=== PATIENT | female | born 1980 | race Caucasian/White ===

== ENCOUNTER 2018-12-01 23:16 | Observation (INO) | payer BC ==
[2018-12-01] MEDS ORDERED: Sodium Chloride 0.9% 1000 ML 1,000 ML IV STA ×2 (23:22→23:55)
[2018-12-01] MEDS ORDERED: Sodium Chloride 0.9% 1000 ML 1,000 ML ONE (23:54)
[2018-12-01 23:58] LABS: BASOPHIL % 0.2 % (0.0-0.4); Basophil (Absolute #) 0.02 (0-0.4); Eosinophil % 0.3 % (0.00-5.0); Eosinophil (Absolute #) 0.03 (0-0.5); Granulocytes % 67.5 % (36.0-66.0); Hematocrit 38.5 % (35-47); Hemoglobin 12.8 gm/dl (12.0-16.0); Lymphocytes % 24.4 % (24.0-44.0); Mean Cell Volume 86.7 fl (78-100); Mean Corpuscular Hemoglobin 28.8 pg (26-32); Mean Corpuscular Hgb Concent. 33.2 g/dl (32-36); Monocyte (Absolute #) 0.78 (0.0-1.3); Monocytes % 7.6 % (0.0-12.0); Platelet Count 191 K/mm3 (150-450); Red Blood Count 4.44 M/mm3 (4.1-5.4); Red Cell Distribution Width 13.3 % (11.5-14.0); White Blood Count 10.2 K/mm3 (4.0-10.5)
[2018-12-02 00:01] LABS: ALBUMIN 4.6 g/dL (3.5-5.0); ALKALINE PHOSPHATASE 67 U/L (38-126); ANION GAP 16.4 MEQ/L (5-15); BLOOD UREA NITROGEN 12 mg/dL (7-17); CHLORIDE 106 mmol/L (98-107); Calcium 9.4 mg/dL (8.4-10.2); Carbon Dioxide 23 mmol/L (22-30); Creatinine 1 0.72 mg/dL (0.52-1.04); ETHYL ALCOHOL 186 mg/dL (0-10); Glucose 90 mg/dL (74-106); Potassium 3.4 mmol/L (3.5-5.1); SGOT/AST 54 U/L (14-36); SGPT/ALT 30 U/L (0-35); SODIUM 142 mmol/L (137-145); Total Protein 8.1 g/dL (6.3-8.2)
[2018-12-02 00:02] LABS: ACETAMINOPHEN < 10 ug/ml (10-30); SALICYLATE < 1.0 mg/dL (2-20)
--- NOTE | 2018-12-02 00:03 | ERPHSYRPT ---
- History of Present Illness Time Seen by Provider: 12/01/18 23:30 Source: patient Exam Limitations: clinical condition Patient Subjective Stated Complaint: pt stating she has been drinking and took a bunch of pills. states she wants to go to [facility] to see her dad. Triage Nursing Assessment: pt alert and oriented, answers questions. pt tearful and uncooperative at times. pt arrive per ambulance, transfers to stretcher with assist of 3. respirations nonlabored with lungs cta. Physician History: PATIENT WITH A HISTORY OF DEPRESSION, SUICIDAL IDEATION, CHRONIC ALCOHOL ABUSE , AFTER DRINKING 5 BEERS TONIGHT, INGESTED NAPROSYN 500MG, INGESTED 26 PILLS 45 MINUTES PRIOR TO ARRIVAL. BOYFRIEND CALLED EMS WHILE PATIENT THREATENING TO COMMIT SUICIDE WHILE INGESTING PILLS. STATING SHE WANTS TO GO BE WITH HER FATHER IN [facility]. ADMITS TO DRINKING ALCOHOL SINCE AGE 11. DENIES HEADACHE, DYSPNEA, COUGH, EMESIS OR DIARRHEA Timing/Duration: today Severity of Symptoms-Max: none Severity of Symptoms-Current: none Context related to: other ( OF FATHER) Suicidal thoughts: attempt, ingestion Associated Symptoms: depressed, suicidal ideation Previous symptoms: same symptoms as today Allergies/Adverse Reactions: acetaminophen [From Pamprin Max] Allergy (Verified 12/01/18 23:46) aspirin [From Pamprin Max] Allergy (Verified 12/01/18 23:46) caffeine [From Pamprin Max] Allergy (Verified 12/01/18 23:46) coconut oil Allergy (Verified 12/01/18 23:46) red (food color) Allergy (Verified 12/01/18 23:46) uracil mustard Allergy (Verified 12/01/18 23:46) Home Medications: Quetiapine Fumarate 25 mg [Seroquel 25 MG] 25 mg PO HS 12/02/18 [History] Vilazodone HCl [Viibryd] 1 each PO HS 12/02/18 [History] Hx Tetanus, Diphtheria Vaccination/Date Given: Yes Hx Influenza Vaccination/Date Given: No Hx Pneumococcal Vaccination/Date Given: No Immunizations Up to Date: Yes - Past Medical History Pertinent Past Medical History: Yes Neurological History: Migraines Cardiac History: No Pertinent History Respiratory History: No Pertinent History Endocrine Medical History: No Pertinent History Musculoskeletal History: Osteoarthritis Other Medical History: post cardiomiopathy. recent diagnosis of tennis elbow - Past Surgical History Past Surgical History: Yes Gastrointestinal: Other Genitourinary: Other Female Surgical History: Section, Tubal Ligation Other Surgical History: breast augmentation, cystoscopy - Social History Smoking Status: Never smoker Exposure to second hand smoke: No Patient Lives Alone: No - Female History Hx Last Menstrual Period: this month Hx Now: No - Review of Systems Constitutional: No Fever, No Chills Eyes: No Symptoms Ears, Nose, & Throat: No Symptoms Respiratory: No Cough, No Dyspnea Cardiac: No Chest Pain, No Edema, No Syncope Abdominal/Gastrointestinal: No Abdominal Pain, No Nausea, No Vomiting, No Diarrhea Genitourinary Symptoms: No Dysuria Musculoskeletal: No Back Pain, No Neck Pain Skin: No Rash Neurological: No Dizziness, No Focal Weakness, No Sensory Changes Psychological: Depression, Suicidal Ideations, Emotional Lability Endocrine: No Symptoms All Other Systems: Reviewed and Negative - Nursing Vital Signs Nursing Vital Signs: Initial Vital Signs Temperature 98.7 F 12/01/18 23:20 Pulse Rate 112 H 12/01/18 23:20 Respiratory Rate 20 12/01/18 23:20 Blood Pressure 135/84 12/01/18 23:20 O2 Sat by Pulse Oximetry 98 12/01/18 23:20 Pain Scale Pain Intensity 0 - Physical Exam General Appearance: no apparent distress Eyes, Ears, Nose, Throat Exam: normal ENT inspection, moist mucous membranes Neck Exam: normal inspection, non-tender, supple Respiratory Exam: normal breath sounds, lungs clear, No respiratory distress Cardiovascular Exam: regular rate/rhythm, No edema Gastrointestinal/Abdominal Exam: soft, normal bowel sounds (NONTENDER), No tenderness, No distention Extremities Exam: normal inspection, normal range of motion, No evidence of injury, No edema Peripheral Pulses: carotid (R): 2+, carotid (L): 2+, femoral (R): 2+, femoral (L ): 2+, dorsalis-pedis (R): 2+, dorsalis-pedis (L): 0, 2+ Current Suicidality: denies suicide plan Neurological Exam: alert, loom checker II-XII nml as tested, 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 Appearance: appropriate appearance, impaired insight Behavior/Eye Contact/Speech: cooperative, intoxicated appearance Skin Exam: normal color, warm, dry, No rash SpO2 Interpretation: normal SpO2: 98 Ordered Tests: Active Orders 24 hr Category Date Time Status Pipe Coremaker STAT Care 12/01/18 23:23 Active EKG-ER Only STAT Care 12/01/18 23:22 Active ACETAMINOPHEN Stat Lab 12/01/18 23:36 Completed CBC W DIFF Stat Lab 12/01/18 23:36 Completed CMP Stat Lab 12/01/18 23:36 Completed ETHYL ALCOHOL Stat Lab 12/01/18 23:36 Completed HCG,QUALITATIVE URINE Stat Lab 12/02/18 00:05 Completed SALICYLATE Stat Lab 12/01/18 23:36 Completed TROPONIN Q3H Lab 12/01/18 23:36 Completed TROPONIN Q3H Lab 12/02/18 02:30 Ordered TROPONIN Q3H Lab 12/02/18 05:30 Ordered TROPONIN Q3H Lab 12/02/18 08:30 Ordered TROPONIN Q3H Lab 12/02/18 11:30 Ordered UA W/RFX UR CULTURE Stat Lab 12/02/18 00:05 Completed Urine Triage Profile Stat Lab 12/02/18 00:05 Completed VENOUS BLOOD GAS Stat Lab 12/01/18 23:56 Completed Transfer Order Routine Transfer 12/02/18 Ordered Medication Summary Discontinued Medications Generic Name Dose Route Start Last Admin Trade Name Freq PRN Reason Stop Dose Admin Sodium Chloride 1,000 mls @ 999 mls/hr 12/01/18 23:22 12/02/18 00:38 Sodium Chloride 0.9% 1000 Ml IV 12/02/18 00:22 Infused .Q1H1M STA Infusion Sodium Chloride 1,000 mls @ 999 mls/hr 12/01/18 23:55 12/02/18 00:37 Sodium Chloride 0.9% 1000 Ml IV 12/02/18 00:55 999 mls/hr .Q1H1M STA Administration Sodium Chloride Confirm 12/01/18 23:54 Sodium Chloride 0.9% 1000 Ml Administered 12/01/18 23:55 Dose 1,000 mls @ ud .ROUTE .STK-MED ONE Sodium Chloride Confirm 12/02/18 00:35 Sodium Chloride 0.9% 1000 Ml Administered 12/02/18 00:36 Dose 1,000 mls @ ud .ROUTE .STK-MED ONE Lab/Rad Data: Laboratory Result Diagrams 12/01/18 23:36 12/01/18 23:36 Laboratory Results 12/02/18 12/02/18 12/02/18 Range/Units 00:05 00:05 00:05 WBC (4.0-10.5) K/mm3 RBC (4.1-5.4) M/mm3 Hgb (12.0-16.0) gm/dl Hct (35-47) % MCV (78-100) fl MCH (26-32) pg MCHC (32-36) g/dl RDW (11.5-14.0) % Plt Count (150-450) K/mm3 MPV (6-9.5) fl Gran % (36.0-66.0) % Eos # (Auto) (0-0.5) Absolute Lymphs (auto) (1.0-4.6) Absolute Monos (auto) (0.0-1.3) Lymphocytes % (24.0-44.0) % Monocytes % (0.0-12.0) % Eosinophils % (0.00-5.0) % Basophils % (0.0-0.4) % Absolute Granulocytes (1.4-6.9) Basophils # (0-0.4) pO2/FiO2 Ratio % VBG pH (7.32-7.42) VBG pCO2 at Pat Temp (42-55) mm/Hg VBG pO2 at Pat Temp (25-40) mm/Hg VBG HCO3 (22-28) meq/L VBG O2 Sat (Harshil) (95-100) VBG Base Excess (-2.0-2.0) VBG Hemoglobin VBG Carboxyhemoglobin (0.0-6.9) % T HGB POC Potassium (3.5-5.1) Sodium (137-145) mmol/L Potassium (3.5-5.1) mmol/L Chloride (98-107) mmol/L Carbon Dioxide (22-30) mmol/L Anion Gap (5-15) MEQ/L BUN (7-17) mg/dL Creatinine (0.52-1.04) mg/dL Estimated GFR ML/MIN Glucose (74-106) mg/dL Calcium (8.4-10.2) mg/dL Total Bilirubin (0.2-1.3) mg/dL AST (14-36) U/L ALT (0-35) U/L Alkaline Phosphatase (38-126) U/L Troponin I (0.000-0.034) ng/mL Serum Total Protein (6.3-8.2) g/dL Albumin (3.5-5.0) g/dL Urine Color COLORLESS (YELLOW) Urine Appearance CLEAR (CLEAR) Urine pH 6.0 (5-6) Ur Specific Vermillion 1.001 (1.005-1.025) Urine Protein NEGATIVE (Negative) Urine Ketones NEGATIVE (NEGATIVE) Urine Blood NEGATIVE (0-5) Narendra/ul Urine Nitrite NEGATIVE (NEGATIVE) Urine Bilirubin NEGATIVE (NEGATIVE) Urine Urobilinogen NEGATIVE (0-1) mg/dL Ur Leukocyte Esterase NEGATIVE (NEGATIVE) Urine WBC (Auto) NONE SEEN (0-5) /HPF Urine RBC (Auto) NONE SEEN (0-2) /HPF U Epithel Cells (Auto) NONE (FEW) /HPF Urine Bacteria (Auto) NONE SEEN (NEGATIVE) /HPF Urine Culture Reflexed NO (NO) Urine Glucose NEGATIVE (NEGATIVE) mg/dL Urine HCG, Qual NEGATIVE (Negative) Salicylates (2-20) mg/dL Urine Opiates Level NEGATIVE (NEGATIVE) Ur Methadone NEGATIVE (NEGATIVE) Acetaminophen (10-30) ug/ml Urine Barbiturates NEGATIVE (NEGATIVE) Ur Phencyclidine (PCP) NEGATIVE (NEGATIVE) Urine Amphetamine NEGATIVE (NEGATIVE) U Benzodiazepine Level NEGATIVE (NEGATIVE) Urine Cocaine NEGATIVE (NEGATIVE) Urine Marijuana (THC) NEGATIVE (NEGATIVE) Ethyl Alcohol (0-10) mg/dL 12/02/18 12/01/18 12/01/18 Range/Units 00:01 23:36 23:36 WBC (4.0-10.5) K/mm3 RBC (4.1-5.4) M/mm3 Hgb (12.0-16.0) gm/dl Hct (35-47) % MCV (78-100) fl MCH (26-32) pg MCHC (32-36) g/dl RDW (11.5-14.0) % Plt Count (150-450) K/mm3 MPV (6-9.5) fl Gran % (36.0-66.0) % Eos # (Auto) (0-0.5) Absolute Lymphs (auto) (1.0-4.6) Absolute Monos (auto) (0.0-1.3) Lymphocytes % (24.0-44.0) % Monocytes % (0.0-12.0) % Eosinophils % (0.00-5.0) % Basophils % (0.0-0.4) % Absolute Granulocytes (1.4-6.9) Basophils # (0-0.4) pO2/FiO2 Ratio 21.0 % VBG pH 7.35 (7.32-7.42) VBG pCO2 at Pat Temp 46 (42-55) mm/Hg VBG pO2 at Pat Temp 22 L (25-40) mm/Hg VBG HCO3 25.4 (22-28) meq/L VBG O2 Sat (Harshil) 38.0 L (95-100) VBG Base Excess -0.6 (-2.0-2.0) VBG Hemoglobin 13.2 VBG Carboxyhemoglobin 2.5 (0.0-6.9) % T HGB POC Potassium 3.4 L (3.5-5.1) Sodium 142 (137-145) mmol/L Potassium 3.4 L (3.5-5.1) mmol/L Chloride 106 (98-107) mmol/L Carbon Dioxide 23 (22-30) mmol/L Anion Gap 16.4 H (5-15) MEQ/L BUN 12 (7-17) mg/dL Creatinine 0.72 (0.52-1.04) mg/dL Estimated GFR > 60.0 ML/MIN Glucose 90 (74-106) mg/dL Calcium 9.4 (8.4-10.2) mg/dL Total Bilirubin 0.30 (0.2-1.3) mg/dL AST 54 H (14-36) U/L ALT 30 (0-35) U/L Alkaline Phosphatase 67 (38-126) U/L Troponin I < 0.012 (0.000-0.034) ng/mL Serum Total Protein 8.1 (6.3-8.2) g/dL Albumin 4.6 (3.5-5.0) g/dL Urine Color (YELLOW) Urine Appearance (CLEAR) Urine pH (5-6) Ur Specific Vermillion (1.005-1.025) Urine Protein (Negative) Urine Ketones (NEGATIVE) Urine Blood (0-5) Narendra/ul Urine Nitrite (NEGATIVE) Urine Bilirubin (NEGATIVE) Urine Urobilinogen (0-1) mg/dL Ur Leukocyte Esterase (NEGATIVE) Urine WBC (Auto) (0-5) /HPF Urine RBC (Auto) (0-2) /HPF U Epithel Cells (Auto) (FEW) /HPF Urine Bacteria (Auto) (NEGATIVE) /HPF Urine Culture Reflexed (NO) Urine Glucose (NEGATIVE) mg/dL Urine HCG, Qual (Negative) Salicylates < 1.0 L (2-20) mg/dL Urine Opiates Level (NEGATIVE) Ur Methadone (NEGATIVE) Acetaminophen < 10 L (10-30) ug/ml Urine Barbiturates (NEGATIVE) Ur Phencyclidine (PCP) (NEGATIVE) Urine Amphetamine (NEGATIVE) U Benzodiazepine Level (NEGATIVE) Urine Cocaine (NEGATIVE) Urine Marijuana (THC) (NEGATIVE) Ethyl Alcohol 186 H (0-10) mg/dL 12/01/18 Range/Units 23:36 WBC 10.2 (4.0-10.5) K/mm3 RBC 4.44 (4.1-5.4) M/mm3 Hgb 12.8 (12.0-16.0) gm/dl Hct 38.5 (35-47) % MCV 86.7 (78-100) fl MCH 28.8 (26-32) pg MCHC 33.2 (32-36) g/dl RDW 13.3 (11.5-14.0) % Plt Count 191 (150-450) K/mm3 MPV 11.0 H (6-9.5) fl Gran % 67.5 H (36.0-66.0) % Eos # (Auto) 0.03 (0-0.5) Absolute Lymphs (auto) 2.50 (1.0-4.6) Absolute Monos (auto) 0.78 (0.0-1.3) Lymphocytes % 24.4 (24.0-44.0) % Monocytes % 7.6 (0.0-12.0) % Eosinophils % 0.3 (0.00-5.0) % Basophils % 0.2 (0.0-0.4) % Absolute Granulocytes 6.90 (1.4-6.9) Basophils # 0.02 (0-0.4) pO2/FiO2 Ratio % VBG pH (7.32-7.42) VBG pCO2 at Pat Temp (42-55) mm/Hg VBG pO2 at Pat Temp (25-40) mm/Hg VBG HCO3 (22-28) meq/L VBG O2 Sat (Harshil) (95-100) VBG Base Excess (-2.0-2.0) VBG Hemoglobin VBG Carboxyhemoglobin (0.0-6.9) % T HGB POC Potassium (3.5-5.1) Sodium (137-145) mmol/L Potassium (3.5-5.1) mmol/L Chloride (98-107) mmol/L Carbon Dioxide (22-30) mmol/L Anion Gap (5-15) MEQ/L BUN (7-17) mg/dL Creatinine (0.52-1.04) mg/dL Estimated GFR ML/MIN Glucose (74-106) mg/dL Calcium (8.4-10.2) mg/dL Total Bilirubin (0.2-1.3) mg/dL AST (14-36) U/L ALT (0-35) U/L Alkaline Phosphatase (38-126) U/L Troponin I (0.000-0.034) ng/mL Serum Total Protein (6.3-8.2) g/dL Albumin (3.5-5.0) g/dL Urine Color (YELLOW) Urine Appearance (CLEAR) Urine pH (5-6) Ur Specific Vermillion (1.005-1.025) Urine Protein (Negative) Urine Ketones (NEGATIVE) Urine Blood (0-5) Narendra/ul Urine Nitrite (NEGATIVE) Urine Bilirubin (NEGATIVE) Urine Urobilinogen (0-1) mg/dL Ur Leukocyte Esterase (NEGATIVE) Urine WBC (Auto) (0-5) /HPF Urine RBC (Auto) (0-2) /HPF U Epithel Cells (Auto) (FEW) /HPF Urine Bacteria (Auto) (NEGATIVE) /HPF Urine Culture Reflexed (NO) Urine Glucose (NEGATIVE) mg/dL Urine HCG, Qual (Negative) Salicylates (2-20) mg/dL Urine Opiates Level (NEGATIVE) Ur Methadone (NEGATIVE) Acetaminophen (10-30) ug/ml Urine Barbiturates (NEGATIVE) Ur Phencyclidine (PCP) (NEGATIVE) Urine Amphetamine (NEGATIVE) U Benzodiazepine Level (NEGATIVE) Urine Cocaine (NEGATIVE) Urine Marijuana (THC) (NEGATIVE) Ethyl Alcohol (0-10) mg/dL - Progress Progress Note: 02/23/19 00:08 CONSULTED POISON CONTROL AT 2345, IV NORMAL SALINE 1 LITER/HR X 2, ALL LABS REVIEWED AND ARE NORMAL EXCEPT ETOH-186, ACTMN<10, SALIC <1, K+3.4 Discussed with : John (DISCUSSED WITH DR PRITCHETT AT 0045 FOR OBSERVATION) - Departure Time of Disposition: 01:09 Departure Disposition: Observation Clinical Impression: SUICIDAL IDEATION, ATTEMPTED DRUG OVERDOSE, ALCOHOL INTOXICATION Condition: Stable Critical Care Time: No Referrals: DEVORA BARKER [Primary Care Provider] -
[2018-12-02 00:08] LABS: VBG BASE EXCESS -0.6 (-2.0-2.0); VBG CARBOXYHEMOGLOBIN 2.5 % T HGB (0.0-6.9); VBG HCO3- 25.4 meq/L (22-28); VBG HEMOGLOBIN 13.2; VBG POTASSIUM 3.4 (3.5-5.1); VBG pH 7.35 (7.32-7.42)
[2018-12-02 00:12] LABS: Appearance CLEAR (CLEAR); Bilirubin NEGATIVE (NEGATIVE); Blood NEGATIVE Ery/ul (0-5); Glucose NEGATIVE (NEGATIVE); Ketones NEGATIVE (NEGATIVE); Leukocyte Esterase NEGATIVE (NEGATIVE); Nitrite NEGATIVE (NEGATIVE); Protein,Urine Dip NEGATIVE (Negative); Specific Gravity 1.001 (1.005-1.025); Urobilinogen NEGATIVE mg/dL (0-1)
[2018-12-02 00:13] LABS: Bacteria NONE SEEN /HPF (NEGATIVE); RBC NONE SEEN /HPF (0-2); WBC NONE SEEN /HPF (0-5)
[2018-12-02 00:26] LABS: Amphetamine,Urine NEGATIVE (NEGATIVE); Barbiturate,Urine NEGATIVE (NEGATIVE); Benzodiazepine,Urine NEGATIVE (NEGATIVE); Cocaine,Urine NEGATIVE (NEGATIVE); Methadone,Urine NEGATIVE (NEGATIVE); Opiate,Urine NEGATIVE (NEGATIVE); PCP,Urine NEGATIVE (NEGATIVE); THC,Urine NEGATIVE (NEGATIVE)
[2018-12-02] MEDS ORDERED: Sodium Chloride 0.9% 1000 ML 1,000 ML ONE (00:35)
[2018-12-02] MEDS ORDERED: Zofran 4 MG/2 ML VIAL IV ONE (01:31)
[2018-12-02] MEDS ORDERED: Zofran 4 MG/2 ML VIAL ONE (01:36)
[2018-12-02] MEDS ORDERED: Ativan 2 MG/1 ML VIAL ONE (01:36)
[2018-12-02] MEDS: Ativan 2 MG/1 ML VIAL IV ONE ×2 (01:41→01:46)
[2018-12-02] MEDS ORDERED: Sodium Chloride 0.9% W/ 20 mEq KCl/LITER 1,000 ML IV SCH (02:59)
[2018-12-02] MEDS ORDERED: Ativan 2 MG/1 ML VIAL IV PRN (03:02)
[2018-12-02] MEDS ORDERED: PROTONIX 40 MG IV IV SCH (04:00)
[2018-12-02 04:23] LABS: ACETAMINOPHEN < 10 ug/ml (10-30); SALICYLATE < 1.0 mg/dL (2-20)
[2018-12-02] MEDS: Zofran 4 MG/2 ML VIAL IV PRN ×3 (06:26→18:54)
[2018-12-02] MEDS ORDERED: FLUZONE QUAD (36mo-64yo) 2018-2019 SYRINGE IM ONE (10:00)
[2018-12-02] MEDS ORDERED: MEDICATION INTERVENTION PO SCH (10:45)
[2018-12-02] MEDS: Sodium Chloride 0.9% 1000 ML 1,000 ML IV SCH ×3 (11:29→22:41)
[2018-12-02 11:49] LABS: ALBUMIN 3.8 g/dL (3.5-5.0); ALKALINE PHOSPHATASE 55 U/L (38-126); ANION GAP 13.6 MEQ/L (5-15); BLOOD UREA NITROGEN 9 mg/dL (7-17); CHLORIDE 108 mmol/L (98-107); Calcium 8.4 mg/dL (8.4-10.2); Carbon Dioxide 22 mmol/L (22-30); Creatinine 1 0.75 mg/dL (0.52-1.04); ETHYL ALCOHOL < 10 mg/dL (0-10); Glucose 100 mg/dL (74-106); Potassium 3.8 mmol/L (3.5-5.1); SGOT/AST 32 U/L (14-36); SGPT/ALT 25 U/L (0-35); SODIUM 139 mmol/L (137-145); Total Protein 6.8 g/dL (6.3-8.2)
[2018-12-02] MEDS ORDERED: Seroquel 25 MG ONE (16:59)
[2018-12-02 21:58] LABS: ALBUMIN 3.6 g/dL (3.5-5.0); ALKALINE PHOSPHATASE 45 U/L (38-126); ANION GAP 10.1 MEQ/L (5-15); BLOOD UREA NITROGEN 8 mg/dL (7-17); CHLORIDE 109 mmol/L (98-107); Calcium 8.2 mg/dL (8.4-10.2); Carbon Dioxide 22 mmol/L (22-30); Creatinine 1 0.73 mg/dL (0.52-1.04); Glucose 98 mg/dL (74-106); Potassium 3.8 mmol/L (3.5-5.1); SGOT/AST 30 U/L (14-36); SGPT/ALT 23 U/L (0-35); SODIUM 138 mmol/L (137-145); Total Protein 6.4 g/dL (6.3-8.2)
[2018-12-02] MEDS ORDERED: NON-FORMULARY ITEM PO SCH (22:00)
[2018-12-02] MEDS ORDERED: Seroquel 25 MG PO SCH (22:00)
[2018-12-02] MEDS ORDERED: VILAZODONE HCL PO SCH (22:00)
[2018-12-02 23:59] VITALS: BP 143/86; O2SAT 100
[2018-12-03 00:05] VITALS: PULSE 96
[2018-12-03] MEDS ORDERED: PROTONIX 40 MG IV IV SCH (10:00)
--- NOTE | 2018-12-04 11:01 | HP ---
CHIEF COMPLAINT: Intentional overdose of naproxen and alcohol. HISTORY OF PRESENT ILLNESS: The patient is a 38 year-old white female who reports that she took approximately 26 naproxen pills. She reports those pills were new to her for tennis elbow. She had just started taking them. She normally sees Jocy Manzanares. She has also been placed on new antidepressant. She is on Seroquel 25 mg at night. She reports she did see somebody over at [place] previously but that physician has left town and she is not currently in outpatient management. MEDICATIONS: Her other medications include Viibryd. ALLERGIES: TYLENOL, ASPIRIN, CAFFEINE, URACIL. PHYSICAL EXAMINATION: Revealed a well nourished, well developed 38 year-old white female who is cooperative to exam this morning although that was not the case last evening. She currently voices no intention to do herself any harm presently. Her vital signs on admission showed temperature 98.7F, pulse 112, respiratory rate 20, blood pressure 135/84. O2 saturation 98%. HEENT: Normocephalic, atraumatic. Pupils equal round reactive to light. Extraocular movements intact. Oropharynx is pink and moist. NECK: Supple without lymphadenopathy, thyromegaly or JVD. CHEST: Clear to auscultation. HEART: Regular rate and rhythm without murmurs, rubs or gallops. ABDOMEN: Soft. No palpable masses. EXTREMITIES: Without cyanosis, clubbing or edema. NEUROLOGIC: The patient is alert and oriented x3. She is somewhat subdued in her mood and her affect is somewhat flat. LAB DATA AND TESTS: Revealed ETOH this morning to be 32. Acetaminophen and salicylates were negative. Urine HCG was negative. Her CBC was normal. Metabolic panel showed sugar 90, BUN 12, creatinine 0.72. Potassium was somewhat low at 3.4. Liver enzymes show slight elevation of AST at 54. ETOH on admission was 186. Her venous blood gas showed pH 7.35, pCO2 46. Troponin was less than 0.012. Urine drug screen was negative. UA was normal with specific gravity of 1.001. The patient has sinus tachycardia on telemetry tracing but otherwise shows no acute changes. ASSESSMENT: We will obtain [facility] consultation due to her current affect presently and stating that she does not wish to do herself any harm, will likely recommend outpatient follow up, to be discharged home with someone that can stay with her. We have been flushing her kidneys with normal saline currently 200 cc/hour. We will monitor her kidney function and liver function for possibility of damage. She does report some nausea from the medication otherwise. She is currently being monitored in the ICU and we will monitor her and discharge her when she is stable medically as per [facility]'s recommendations.
== END 2018-12-03 01:27 ==
LOC: ED 23:16 → ICU 12-02 02:50
PROVIDERS: ADMIT Family Medicine; ATTEND Family Medicine
DX: T39.312A Poisoning by propionic acid derivatives, intentional self-harm, initial encounter (principal); F10.929 Alcohol use, unspecified with intoxication, unspecified; Z79.899 Other long term (current) drug therapy
CPT/HCPCS: 36415; 80053; 80307; 81001; 82805; 84484; 84703; 85025; 93005; 93041; 96360; 96374; 96375; 99285; G0008; G0378; G0481; 90686; 90791; J2060; J2405; Q3014; A9270-GY; G0480

== ENCOUNTER 2020-11-18 06:24 | Day surgery (SDC) | payer OTHER ==
[~2020-11-18 06:24] MED LIST: Lactated Ringers 1,000 ML IV ONE
[2020-11-18] MEDS ORDERED: CEFAZOLIN 2 GM-D5W BAG** 2 GM/50 ML ML IV SCH (06:30)
[2020-11-18] MEDS ORDERED: Lactated Ringers 1,000 ML IV SCH (07:00)
[2020-11-18] MEDS ORDERED: Xylocaine-Mpf 2% 5 Ml Vial ONE (08:12)
[2020-11-18] MEDS ORDERED: SUBLIMAZE 100 MCG/2 ML ONE ×2 (08:12→08:50)
[2020-11-18] MEDS ORDERED: Decadron 4 MG INJ ONE (08:12)
[2020-11-18] MEDS ORDERED: Zofran 4 MG/2 ML VIAL ONE ×2 (08:12→09:00)
[2020-11-18] MEDS ORDERED: DIPRIVAN 200 MG/20 ML IV ONE (08:12)
[2020-11-18] MEDS ORDERED: Hydromorphone 1 mg/ml Injection ONE (08:50)
[2020-11-18] MEDS ORDERED: Lactated Ringers 1,000 ML IV ONE (09:02)
[2020-11-18] MEDS ORDERED: Compazine 10 MG/2 ML IV ONE (10:23)
[2020-11-18] MEDS ORDERED: TORAdol 30 mg Injection IV ONE (10:33)
[2020-11-18] MEDS ORDERED: TORAdol 30 mg Injection ONE (10:36)
[2020-11-18 10:51] VITALS: BP 127/85; PULSE 78; O2SAT 98
--- NOTE | 2020-11-19 07:43 | OP ---
SURGERY DATE/TIME: 11/18/2020811 PREOPERATIVE DIAGNOSIS: Abnormal uterine bleeding. POSTOPERATIVE DIAGNOSIS: Abnormal uterine bleeding. PROCEDURE: Hysteroscopy D&C with NovaSure ablation. SURGEON: Sebastian France D.O. INSTALL TECHNICIAN: Jonny Metzger surgical pathologist. ANESTHESIA: General. ESTIMATED BLOOD LOSS: Minimal. COMPLICATIONS: None. INDICATIONS: The risks, benefits, indications and alternatives of the procedure were reviewed with the patient prior to the procedure. The patient understood the risk of infection, bleeding, bowel injury, bladder injury, ureteral injury, uterine perforation, pelvic infection, thromboembolic disorder associated with this surgery and desires to have this surgery as a possible means to alleviate her current medical condition. DESCRIPTION OF PROCEDURE AND FINDINGS: At this point the patient is taken to the operating room, given general sedation, placed in the dorsal lithotomy position. Prepped and draped in the usual sterile fashion. A weighted speculum is then placed in the patient's vagina and the anterior lip of the cervix was grasped with a single tooth tenaculum. Endocervical dilators were advanced through the endocervical canal as a means to dilate the cervix and at this point sound was used to measure the uterine size which was approximately 8 to 9 cm. From this point the 5 mm hysteroscope was then placed in through the endocervical canal where visualization revealed no gross abnormalities. The hysteroscope was then removed and at this point a curette was introduced into the fundus of the uterus where curettage was performed in all quadrants of the uterus retrieving a mild to moderate amount of tissue. From this point the curette was removed and the NovaSure was then placed through the endocervical canal where it was engaged and the machine was turned on. It was measured with a length of 6.5 cm and a width of 4.0. The machine was turned on for approximately 49 seconds. After completion of the ablation the NovaSure was disengaged and removed from the uterine cavity. All subsequent instruments were then removed from the patient's vaginal region at this time. The patient was then taken out of the dorsal lithotomy position, was taken out of anesthesia and was then taken to the recovery room in stable condition. All instruments and laps were accounted for x2.
== END 2020-11-18 10:55 | disposition home or self-care (01) ==
LOC: SDC 06:24
PROVIDERS: ATTEND Obstetrics & Gynecology
DX: N93.9 Abnormal uterine and vaginal bleeding, unspecified (principal)
CPT/HCPCS: 84703; J0690; J1100; J1170; J1885; J2405; J2704; J3010

== ENCOUNTER 2021-07-05 13:49 | Emergency (ER) | payer OTHER ==
[2021-07-05] MEDS ORDERED: Rocephin 1000 MG INJ IM ONE (14:06)
[2021-07-05] MEDS ORDERED: Rocephin 1000 MG INJ ONE (14:08)
[2021-07-05] MEDS ORDERED: XYLOCAINE 1% HCL 20 ML MDV ONE (14:08)
--- NOTE | 2021-07-05 14:11 | ERPHSYRPT ---
- History of Present Illness Time Seen by Provider: 07/05/21 14:07 Source: patient Exam Limitations: no limitations Patient Subjective Stated Complaint: Sore throat Triage Nursing Assessment: Patient ambulated back to ED and transferred self to bed. Patient A+O X3. Patient's skin pink, warm and dry. Patient complains of sore throat since yesterday. Patient complains of constant sharp pain 10/10 to throat. Redness and white patches noted in back of throat. Physician History: Patient complains of sore throat since yesterday. Patient complains of constant sharp pain 10/10 to throat. Redness and white patches noted in back of throat. Timing/Duration: yesterday Cough Quality/Degree: no cough Associated Symptoms: sore throat Allergies/Adverse Reactions: acetaminophen [From Pamprin Max] Allergy (Verified 07/05/21 13:55) aspirin [From Pamprin Max] Allergy (Verified 07/05/21 13:55) caffeine [From Pamprin Max] Allergy (Verified 07/05/21 13:55) coconut oil Allergy (Verified 07/05/21 13:55) red (food color) Allergy (Verified 07/05/21 13:55) uracil mustard Allergy (Verified 07/05/21 13:55) Home Medications: ALPRAZolam 0.25 MG [xanAX 0.25 MG] 0.25 mg PO BID 11/10/20 [History] Amitriptyline HCl 25 mg [Elavil 25 mg] 25 mg PO DAILY 11/10/20 [History] Famotidine [Pepcid] 20 mg PO BID 11/10/20 [History] Lurasidone HCl [Latuda] 40 mg PO HS 11/10/20 [History] Metoprolol Succinate [Toprol Xl] 25 mg PO DAILY 11/10/20 [History] Cetirizine HCl [Zyrtec] 5 mg PO DAILY 11/18/20 [History] Hx Tetanus, Diphtheria Vaccination/Date Given: Yes Hx Influenza Vaccination/Date Given: No Hx Pneumococcal Vaccination/Date Given: No Immunizations Up to Date: Yes Travel Risk - International Travel Have you traveled outside of the country in past 3 weeks: No - Coronavirus Screening Are you exhibiting any of the following symptoms?: No Close contact with a COVID-19 positive Pt in past 14-21 Days: No - Vaccine Status Have you recieved a Covid-19 vaccination: No - Review of Systems Constitutional: No Symptoms Eyes: No Symptoms Ears, Nose, & Throat: Throat Pain Respiratory: No Symptoms Cardiac: No Symptoms Abdominal/Gastrointestinal: No Symptoms Genitourinary Symptoms: No Symptoms Musculoskeletal: No Symptoms - Past Medical History Pertinent Past Medical History: Yes Neurological History: No Pertinent History ENT History: No Pertinent History Cardiac History: Other Respiratory History: No Pertinent History Endocrine Medical History: No Pertinent History Musculoskeletal History: No Pertinent History GI Medical History: No Pertinent History History: No Pertinent History Psycho-Social History: Depression Female Reproductive Disorders: No Pertinent History Other Medical History: cardiomyopathy - Past Surgical History Past Surgical History: Yes Neuro Surgical History: No Pertinent History Cardiac: No Pertinent History Respiratory: No Pertinent History Gastrointestinal: Other Genitourinary: Other Musculoskeletal: No Pertinent History Female Surgical History: Section, Tubal Ligation Other Surgical History: breast augmentation, cystoscopy, kidney stone removal - Social History Smoking Status: Never smoker Exposure to second hand smoke: No Drug Use: none Patient Lives Alone: No - Female History Hx Last Menstrual Period: ablation Hx Now: No - Nursing Vital Signs Nursing Vital Signs: Initial Vital Signs Temperature 98.4 F 07/05/21 13:56 Pulse Rate 111 H 07/05/21 13:56 Respiratory Rate 18 07/05/21 13:56 Blood Pressure 149/98 07/05/21 13:56 O2 Sat by Pulse Oximetry 97 07/05/21 13:56 Pain Scale Pain Intensity 10 - Physical Exam General Appearance: no apparent distress, alert Eye Exam: PERRL/EOMI, eyes nml inspection Ears, Nose, Throat Exam: normal ENT inspection, TMs normal, moist mucous membranes, pharyngeal erythema, tonsillar exudate Neck Exam: normal inspection, non-tender, supple, full range of motion Respiratory Exam: normal breath sounds, lungs clear, No respiratory distress Cardiovascular Exam: regular rate/rhythm, normal heart sounds Gastrointestinal/Abdomen Exam: soft, No tenderness Back Exam: normal inspection, No CVA tenderness, No vertebral tenderness Extremity Exam: normal inspection, normal range of motion Neurologic Exam: alert, 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, cooperative, normal mood/affect, sensation nml, No motor deficits Skin Exam: normal color, warm, dry, No rash Lymphatic Exam: No adenopathy SpO2: 97 - Course Nursing assessment & vital signs reviewed: Yes Ordered Tests: Medication Summary Discontinued Medications Generic Name Dose Route Start Last Admin Trade Name Mindy PRN Reason Stop Dose Admin Ceftriaxone Sodium 1,000 mg 07/05/21 14:06 Rocephin 1000 Mg Inj IM 07/05/21 14:07 STAT ONE - Progress Progress: unchanged Air Movement: good Blood Culture(s) Obtained: No Antibiotics given: Yes Counseled pt/family regarding: diagnosis, need for follow-up - Departure Departure Disposition: Home Clinical Impression: Strep pharyngitis Condition: Stable Critical Care Time: No Referrals: DEVORA BARKER NP [Primary Care Provider] - Instructions: Sore Throat, Adult (DC) Additional Instructions: Discharge/Care Plan CARL AGUILAR was seen on 07/05/21 in the Emergency Room. The patient was counseled regarding Diagnosis,Lab results, Imaging studies, need for follow up and when to return to the Emergency Room. Prescriptions given: Discharge Note I have spoken with the patient and/or caregivers. I have explained the patient's condition, diagnosis and treatment plan based on the information available to me at this time. I have answered the patient's and/or caregiver's questions and addressed any concerns. The patient and/or caregivers have as good understanding of the patient's diagnosis, condition and treatment plan as can be expected at this point. The vital signs have been stable. The patient's condition is stable and appropriate for discharge from the emergency department. The patient will pursue further outpatient evaluation with the primary care physician or other designated or consulting physician as outlined in the discharge instructions. The patient and/or caregivers are agreeable to this plan of care and follow-up instructions have been explained in detail. The patient and/or caregivers have received these instruction. The patient/and or caregivers are aware that any significant change in condition or worsening of symptoms should prompt an immediate return to this or the closest emergency department or call 911. CARL AGUILAR was seen on 07/05/21 n the Emergency Room. At that time you were treated for an emergent condition, during your visit Laboratory, Radiology and/or other procedures may have been ordered. It is very important that you follow-up with your Primary Care Physician DEVORA BARKER within the next 24-48 hours to review your Emergency Room visit and the final results of testing that was ordered. Some test results such as Urine Cultures, Blood Cultures, and other cultures if ordered will not be finalized for 24-48 hours. If you do not have a Primary Care Provider please call the medical records department at [phone] ext [phone] to obtain a copy of your results or you may sign into our patient portal to obtain these results by visiting us @ [email or web address] and completing the following steps: 1. Click on the Patient Portal link 2. Click the Patient Self Enrollment Link to complete the enrollment form and entering your 3. Once the enrollment form is completed you will receive an email with a temporary ID and password at the email address you provided. 4. Next choose a user name and password. Your user name must be at least 4 characters long and your password must be at least 4 characters long. 5. Choose a security question from the list and provide your answer to the question. If you already have signed into the Health Portal you may access your Health Care Information 02/05 by the following steps: 1. Login to our website @ [email or web address] 2. Enter your original user name and password. FAQS The [facility] Health Portal is an online tool that contains your Lab Results, Radiology Reports, Visit History, Discharge Instructions and Health Summary Lab and Radiology Results will not be available for 72 hours on the portal. The Portal is a secure site, passwords are encryted and URLs are re-written so they cannot be copied and pasted. You and authorized family members are the only ones who can access your Portal. Also there is a timeout feature that protects your information if you leave the Portal page open. If you have technical difficulty please use the Contact Us link on the page this will allow you to submit any questions you have regarding the Portal or you may contact the Medical Record Department at [phone] ext [phone]. Prescriptions: Azithromycin [Zithromax] 250 mg PO UD 5 Days #6 tablet
[2021-07-05 15:08] VITALS: BP 142/99; PULSE 98; O2SAT 98
== END 2021-07-05 15:09 | disposition home or self-care (01) ==
LOC: ED 13:49
DX: J02.0 Streptococcal pharyngitis (principal)
CPT/HCPCS: 96372; 99283; J0696

== ENCOUNTER 2022-04-21 00:25 | Emergency (ER) | payer OTHER ==
[2022-04-21] MEDS ORDERED: Zofran 4 MG/2 ML VIAL IV ONE ×2 (00:56→01:53)
[2022-04-21] MEDS ORDERED: MORPHINE SULFATE 2 MG INJ IV ONE (00:56)
[2022-04-21] MEDS ORDERED: Sodium Chloride 0.9% 1000 ML 1,000 ML IV STA ×2 (00:56→02:21)
--- NOTE | 2022-04-21 01:01 | ERPHSYRPT ---
- History of Present Illness Time Seen by Provider: 04/21/22 00:50 Historian: patient Exam Limitations: no limitations Patient Subjective Stated Complaint: pt states she ate moroccan food 4 hours ago, pt states she was having diarrhea soon after eating. Pt states she has had diarrhea 7 times and countless episodes of vomiting. pt rqates pain in abdomen at 10/10 Triage Nursing Assessment: pt in position on bed holding abdomen. alert and oriented x4, no SOB or CP. no fever noted. Physician History: Patient is a 42-year-old female presents to emergency department for evaluation of epigastric pain. Pain started approximately 4 hours prior to arrival. Patient states she had [place] food and shortly thereafter developed diarrhea. Patient states she felt very nauseous. Patient described as 7 bouts of diarrhea and numerous bouts of vomiting. Pain is primarily in the epigastrium. Patient rates pain 10 out of 10. No trauma. No fever. No rash. Symptoms are moderate in intensity. Symptoms are constant. No specific worsening or improving factors. Patient voices no other complaints or concerns at this time. Portions of this note were created with voice recognition technology. There may be grammatical, spelling, punctuation or sound alike errors Timing/Duration: today Activities at Onset: none Quality: aching Abdominal Pain Onset Location: epigastric Pain Radiation: no radiation Severity of Pain-Max: moderate Severity of Pain-Current: mild Modifying Factors: Improves With: nothing Associated Symptoms: diarrhea, nausea, vomiting Previous symptoms: no prior history Allergies/Adverse Reactions: acetaminophen [From Pamprin Max] Allergy (Verified 04/21/22 00:44) aspirin [From Pamprin Max] Allergy (Verified 04/21/22 00:44) caffeine [From Pamprin Max] Allergy (Verified 04/21/22 00:44) coconut oil Allergy (Verified 04/21/22 00:44) red (food color) Allergy (Verified 04/21/22 00:44) uracil mustard Allergy (Verified 04/21/22 00:44) Home Medications: ALPRAZolam 0.25 MG [xanAX 0.25 MG] 0.25 mg PO BID 11/10/20 [History] Amitriptyline HCl 25 mg [Amitriptyline 25 mg Tablet] 25 mg PO DAILY 11/10/20 [History] Famotidine [Pepcid] 20 mg PO BID 11/10/20 [History] Lurasidone HCl [Latuda] 40 mg PO HS 11/10/20 [History] Metoprolol Succinate [Toprol Xl] 25 mg PO DAILY 11/10/20 [History] Cetirizine HCl [Zyrtec] 5 mg PO DAILY 11/18/20 [History] Hx Tetanus, Diphtheria Vaccination/Date Given: Yes Hx Influenza Vaccination/Date Given: No Hx Pneumococcal Vaccination/Date Given: No Travel Risk - International Travel Have you traveled outside of the country in past 3 weeks: No - Coronavirus Screening Are you exhibiting any of the following symptoms?: No Close contact with a COVID-19 positive Pt in past 14-21 Days: No - Vaccine Status Have you recieved a Covid-19 vaccination: No 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 - Vaccination Dates Dates if Unknown: unknown - Review of Systems Constitutional: No Symptoms, No Fever, No Chills Eyes: No Symptoms Ears, Nose, & Throat: No Symptoms Respiratory: No Symptoms, No Cough, No Dyspnea Cardiac: No Symptoms, No Chest Pain, No Edema, No Syncope Abdominal/Gastrointestinal: No Symptoms, No Abdominal Pain, No Nausea, No Vomiting, No Diarrhea Genitourinary Symptoms: No Symptoms, No Dysuria Musculoskeletal: No Symptoms, No Back Pain, No Neck Pain Skin: No Symptoms, No Rash Neurological: No Symptoms, No Dizziness, No Focal Weakness, No Sensory Changes Psychological: No Symptoms Endocrine: No Symptoms Hematologic/Lymphatic: No Symptoms Immunological/Allergic: No Symptoms All Other Systems: Reviewed and Negative - Past Medical History Pertinent Past Medical History: Yes Neurological History: No Pertinent History ENT History: No Pertinent History Cardiac History: Other Respiratory History: No Pertinent History Endocrine Medical History: No Pertinent History Musculoskeletal History: No Pertinent History GI Medical History: No Pertinent History History: No Pertinent History Psycho-Social History: Depression Female Reproductive Disorders: No Pertinent History Other Medical History: cardiomyopathy - Past Surgical History Past Surgical History: Yes Neuro Surgical History: No Pertinent History Cardiac: No Pertinent History Respiratory: No Pertinent History Gastrointestinal: Other Genitourinary: Other Musculoskeletal: No Pertinent History Female Surgical History: Section, Tubal Ligation Other Surgical History: breast augmentation, cystoscopy, kidney stone removal, ablasion - Social History Smoking Status: Never smoker Exposure to second hand smoke: No Drug Use: none Patient Lives Alone: No - Female History Hx Last Menstrual Period: ablasion Hx Now: No - Nursing Vital Signs Nursing Vital Signs: Initial Vital Signs Temperature 97.3 F 04/21/22 00:33 Pulse Rate 80 04/21/22 00:33 Respiratory Rate 20 04/21/22 00:33 Blood Pressure 142/100 04/21/22 00:33 O2 Sat by Pulse Oximetry 98 04/21/22 00:33 Pain Scale Pain Intensity 3 - Physical Exam General Appearance: no apparent distress, alert Eye Exam: PERRL/EOMI, eyes nml inspection Ears, Nose, Throat Exam: normal ENT inspection, pharynx normal, moist mucous membranes Neck Exam: normal inspection, non-tender, supple, full range of motion Respiratory Exam: normal breath sounds, lungs clear, airway intact, No respiratory distress Cardiovascular Exam: regular rate/rhythm, normal heart sounds, normal peripheral pulses Gastrointestinal/Abdomen Exam: soft, normal bowel sounds, tenderness (Epigastric tenderness to palpation), No mass Back Exam: normal inspection, normal range of motion, No CVA tenderness, No vertebral tenderness Extremity Exam: normal inspection, normal range of motion, pelvis stable Neurologic Exam: alert, 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, cooperative, normal mood/affect, nml cerebellar function, sensation nml, No motor deficits Skin Exam: normal color, warm, dry SpO2 Interpretation: normal SpO2: 98 O2 Delivery: Room Air - Course Nursing assessment & vital signs reviewed: Yes - CT Exams Abdomen/Pelvis CT Interpretation: Tele-radiologist Report (6 mm hypodense focus within the posterior segment right hepatic lobe possible cyst versus hemangioma. Not definitively characterized. Splenic calcifications compatible with prior granulomatous disease., Phleboliths small fat-containing umbilical hernia no acute abdominal or pelvic abnormalities) Ordered Tests: Active Orders 24 hr Category Date Time Status IV Insertion STAT Care 04/21/22 00:56 Active ABDOMEN AND PELVIS W/0 CONTRAS [CT] Stat Exams 04/21/22 00:57 Taken CBC W DIFF Stat Lab 04/21/22 01:11 Completed CMP Stat Lab 04/21/22 01:11 Completed LIPASE Stat Lab 04/21/22 01:11 Completed TROPONIN Q3H Lab 04/21/22 01:11 Completed TROPONIN Q3H Lab 04/21/22 04:00 Ordered TROPONIN Q3H Lab 04/21/22 07:00 Ordered TROPONIN Q3H Lab 04/21/22 10:00 Ordered TROPONIN Q3H Lab 04/21/22 13:00 Ordered UA W/RFX CULTURE Stat Lab 04/21/22 03:19 Completed Medication Summary Discontinued Medications Generic Name Dose Route Start Last Admin Trade Name Mindy PRN Reason Stop Dose Admin Sodium Chloride 1,000 mls @ 999 mls/hr 04/21/22 00:56 04/21/22 01:13 Sodium Chloride 0.9% 1000 Ml IV 04/21/22 01:56 999 mls/hr .Q1H1M STA Administration Sodium Chloride Confirm 04/21/22 01:12 Sodium Chloride 0.9% 1000 Ml Administered 04/21/22 01:13 Dose 1,000 mls @ ud .ROUTE .STK-MED ONE Sodium Chloride 1,000 mls @ 999 mls/hr 04/21/22 02:21 04/21/22 02:31 Sodium Chloride 0.9% 1000 Ml IV 04/21/22 03:21 999 mls/hr .Q1H1M STA Administration Sodium Chloride Confirm 04/21/22 02:31 Sodium Chloride 0.9% 1000 Ml Administered 04/21/22 02:32 Dose 1,000 mls @ ud .ROUTE .STK-MED ONE Morphine Sulfate 2 mg 04/21/22 00:56 04/21/22 01:13 Morphine Sulfate 2 Mg/Ml Inj IV 04/21/22 00:57 2 mg STAT ONE Administration Morphine Sulfate Confirm 04/21/22 01:12 Morphine Sulfate 2 Mg/Ml Inj Administered 04/21/22 01:13 Dose 2 mg .ROUTE .STK-MED ONE Ondansetron HCl 4 mg 04/21/22 00:56 04/21/22 01:13 Ondansetron Hcl 4 Mg/2 Ml Vial IV 04/21/22 00:57 4 mg STAT ONE Administration Ondansetron HCl Confirm 04/21/22 01:11 Ondansetron Hcl 4 Mg/2 Ml Vial Administered 04/21/22 01:12 Dose 4 mg .ROUTE .STK-MED ONE Ondansetron HCl 4 mg 04/21/22 01:53 04/21/22 02:01 Ondansetron Hcl 4 Mg/2 Ml Vial IV 04/21/22 01:54 4 mg STAT ONE Administration Ondansetron HCl Confirm 04/21/22 02:00 Ondansetron Hcl 4 Mg/2 Ml Vial Administered 04/21/22 02:01 Dose 4 mg .ROUTE .[facility] ONE Prochlorperazine Edisylate 10 mg 04/21/22 02:37 04/21/22 02:42 Prochlorperazine Edisylate 10 Mg/2 Ml Vial IV 04/21/22 02:38 10 mg STAT ONE Administration Prochlorperazine Edisylate Confirm 04/21/22 02:40 Prochlorperazine Edisylate 10 Mg/2 Ml Vial Administered 04/21/22 02:41 Dose 10 mg .ROUTE .[facility] ONE Lab/Rad Data: Laboratory Result Diagrams 04/21/22 01:11 04/21/22 01:11 Laboratory Results 04/21/22 04/21/22 04/21/22 Range/Units 03:19 03:14 01:11 WBC (4.0-10.5) x10^3/uL RBC (4.1-5.4) x10^6/uL Hgb (12.0-16.0) g/dL Hct (35-47) % MCV (78-100) fL MCH (26-32) pg MCHC (32-36) g/dL RDW (11.5-14.0) % Plt Count (150-450) x10^3/uL MPV (7.5-11.0) fL Gran % (36.0-66.0) % Immature Gran % (Auto) (0.00-0.4) % Nucleat RBC Rel Count (0.00-0.1) % Eos # (Auto) (0-0.5) x10^3/uL Immature Gran # (Auto) (0.00-0.03) x10^3u/L Absolute Lymphs (auto) (1.0-4.6) x10^3/uL Absolute Monos (auto) (0.0-1.3) x10^3/uL Absolute Nucleated RBC (0.00-0.01) x10^3u/L Lymphocytes % (24.0-44.0) % Monocytes % (0.0-12.0) % Eosinophils % (0.00-5.0) % Basophils % (0.0-0.4) % Absolute Granulocytes (1.4-6.9) x10^3/uL Basophils # (0-0.4) x10^3/uL Sodium (137-145) mmol/L Potassium (3.5-5.1) mmol/L Chloride (98-107) mmol/L Carbon Dioxide (22-30) mmol/L Anion Gap (5-15) MEQ/L BUN (7-17) mg/dL Creatinine (0.52-1.04) mg/dL Estimated GFR ML/MIN Glucose (74-106) mg/dL Calcium (8.4-10.2) mg/dL Total Bilirubin (0.2-1.3) mg/dL AST (14-36) U/L ALT (0-35) U/L Alkaline Phosphatase (38-126) U/L Troponin I < 0.012 (0.000-0.034) ng/mL Serum Total Protein (6.3-8.2) g/dL Albumin (3.5-5.0) g/dL Lipase (23-300) U/L Urinalys Dipstick Clnc MAIN LAB Urine Color YELLOW (YELLOW) Urine Appearance SLIGHTLY CLOUDY (CLEAR) Urine pH 8.5 (5-6) Ur Specific [place] 1.020 (1.005-1.025) POC Urine Protein Conf NEGATIVE (Negative) Urine Ketones SMALL-15 (NEGATIVE) Urine Nitrite NEGATIVE (NEGATIVE) Urine Bilirubin NEGATIVE (NEGATIVE) Urine Urobilinogen 0.2 (0-1) mg/dL Urine Leukocytes NEGATIVE (NEGATIVE) Urine WBC (Auto) 0-2 (0-5) /HPF Urine RBC (Auto) 0-2 (0-2) /HPF U Epithel Cells (Auto) RARE (FEW) /HPF Urine Bacteria (Auto) RARE (NEGATIVE) /HPF Urine RBC TRACE-INTACT (0-5) Narendra/ul Amorphous Crystals FEW (NEGATIVE) /HPF Urine Mucus (Auto) SLIGHT (NEGATIVE) /HPF Ur Culture Indicated? NO Urine Glucose NEGATIVE (NEGATIVE) mg/dL Influenza Type A Ag NEGATIVE (NEGATIVE) Influenza Type B Ag NEGATIVE (NEGATIVE) RSV (PCR) NEGATIVE (Negative) SARS-CoV-2 (PCR) NEGATIVE (NEGATIVE) 04/21/22 04/21/22 Range/Units 01:11 01:11 WBC 15.3 H (4.0-10.5) x10^3/uL RBC 4.96 (4.1-5.4) x10^6/uL Hgb 13.8 (12.0-16.0) g/dL Hct 42.4 (35-47) % MCV 85.5 (78-100) fL MCH 27.8 (26-32) pg MCHC 32.5 (32-36) g/dL RDW 13.6 (11.5-14.0) % Plt Count 313 (150-450) x10^3/uL MPV 10.8 (7.5-11.0) fL Gran % 80.2 H (36.0-66.0) % Immature Gran % (Auto) 0.5 H (0.00-0.4) % Nucleat RBC Rel Count 0.0 (0.00-0.1) % Eos # (Auto) 0.03 (0-0.5) x10^3/uL Immature Gran # (Auto) 0.07 H (0.00-0.03) x10^3u/L Absolute Lymphs (auto) 1.43 (1.0-4.6) x10^3/uL Absolute Monos (auto) 1.47 H (0.0-1.3) x10^3/uL Absolute Nucleated RBC 0.00 (0.00-0.01) x10^3u/L Lymphocytes % 9.3 L (24.0-44.0) % Monocytes % 9.6 (0.0-12.0) % Eosinophils % 0.2 (0.00-5.0) % Basophils % 0.2 (0.0-0.4) % Absolute Granulocytes 12.31 H (1.4-6.9) x10^3/uL Basophils # 0.03 (0-0.4) x10^3/uL Sodium 133 L (137-145) mmol/L Potassium 3.8 (3.5-5.1) mmol/L Chloride 103 (98-107) mmol/L Carbon Dioxide 22 (22-30) mmol/L Anion Gap 12.0 (5-15) MEQ/L BUN 8 (7-17) mg/dL Creatinine 0.72 (0.52-1.04) mg/dL Estimated GFR > 60.0 ML/MIN Glucose 159 H (74-106) mg/dL Calcium 8.9 (8.4-10.2) mg/dL Total Bilirubin 0.60 (0.2-1.3) mg/dL AST 27 (14-36) U/L ALT 21 (0-35) U/L Alkaline Phosphatase 109 (38-126) U/L Troponin I (0.000-0.034) ng/mL Serum Total Protein 7.3 (6.3-8.2) g/dL Albumin 3.7 (3.5-5.0) g/dL Lipase 75 (23-300) U/L Urinalys Dipstick Clnc Urine Color (YELLOW) Urine Appearance (CLEAR) Urine pH (5-6) Ur Specific [place] (1.005-1.025) POC Urine Protein Conf (Negative) Urine Ketones (NEGATIVE) Urine Nitrite (NEGATIVE) Urine Bilirubin (NEGATIVE) Urine Urobilinogen (0-1) mg/dL Urine Leukocytes (NEGATIVE) Urine WBC (Auto) (0-5) /HPF Urine RBC (Auto) (0-2) /HPF U Epithel Cells (Auto) (FEW) /HPF Urine Bacteria (Auto) (NEGATIVE) /HPF Urine RBC (0-5) Narendra/ul Amorphous Crystals (NEGATIVE) /HPF Urine Mucus (Auto) (NEGATIVE) /HPF Ur Culture Indicated? Urine Glucose (NEGATIVE) mg/dL Influenza Type A Ag (NEGATIVE) Influenza Type B Ag (NEGATIVE) RSV (PCR) (Negative) SARS-CoV-2 (PCR) (NEGATIVE) - Progress Progress: improved Progress Note: Patient reassessed. Nausea improved but not resolved. Pain improved. Work-up reveals a leukocytosis of 15,000. Hyponatremia. Patient was tested for COVID. COVID result was negative. CT abdomen pelvis showed no acute abdominal or pelvic abnormalities. We will assess a p.o. challenge prior to discharge. 04/21/22 04:27 Counseled pt/family regarding: lab results, diagnosis, need for follow-up, rad results - Departure Departure Disposition: Home Clinical Impression: Leukocytosis, Nausea vomiting and diarrhea, Hyponatremia, Hepatic cyst, Granulomatous disease Condition: Stable Critical Care Time: No Referrals: DEVORA BARKER NP [Primary Care Provider] - Follow up/PCP as directed Instructions: Nausea and Vomiting, Adult (DC) Additional Instructions: Discharge/Care Plan CARL AGUILAR was seen on 04/21/22 in the Emergency Room. The patient was counseled regarding Diagnosis,Lab results, Imaging studies, need for follow up and when to return to the Emergency Room. Prescriptions given: Discharge Note I have spoken with the patient and/or caregivers. I have explained the patient's condition, diagnosis and treatment plan based on the information available to me at this time. I have answered the patient's and/or caregiver's questions and addressed any concerns. The patient and/or caregivers have as good understanding of the patient's diagnosis, condition and treatment plan as can be expected at this point. The vital signs have been stable. The patient's condition is stable and appropriate for discharge from the emergency department. The patient will pursue further outpatient evaluation with the primary care physician or other designated or consulting physician as outlined in the discharge instructions. The patient and/or caregivers are agreeable to this plan of care and follow-up instructions have been explained in detail. The patient and/or caregivers have received these instruction. The patient/and or caregivers are aware that any significant change in condition or worsening of symptoms should prompt an immediate return to this or the closest emergency department or call 911. Forms: Work/School Release Form Prescriptions: Ondansetron ODT 4 MG [Zofran Odt 4 mg] 4 mg PO Q6H PRN PRN #10 tablet PRN Reason: Vomiting
[2022-04-21] MEDS ORDERED: Zofran 4 MG/2 ML VIAL ONE ×2 (01:11→02:00)
[2022-04-21] MEDS ORDERED: Sodium Chloride 0.9% 1000 ML 1,000 ML ONE ×2 (01:12→02:31)
[2022-04-21] MEDS ORDERED: MORPHINE SULFATE 2 MG INJ ONE (01:12)
[2022-04-21 01:14] LABS: Absolute Neutrophil Ct (ANC) 12.31 x10^3/uL (1.4-6.9); Basophil (Absolute #) 0.03 x10^3/uL (0-0.4); Eosinophil % 0.2 % (0.00-5.0); Eosinophil (Absolute #) 0.03 x10^3/uL (0-0.5); Hematocrit 42.4 % (35-47); Hemoglobin 13.8 g/dL (12.0-16.0); Lymphocyte (Absolute #) 1.43 x10^3/uL (1.0-4.6); Lymphocytes % 9.3 % (24.0-44.0); Mean Cell Volume 85.5 fL (78-100); Mean Corpuscular Hemoglobin 27.8 pg (26-32); Mean Corpuscular Hgb Concent. 32.5 g/dL (32-36); Mean Platelet Volume 10.8 fL (7.5-11.0); Monocyte (Absolute #) 1.47 x10^3/uL (0.0-1.3); Monocytes % 9.6 % (0.0-12.0); Neutrophil % 80.2 % (36.0-66.0); Platelet Count 313 x10^3/uL (150-450); Red Blood Count 4.96 x10^6/uL (4.1-5.4); Red Cell Distribution Width 13.6 % (11.5-14.0); White Blood Count 15.3 x10^3/uL (4.0-10.5)
[2022-04-21 01:55] LABS: ALBUMIN 3.7 g/dL (3.5-5.0); ALKALINE PHOSPHATASE 109 U/L (38-126); BLOOD UREA NITROGEN 8 mg/dL (7-17); CHLORIDE 103 mmol/L (98-107); Calcium 8.9 mg/dL (8.4-10.2); Carbon Dioxide 22 mmol/L (22-30); Creatinine 1 0.72 mg/dL (0.52-1.04); EST GLOMERULAR FILTRATION RATE > 60.0 ML/MIN; Glucose 159 mg/dL (74-106); LIPASE 75 U/L (23-300); Potassium 3.8 mmol/L (3.5-5.1); SGOT/AST 27 U/L (14-36); SGPT/ALT 21 U/L (0-35); SODIUM 133 mmol/L (137-145); Total Protein 7.3 g/dL (6.3-8.2)
[2022-04-21 02:23] VITALS: O2SAT 98
[2022-04-21] MEDS ORDERED: Compazine 10 MG/2 ML IV ONE (02:37)
[2022-04-21] MEDS ORDERED: Compazine 10 MG/2 ML ONE (02:40)
[2022-04-21 03:27] LABS: Amourphous Crystal FEW /HPF (NEGATIVE); Appearance SLIGHTLY CLOUDY (CLEAR); Bacteria RARE /HPF (NEGATIVE); Bilirubin NEGATIVE (NEGATIVE); Dipstick done @ ? MAIN LAB; Epithelial Cells RARE /HPF (FEW); Glucose NEGATIVE (NEGATIVE); Ketones SMALL-15 (NEGATIVE); Mucus SLIGHT /HPF (NEGATIVE); Nitrite NEGATIVE (NEGATIVE); Ph 8.5 (5-6); Protein,Urine Dip NEGATIVE (Negative); RBC 0-2 /HPF (0-2); RBC TRACE-INTACT Ery/ul (0-5); Urobilinogen 0.2 mg/dL (0-1); WBC 0-2 /HPF (0-5)
[2022-04-21 03:28] LABS: Urine Cultured Indicated? NO
[2022-04-21 03:52] LABS: INFLUENZA A NEGATIVE (NEGATIVE); INFLUENZA B NEGATIVE (NEGATIVE); RESPIRATORY SYNCTIAL VIRUS NEGATIVE (Negative); SARS-CoV-2 Xpert Express NEGATIVE (NEGATIVE)
[2022-04-21 04:49] VITALS: BP 140/84; PULSE 90
--- NOTE | 2022-04-21 09:08 | XRAY ---
Indication: Abdomen pain, nausea, and vomiting. Multiple contiguous axial images obtained through the abdomen and pelvis without contrast. Comparison: None Lung bases clear. Heart not enlarged. Incidental partially visualized bilateral breast implants. Stomach is mildly fluid distended. Noncontrasted stomach and bowel loops appear nonobstructed with normal appendix. Bilateral tubal ligation clips. No free fluid/air. Inferior right lobe liver demonstrates 9 mm cyst versus hemangioma. Remaining liver, gallbladder, pancreas, spleen, adrenal glands, kidneys, ureters, bladder, uterus, and aorta are unremarkable for noncontrast exam. Osseous structures intact. No ventral or inguinal hernias. Impression: 1. Subcentimeter hepatic cyst versus hemangioma. 2. Remaining CT abdomen/pelvis without contrast exam is negative. Comment: Preliminary interpretation made by [facility]. No critical discrepancy.
== END 2022-04-21 04:45 | disposition home or self-care (01) ==
LOC: ED 00:25
DX: D72.829 Elevated white blood cell count, unspecified (principal); R11.2 Nausea with vomiting, unspecified; R19.7 Diarrhea, unspecified; E87.1 Hypo-osmolality and hyponatremia; K76.89 Other specified diseases of liver; D71 Functional disorders of polymorphonuclear neutrophils; R10.13 Epigastric pain; Z79.899 Other long term (current) drug therapy; Z28.310 Unvaccinated for COVID-19
CPT/HCPCS: 0241U; 36000; 36415; 74176; 80053; 81015; 83690; 84484; 85025; 96360; 96374; 96375; 99284; J2270; J2405

== ENCOUNTER 2022-07-20 13:06 | Emergency (ER) | payer OTHER ==
--- NOTE | 2022-07-20 13:42 | ERPHSYRPT ---
- History of Present Illness Time Seen by Provider: 07/20/22 13:37 Source: patient Exam Limitations: no limitations Patient Subjective Stated Complaint: Sore throat Triage Nursing Assessment: Patient ambulated back to ED and transferred self to bed. Patient A+OX 3. Patient's skin pink, warm and dry. Patient complains of sore throat, mouth pain, headache and blisters in mouth and throat. Patient seen in [facility] on Tuesday07/16/2022 and dx with hand foot and mouth and given IM steroid shot. Patient states blisters are worse in her mouth and throat. Patient complains of pain 07/19. Physician History: Patient is a 42-year-old white female presents with a complaint of sore throat. She was seen Tuesday at the [facility] and told she had [id number]-mouth without the presence of any hand or foot lesions. That was 5 days ago she still has extremely sore throat she is never developed lesions on the hands or feet and she questions the diagnosis. Timing/Duration: abrupt onset Severity: moderate ENT Location: throat Prearrival Treatment: no prearrival treatment Modifying Factors: Improves With: other (Swallowing is painful) Allergies/Adverse Reactions: acetaminophen [From Pamprin Max] Allergy (Verified 07/20/22 13:11) aspirin [From Pamprin Max] Allergy (Verified 07/20/22 13:11) caffeine [From Pamprin Max] Allergy (Verified 07/20/22 13:11) coconut oil Allergy (Verified 07/20/22 13:11) red (food color) Allergy (Verified 07/20/22 13:11) uracil mustard Allergy (Verified 07/20/22 13:11) Home Medications: ALPRAZolam 0.25 MG [xanAX 0.25 MG] 0.25 mg PO BID 11/10/20 [History] Amitriptyline HCl 25 mg [Amitriptyline 25 mg Tablet] 25 mg PO DAILY 11/10/20 [History] Famotidine [Pepcid] 20 mg PO BID 11/10/20 [History] Lurasidone HCl [Latuda] 40 mg PO HS 11/10/20 [History] Metoprolol Succinate [Toprol Xl] 25 mg PO DAILY 11/10/20 [History] Cetirizine HCl [Zyrtec] 5 mg PO DAILY 11/18/20 [History] Hx Tetanus, Diphtheria Vaccination/Date Given: Yes Hx Influenza Vaccination/Date Given: No Hx Pneumococcal Vaccination/Date Given: No Immunizations Up to Date: Yes Travel Risk - International Travel Have you traveled outside of the country in past 3 weeks: No - Coronavirus Screening Are you exhibiting any of the following symptoms?: No Close contact with a COVID-19 positive Pt in past 14-21 Days: No - Vaccine Status Have you recieved a Covid-19 vaccination: Yes Soccer Referee: Unknown - Vaccination Dates Dates if Unknown: na - Review of Systems Constitutional: No Fever, No Chills Eyes: No Symptoms Ears, Nose, & Throat: No Symptoms, Throat Pain Respiratory: No Cough, No Dyspnea Cardiac: No Chest Pain, No Edema, No Syncope Abdominal/Gastrointestinal: No Abdominal Pain, No Nausea, No Vomiting, No Diarr hea Genitourinary Symptoms: No Dysuria Musculoskeletal: No Back Pain, No Neck Pain Skin: No Rash Neurological: No Dizziness, No Focal Weakness, No Sensory Changes Psychological: No Symptoms Endocrine: No Symptoms All Other Systems: Reviewed and Negative - Past Medical History Pertinent Past Medical History: Yes Neurological History: No Pertinent History ENT History: No Pertinent History Cardiac History: Other Respiratory History: No Pertinent History Endocrine Medical History: No Pertinent History Musculoskeletal History: No Pertinent History GI Medical History: No Pertinent History History: No Pertinent History Psycho-Social History: Depression Female Reproductive Disorders: No Pertinent History Other Medical History: cardiomyopathy - Past Surgical History Past Surgical History: Yes Neuro Surgical History: No Pertinent History Cardiac: No Pertinent History Respiratory: No Pertinent History Gastrointestinal: Other Genitourinary: Other Musculoskeletal: No Pertinent History Female Surgical History: Section, Tubal Ligation Other Surgical History: breast augmentation, cystoscopy, kidney stone removal, ablasion - Social History Smoking Status: Never smoker Exposure to second hand smoke: No Drug Use: none Patient Lives Alone: No - Female History Hx Last Menstrual Period: ablation Hx Now: No - Nursing Vital Signs Nursing Vital Signs: Initial Vital Signs Temperature 98.1 F 07/20/22 13:14 Pulse Rate 110 H 07/20/22 13:14 Respiratory Rate 18 07/20/22 13:14 Blood Pressure 146/88 07/20/22 13:14 O2 Sat by Pulse Oximetry 96 07/20/22 13:14 Pain Scale Pain Intensity 10 - Physical Exam General Appearance: no apparent distress, mild distress, alert Eye Exam: bilateral eye: PERRL, EOMI Nasal Exam: normal inspection Throat Exam: moist mucus membranes, No pharynx normal (Examination of the oropharynx shows the soft palate to be covered with small white ulcers with surrounding erythema), No tonsillar exudate Neck Exam: supple Cardiovascular/Respiratory Exam: normal breath sounds, regular rate/rhythm Abdominal Exam: non-tender, soft Neurologic Exam: alert, 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, sensation nml, No motor deficits Skin Exam: normal color, warm, dry SpO2: 96 - Course Nursing assessment & vital signs reviewed: Yes - Progress Progress: unchanged - Departure Departure Disposition: Home Clinical Impression: Stomatitis Condition: Stable Critical Care Time: No Referrals: DEVORA BARKER REED REPAIRER [Primary Care Provider] - Follow up/PCP as directed Instructions: Mouth Sores (DC) Prescriptions: Valacyclovir HCl [Valtrex] 1,000 mg PO BID 7 Days #14 tablet
[2022-07-20 13:55] VITALS: BP 121/79; PULSE 99; O2SAT 98
== END 2022-07-20 13:55 | disposition home or self-care (01) ==
LOC: ED 13:06
DX: K12.1 Other forms of stomatitis (principal); J02.9 Acute pharyngitis, unspecified; Z79.899 Other long term (current) drug therapy
CPT/HCPCS: 99281

== ENCOUNTER 2022-08-03 10:48 | Day surgery (SDC) | payer OTHER ==
[~2022-08-03 10:48] MED LIST changes: +XYLOCAINE 1% HCL 20 ML MDV ONE
[2022-08-03] MEDS ORDERED: Lactated Ringers 1,000 ML IV SCH (11:00)
[2022-08-03] MEDS ORDERED: CEFAZOLIN 2 GM-D5W BAG** 2 GM/50 ML ML IV SCH (11:00)
[2022-08-03] MEDS ORDERED: CEFAZOLIN 2 GM-D5W BAG** 2 GM/50 ML ML IV ONE (11:32)
[2022-08-03] MEDS ORDERED: Lactated Ringers 1,000 ML IV ONE (11:32)
[2022-08-03] MEDS ORDERED: Versed 2 MG/2 ML Injection IV PRN (11:32)
[2022-08-03] MEDS ORDERED: Pepcid 20 MG VIAL IV ONE (12:33)
[2022-08-03] MEDS ORDERED: Transderm Scop 1.5MG Patch TOP PRN (12:33)
[2022-08-03] MEDS ORDERED: Reglan 10 MG/2 ML IV ONE (12:33)
[2022-08-03] MEDS ORDERED: DIPRIVAN 200 MG/20 ML IV ONE (12:46)
[2022-08-03] MEDS ORDERED: Xylocaine-Mpf 2% 5 Ml Vial ONE (12:47)
[2022-08-03] MEDS ORDERED: Decadron 4 MG INJ ONE (12:47)
[2022-08-03] MEDS ORDERED: Zofran 4 MG/2 ML VIAL ONE (12:47)
[2022-08-03] MEDS ORDERED: Quelicin Fliptop 200 MG/10 ML ONE (12:47)
[2022-08-03] MEDS ORDERED: SUBLIMAZE 100 MCG/2 ML ONE (12:53)
[2022-08-03] MEDS ORDERED: Pre-Attached Lta Kit TP ONE (12:57)
[2022-08-03 14:41] VITALS: PULSE 75
[2022-08-03 14:53] VITALS: BP 132/85; O2SAT 97
--- NOTE | 2022-08-04 10:34 | OP ---
SURGERY DATE/TIME: 08/03/2022 1306 PREOPERATIVE DIAGNOSES: 1) Soft tissue mass right foot. 2) Pain right foot. POSTOPERATIVE DIAGNOSES: 1) Soft tissue mass right foot. 2) Pain right foot. PROCEDURE: Excision of soft tissue mass/neoplasm of unknown origin right foot. SURGEON: Rajinder Claudio DPM. LEARNING COORDINATOR: None. ANESTHESIA: General. HEMOSTASIS: Ankle tourniquet set to 250 mm of Mercury for 14 total tourniquet minutes. ESTIMATED BLOOD LOSS: Less than 3 cc. MATERIALS: 4-0 Monocryl in intracuticular stitch-type fashion and Steri-Strips. INJECTABLES: 30 cc of 1:1 mixture of 1% lidocaine plain and 0.5% bupivacaine plain injected in a V block-type fashion surrounding the dorsal aspect of the foot. INDICATIONS FOR PROCEDURE: Charu is a very pleasant 42-year-old patient who presented to my service for concerns of pain over the dorsal aspect of her foot approximately four weeks ago. The patient indicates that the pain was significant and had been present for several months prior to. The patient indicates that she has been dealing with this pain for quite some time and has failed conservative therapy. The patient wishes to proceed with excision of soft tissue mass. MRI was obtained demonstrating no significant inflammatory component to the soft tissue mass. However expected differentials are likely a ganglion cyst or epidermal inclusion cyst. The patient understands all risks, complications and benefits of this procedure. Infection, hematoma, seroma, possibility of delayed skin healing, nonskin healing have been discussed. No guarantees were provided as to the outcome of surgical intervention. Plenty of time was allowed for the patient to ask questions which were answered to the patient's apparent satisfaction. It is with that we decided to proceed. DESCRIPTION OF PROCEDURE AND FINDINGS: The patient was brought into the OR and placed on the OR table in supine position. At this time a well-padded ankle tourniquet was applied to the right ankle and the tourniquet was set to 250 mm of Mercury. At this time the right foot was prepped and draped in the typical sterile fashion and lowered onto the surgical field. Attention was directed to the dorsal aspect of the foot where the soft tissue masses were palpated. Incision planning was made starting the difference between the two soft tissue masses. A curvilinear incision was made over the dorsal aspect of the foot measuring approximately 3 cm in length. The incision was deepened along the soft tissue plane being careful not to damage any neurovascular structures in this area. At this time the soft tissue mass was encountered and completely mobilized. Any of the soft tissue constricture and blood vessels were cauterized or tied off depending on the lumen size of the blood vessel. Following this, copious amounts of sterile saline were utilized to flush the surgical site. On the Rose stand, the measurement was taken and the soft tissue mass was measured to be approximately 1.7 x 0.6 cm. The two separate masses appeared to be one large mass with bridging of what appeared to be some scar tissue between the two masses, this was handed off the field at this time and sent for pathological assessment. Following this a closure consisting of 4-0 Monocryl in a simple intracuticular-type fashion was performed. The incision site was cleansed with iodine and Steri-Strips were applied across the top of the dorsal aspect of the foot. Following this, postoperative block was performed consisting of 30 cc of a 1:1 mixture of 1% lidocaine plain and 0.5% bupivacaine plain in a V block-type fashion. The patient was then reversed from anesthesia. Tourniquet was let down. Total of 14 minutes of total tourniquet time. The patient as then reversed from anesthesia and returned to the postoperative anesthesia care unit with vital signs stable and vascular status intact. The patient handled the anesthesia as well as the procedure without significant complication. Postoperative orders as indicated in the patient's discharge chart.
== END 2022-08-03 15:10 | disposition home or self-care (01) ==
LOC: SDC 10:48
PROVIDERS: ATTEND Podiatrist Foot & Ankle Surgery
DX: E65 Localized adiposity (principal); M79.671 Pain in right foot
CPT/HCPCS: 81025; J0330; J0690; J1100; J2250; J2405; J2704; J3010; A9270-GY

== ENCOUNTER 2022-10-15 08:51 | Emergency (ER) | payer OTHER ==
[2022-10-15] MEDS ORDERED: Hydromorphone 1 mg/ml Injection IV ONE (09:08)
[2022-10-15] MEDS ORDERED: Zofran 4 MG/2 ML VIAL IV ONE (09:08)
--- NOTE | 2022-10-15 09:08 | ERPHSYRPT ---
- History of Present Illness Time Seen by Provider: 10/15/22 09:05 Source: patient Exam Limitations: no limitations Patient Subjective Stated Complaint: Pt states "I am in so much pain. I hurt from the top of my head down to my toes." Triage Nursing Assessment: Pt presented alert and oriented X 3, skin pwd. Pt ambulates with an upright steady gait, able to speak in clear full sentences. Pt moaning and tearful. Physician History: This is a 42-year-old white female patient of nurse malcolm Manzanares who complains of generalized pain that is severe from head to toe. There is no area that is localized to. Patient has a history of depression, cardiomyopathy and hypertension. Patient was diagnosed in the past with immune system issues. The last time she saw her primary care provider, Lucía Manzanares nurse practitioner, was 3 weeks ago. Patient states that her pain actually started last night. Patient's primary care provider is not in the office today. Patient denies shortness of breath. She denies diarrhea. She denies vomiting. Timing/Duration: yesterday, worse Severity: moderate Associated Symptoms: other ("Has pain everywhere") Allergies/Adverse Reactions: acetaminophen [From Pamprin Max] Allergy (Verified 08/03/22 11:04) Hives aspirin [From Pamprin Max] Allergy (Verified 08/03/22 11:04) Hives caffeine [From Pamprin Max] Allergy (Verified 08/03/22 11:04) Hives coconut oil Allergy (Verified 08/03/22 11:04) Hives red (food color) Allergy (Verified 08/03/22 11:04) Hives uracil mustard Allergy (Verified 08/03/22 11:04) Hives Home Medications: Diltiazem HCl [Diltiazem 12Hr ER] 120 mg PO HS 07/23/22 [History] Ibuprofen 800 mg PO TID 07/23/22 [History] Rabeprazole Sodium 20 mg PO HS 07/23/22 [History] Testosterone 5 gm TD HS 07/23/22 [History] Lorazepam 0.5 mg [Ativan 0.5 MG] 0.5 mg PO BID 08/03/22 [History] Hx Tetanus, Diphtheria Vaccination/Date Given: Yes Hx Influenza Vaccination/Date Given: No Hx Pneumococcal Vaccination/Date Given: No Immunizations Up to Date: Yes Travel Risk - International Travel Have you traveled outside of the country in past 3 weeks: No - Coronavirus Screening Are you exhibiting any of the following symptoms?: No Close contact with a COVID-19 positive Pt in past 14-21 Days: No - Vaccine Status Have you recieved a Covid-19 vaccination: Yes Gas Adjuster: Unknown - Vaccination Dates Dates if Unknown: na - Review of Systems Constitutional: Other (Generalized pain) Eyes: No Symptoms Ears, Nose, & Throat: No Symptoms Respiratory: No Symptoms Cardiac: No Symptoms, Chest Pain Abdominal/Gastrointestinal: Abdominal Pain Genitourinary Symptoms: No Symptoms Musculoskeletal: Arthralgias, Myalgias Neurological: Headache Psychological: No Symptoms Endocrine: No Symptoms Hematologic/Lymphatic: No Symptoms Immunological/Allergic: No Symptoms All Other Systems: Reviewed and Negative - Past Medical History Pertinent Past Medical History: Yes Neurological History: No Pertinent History ENT History: No Pertinent History Cardiac History: Other Respiratory History: Sleep Apnea Endocrine Medical History: No Pertinent History Musculoskeletal History: No Pertinent History GI Medical History: No Pertinent History History: No Pertinent History Psycho-Social History: Anxiety, Depression Female Reproductive Disorders: No Pertinent History Other Medical History: cardiomyopathy, leaky valve - Past Surgical History Past Surgical History: Yes Neuro Surgical History: No Pertinent History Cardiac: No Pertinent History Respiratory: No Pertinent History Gastrointestinal: Other Genitourinary: Other Musculoskeletal: No Pertinent History Female Surgical History: Section, Tubal Ligation Other Surgical History: breast augmentation, cystoscopy, kidney stone removal, u terine ablation, - Social History Smoking Status: Never smoker Exposure to second hand smoke: No Drug Use: none Patient Lives Alone: No - Female History Hx Last Menstrual Period: ablasion Hx Now: No - Nursing Vital Signs Nursing Vital Signs: Initial Vital Signs Temperature 97.6 F 10/15/22 08:52 Pulse Rate 102 H 10/15/22 08:52 Respiratory Rate 20 10/15/22 08:52 Blood Pressure 143/93 10/15/22 08:52 O2 Sat by Pulse Oximetry 96 10/15/22 08:52 Pain Scale Pain Intensity 6 - Physical Exam General Appearance: mild distress, alert, anxiety Eye Exam: PERRL/EOMI, eyes nml inspection Ears, Nose, Throat Exam: normal ENT inspection, moist mucous membranes Neck Exam: normal inspection, non-tender, supple, full range of motion Respiratory Exam: normal breath sounds, lungs clear, airway intact, No chest tenderness, No respiratory distress Cardiovascular Exam: regular rate/rhythm, normal heart sounds, normal peripheral pulses Gastrointestinal/Abdomen Exam: soft, normal bowel sounds, tenderness (Generalized without rebound or guarding), No guarding, No rebound Pelvic Exam: not done Rectal Exam: not done Back Exam: normal inspection, normal range of motion, No CVA tenderness, No vertebral tenderness Extremity Exam: normal inspection, normal range of motion, pelvis stable Neurologic Exam: alert, 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, cooperative, make ready mechanic II-XII nml as tested, nor mal mood/affect, nml cerebellar function, nml station & gait, sensation nml Skin Exam: normal color, warm, dry Lymphatic Exam: No adenopathy SpO2 Interpretation: normal SpO2: 96 O2 Delivery: Room Air - Course Nursing assessment & vital signs reviewed: Yes Ordered Tests: Active Orders 24 hr Category Date Time Status IV Insertion STAT Care 10/15/22 09:08 Active AMYLASE Stat Lab 10/15/22 09:05 Completed CBC W DIFF Stat Lab 10/15/22 09:05 Completed CMP Stat Lab 10/15/22 09:05 Completed LIPASE Stat Lab 10/15/22 09:05 Completed Lactic Acid Stat Lab 10/15/22 09:19 Completed [place] Screen Stat Lab 10/15/22 09:05 Completed UA W/RFX UR CULTURE Stat Lab 10/15/22 10:29 Completed Medication Summary Discontinued Medications Generic Name Dose Route Start Last Admin Trade Name Freq PRN Reason Stop Dose Admin Hydromorphone HCl 1 mg 10/15/22 09:08 10/15/22 09:26 Hydromorphone 1 Mg/1ml Inj 1 Mg/Ml Syringe IV 10/15/22 09:09 1 mg STAT ONE Administration Hydromorphone HCl Confirm 10/15/22 09:21 Hydromorphone 1 Mg/1ml Inj 1 Mg/Ml Syringe Administered 10/15/22 09:22 Dose 1 mg .ROUTE .STK-MED ONE Sodium Chloride 1,000 mls @ 999 mls/hr 10/15/22 09:10 10/15/22 10:35 Sodium Chloride 0.9% 1000 Ml IV 10/15/22 10:10 Infused .Q1H1M STA Infusion Sodium Chloride Confirm 10/15/22 09:21 Sodium Chloride 0.9% 1000 Ml Administered 10/15/22 09:22 Dose 1,000 mls @ ud .ROUTE .[facility] ONE Ondansetron HCl 4 mg 10/15/22 09:08 10/15/22 09:26 Ondansetron Hcl 4 Mg/2 Ml Vial IV 10/15/22 09:09 4 mg STAT ONE Administration Ondansetron HCl Confirm 10/15/22 09:20 Ondansetron Hcl 4 Mg/2 Ml Vial Administered 10/15/22 09:21 Dose 4 mg .ROUTE .[facility] ONE Lab/Rad Data: Laboratory Result Diagrams 10/15/22 09:05 10/15/22 09:05 Laboratory Results 10/15/22 10/15/22 10/15/22 Range/Units 10:29 09:19 09:15 WBC (4.0-10.5) x10^3/uL RBC (4.1-5.4) x10^6/uL Hgb (12.0-16.0) g/dL Hct (35-47) % MCV (78-100) fL MCH (26-32) pg MCHC (32-36) g/dL RDW (11.5-14.0) % Plt Count (150-450) x10^3/uL MPV (7.5-11.0) fL Gran % (36.0-66.0) % Immature Gran % (Auto) (0.00-0.4) % Nucleat RBC Rel Count (0.00-0.1) % Eos # (Auto) (0-0.5) x10^3/uL Immature Gran # (Auto) (0.00-0.03) x10^3u/L Absolute Lymphs (auto) (1.0-4.6) x10^3/uL Absolute Monos (auto) (0.0-1.3) x10^3/uL Absolute Nucleated RBC (0.00-0.01) x10^3u/L Lymphocytes % (24.0-44.0) % Monocytes % (0.0-12.0) % Eosinophils % (0.00-5.0) % Basophils % (0.0-0.4) % Absolute Granulocytes (1.4-6.9) x10^3/uL Basophils # (0-0.4) x10^3/uL Sodium (137-145) mmol/L Potassium (3.5-5.1) mmol/L Chloride (98-107) mmol/L Carbon Dioxide (22-30) mmol/L Anion Gap (5-15) MEQ/L BUN (7-17) mg/dL Creatinine (0.52-1.04) mg/dL Estimated GFR ML/MIN Glucose (74-106) mg/dL Lactic Acid 1.0 (0.4-2.0) Calcium (8.4-10.2) mg/dL Total Bilirubin (0.2-1.3) mg/dL AST (14-36) U/L ALT (0-35) U/L Alkaline Phosphatase (38-126) U/L Serum Total Protein (6.3-8.2) g/dL Albumin (3.5-5.0) g/dL Amylase (30-110) U/L Lipase (23-300) U/L Urine Color Yellow (Yellow) Urine Appearance Clear (Clear) Urine pH 7.5 (4.6-8.0) Ur Specific [place] 1.015 (1.005-1.030) Urine Protein Negative (Negative) Urine Ketones 80 A (Negative) Urine Blood Negative (Negative) Urine Nitrite Negative (Negative) Urine Bilirubin Negative (Negative) Urine Urobilinogen 0.2 (0.2) mg/dL Ur Leukocyte Esterase Small A (Negative) U Hyaline Cast (Auto) 0-2 (0-2) /LPF Urine Microscopic RBC 0-2 (0-5) /HPF Urine Microscopic WBC 3-5 (0-5) /HPF Ur Epithelial Cells Few (None Seen) /HPF Urine Bacteria None Seen (None Seen) /HPF Urine Culture Reflexed NO (NO) Urine Glucose Negative (Negative) mg/dL Monoscreen (Negative) Influenza Type A Ag NEGATIVE (NEGATIVE) Influenza Type B Ag NEGATIVE (NEGATIVE) RSV (PCR) NEGATIVE (Negative) SARS-CoV-2 (PCR) NEGATIVE (NEGATIVE) 10/15/22 10/15/22 10/15/22 Range/Units 09:05 09:05 09:05 WBC 4.5 (4.0-10.5) x10^3/uL RBC 4.61 (4.1-5.4) x10^6/uL Hgb 13.3 (12.0-16.0) g/dL Hct 39.6 (35-47) % MCV 85.9 (78-100) fL MCH 28.9 (26-32) pg MCHC 33.6 (32-36) g/dL RDW 13.7 (11.5-14.0) % Plt Count 233 (150-450) x10^3/uL MPV 11.0 (7.5-11.0) fL Gran % 48.6 (36.0-66.0) % Immature Gran % (Auto) 0.2 (0.00-0.4) % Nucleat RBC Rel Count 0.0 (0.00-0.1) % Eos # (Auto) 0.08 (0-0.5) x10^3/uL Immature Gran # (Auto) 0.01 (0.00-0.03) x10^3u/L Absolute Lymphs (auto) 1.42 (1.0-4.6) x10^3/uL Absolute Monos (auto) 0.79 (0.0-1.3) x10^3/uL Absolute Nucleated RBC 0.00 (0.00-0.01) x10^3u/L Lymphocytes % 31.3 (24.0-44.0) % Monocytes % 17.4 H (0.0-12.0) % Eosinophils % 1.8 (0.00-5.0) % Basophils % 0.7 (0.0-0.4) % Absolute Granulocytes 2.21 (1.4-6.9) x10^3/uL Basophils # 0.03 (0-0.4) x10^3/uL Sodium 134 L (137-145) mmol/L Potassium 3.9 (3.5-5.1) mmol/L Chloride 106 (98-107) mmol/L Carbon Dioxide 23 (22-30) mmol/L Anion Gap 8.9 (5-15) MEQ/L BUN 8 (7-17) mg/dL Creatinine 0.57 (0.52-1.04) mg/dL Estimated GFR > 60.0 ML/MIN Glucose 88 (74-106) mg/dL Lactic Acid (0.4-2.0) Calcium 8.7 (8.4-10.2) mg/dL Total Bilirubin 0.50 (0.2-1.3) mg/dL AST 37 H (14-36) U/L ALT 27 (0-35) U/L Alkaline Phosphatase 68 (38-126) U/L Serum Total Protein 7.1 (6.3-8.2) g/dL Albumin 3.9 (3.5-5.0) g/dL Amylase 71 (30-110) U/L Lipase 92 (23-300) U/L Urine Color (Yellow) Urine Appearance (Clear) Urine pH (4.6-8.0) Ur Specific [place] (1.005-1.030) Urine Protein (Negative) Urine Ketones (Negative) Urine Blood (Negative) Urine Nitrite (Negative) Urine Bilirubin (Negative) Urine Urobilinogen (0.2) mg/dL Ur Leukocyte Esterase (Negative) U Hyaline Cast (Auto) (0-2) /LPF Urine Microscopic RBC (0-5) /HPF Urine Microscopic WBC (0-5) /HPF Ur Epithelial Cells (None Seen) /HPF Urine Bacteria (None Seen) /HPF Urine Culture Reflexed (NO) Urine Glucose (Negative) mg/dL Monoscreen NEGATIVE (Negative) Influenza Type A Ag (NEGATIVE) Influenza Type B Ag (NEGATIVE) RSV (PCR) (Negative) SARS-CoV-2 (PCR) (NEGATIVE) - Departure Departure Disposition: Home Clinical Impression: Generalized pain, Dehydration Condition: Stable Critical Care Time: No Referrals: DEVORA MANZANARES SCHOOL JANITOR [Primary Care Provider] - Follow up/PCP as directed Additional Instructions: Drink plenty of clear liquids every day. Take your medication as prescribed. 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 Call today to make those appointments. Prescriptions: Ondansetron ODT 4 MG [Zofran Odt 4 mg] 4 mg PO Q6H PRN PRN #10 tablet PRN Reason: Vomiting
[2022-10-15] MEDS ORDERED: Sodium Chloride 0.9% 1000 ML 1,000 ML IV STA (09:10)
[2022-10-15] MEDS ORDERED: Zofran 4 MG/2 ML VIAL ONE (09:20)
[2022-10-15] MEDS ORDERED: Sodium Chloride 0.9% 1000 ML 1,000 ML ONE (09:21)
[2022-10-15] MEDS ORDERED: Hydromorphone 1 mg/ml Injection ONE (09:21)
[2022-10-15 09:23] LABS: Absolute Neutrophil Ct (ANC) 2.21 x10^3/uL (1.4-6.9); Basophil (Absolute #) 0.03 x10^3/uL (0-0.4); Eosinophil % 1.8 % (0.00-5.0); Eosinophil (Absolute #) 0.08 x10^3/uL (0-0.5); Hematocrit 39.6 % (35-47); Hemoglobin 13.3 g/dL (12.0-16.0); Lymphocyte (Absolute #) 1.42 x10^3/uL (1.0-4.6); Lymphocytes % 31.3 % (24.0-44.0); Mean Cell Volume 85.9 fL (78-100); Mean Corpuscular Hemoglobin 28.9 pg (26-32); Mean Corpuscular Hgb Concent. 33.6 g/dL (32-36); Monocyte (Absolute #) 0.79 x10^3/uL (0.0-1.3); Monocytes % 17.4 % (0.0-12.0); Neutrophil % 48.6 % (36.0-66.0); Platelet Count 233 x10^3/uL (150-450); Red Blood Count 4.61 x10^6/uL (4.1-5.4); Red Cell Distribution Width 13.7 % (11.5-14.0); White Blood Count 4.5 x10^3/uL (4.0-10.5)
[2022-10-15 09:33] LABS: ALBUMIN 3.9 g/dL (3.5-5.0); ALKALINE PHOSPHATASE 68 U/L (38-126); AMYLASE 71 U/L (30-110); ANION GAP 8.9 MEQ/L (5-15); BLOOD UREA NITROGEN 8 mg/dL (7-17); CHLORIDE 106 mmol/L (98-107); Calcium 8.7 mg/dL (8.4-10.2); Carbon Dioxide 23 mmol/L (22-30); Creatinine 1 0.57 mg/dL (0.52-1.04); EST GLOMERULAR FILTRATION RATE > 60.0 ML/MIN; Glucose 88 mg/dL (74-106); LIPASE 92 U/L (23-300); Potassium 3.9 mmol/L (3.5-5.1); SGOT/AST 37 U/L (14-36); SGPT/ALT 27 U/L (0-35); SODIUM 134 mmol/L (137-145); Total Protein 7.1 g/dL (6.3-8.2)
[2022-10-15 09:57] LABS: INFLUENZA A NEGATIVE (NEGATIVE); INFLUENZA B NEGATIVE (NEGATIVE); RESPIRATORY SYNCTIAL VIRUS NEGATIVE (Negative); SARS-CoV-2 Xpert Express NEGATIVE (NEGATIVE)
[2022-10-15 10:58] LABS: Appearance Clear (Clear); Bacteria None Seen /HPF (None Seen); Bilirubin Negative (Negative); Blood Negative (Negative); Epithelial Cells Few /HPF (None Seen); Glucose Negative (Negative); Hyaline Casts 0-2 /LPF (0-2); Ketones 80 (Negative); Leukocyte Esterase Small (Negative); Nitrite Negative (Negative); Ph 7.5 (4.6-8.0); Protein,Urine Dip Negative (Negative); RBC 0-2 /HPF (0-5); Specific Gravity 1.015 (1.005-1.030); Urobilinogen 0.2 mg/dL (0.2)
[2022-10-15 10:59] LABS: ADD URINE CULTURE? NO (NO)
[2022-10-15 11:29] VITALS: BP 110/68; PULSE 73
[2022-10-15 11:35] VITALS: O2SAT 96
== END 2022-10-15 11:46 | disposition home or self-care (01) ==
LOC: ED 08:51
DX: R52 Pain, unspecified (principal); E86.0 Dehydration; I10 Essential (primary) hypertension; Z79.899 Other long term (current) drug therapy
CPT/HCPCS: 0241U; 36415; 80053; 81001; 82150; 83605; 83690; 85025; 86308; 96360; 96374; 99284; J1170; J2405

== ENCOUNTER 2022-12-24 10:45 | Emergency (ER) | payer OTHER ==
[2022-12-24] MEDS ORDERED: Sodium Chloride 0.9% 1000 ML 1,000 ML IV STA (11:20)
[2022-12-24] MEDS ORDERED: Zofran 4 MG/2 ML VIAL IV ONE (11:20)
[2022-12-24] MEDS ORDERED: ANTIVERT 25 MG PO ONE (11:20)
[2022-12-24 11:41] LABS: Absolute Neutrophil Ct (ANC) 3.02 x10^3/uL (1.4-6.9); BASOPHIL % 0.6 % (0.0-0.4); Basophil (Absolute #) 0.03 x10^3/uL (0-0.4); Eosinophil % 1.1 % (0.00-5.0); Eosinophil (Absolute #) 0.06 x10^3/uL (0-0.5); Hematocrit 40.3 % (35-47); Hemoglobin 12.8 g/dL (12.0-16.0); IMMATURE GRAN # 0.01 x10^3u/L (0.00-0.03); IMMATURE GRAN % 0.2 % (0.00-0.4); Lymphocyte (Absolute #) 1.62 x10^3/uL (1.0-4.6); Lymphocytes % 30.3 % (24.0-44.0); Mean Cell Volume 87.8 fL (78-100); Mean Corpuscular Hemoglobin 27.9 pg (26-32); Mean Corpuscular Hgb Concent. 31.8 g/dL (32-36); Mean Platelet Volume 10.8 fL (7.5-11.0); Monocyte (Absolute #) 0.61 x10^3/uL (0.0-1.3); Monocytes % 11.4 % (0.0-12.0); Neutrophil % 56.4 % (36.0-66.0); Platelet Count 228 x10^3/uL (150-450); Red Blood Count 4.59 x10^6/uL (4.1-5.4); Red Cell Distribution Width 13.5 % (11.5-14.0); White Blood Count 5.4 x10^3/uL (4.0-10.5)
[2022-12-24] MEDS ORDERED: Zofran 4 MG/2 ML VIAL ONE (11:41)
[2022-12-24] MEDS ORDERED: Sodium Chloride 0.9% 1000 ML 1,000 ML ONE (11:41)
[2022-12-24] MEDS ORDERED: ANTIVERT 25 MG ONE (11:41)
[2022-12-24 11:46] LABS: Appearance Clear (Clear); Bacteria None Seen /HPF (None Seen); Bilirubin Negative (Negative); Blood Negative (Negative); Epithelial Cells None Seen /HPF (None Seen); Glucose, Urine Negative (Negative); Hyaline Casts NONE SEEN /LPF (0-2); Ketones Negative (Negative); Leukocyte Esterase Negative (Negative); Nitrite Negative (Negative); Ph 5.5 (4.6-8.0); Protein,Urine Dip Negative (Negative); RBC 0-2 /HPF (0-5); Specific Gravity <=1.005 (1.005-1.030); Urobilinogen 0.2 mg/dL (0.2); WBC 0-2 /HPF (0-5)
[2022-12-24 11:47] LABS: ADD URINE CULTURE? NO (NO)
[2022-12-24 11:56] LABS: BLOOD UREA NITROGEN 10 mg/dL (7-17); CHLORIDE 102 mmol/L (98-107); Calcium 9.2 mg/dL (8.4-10.2); Carbon Dioxide 31 mmol/L (22-30); Creatinine 1 0.72 mg/dL (0.52-1.04); EST GLOMERULAR FILTRATION RATE > 60.0 ML/MIN; Glucose 94 mg/dL (74-106); Potassium 3.6 mmol/L (3.5-5.1)
[2022-12-24 11:58] LABS: SODIUM 139 mmol/L (137-145)
--- NOTE | 2022-12-24 11:58 | XRAY ---
Indication: Nausea, dizziness, double vision. Multiple contiguous axial images obtained through the head without contrast. Comparison: None Normal appearing brain parenchyma, ventricles, and bony calvarium. Visualized paranasal sinuses and mastoid air cells are clear. Impression: Normal CT head without contrast exam.
[2022-12-24 12:00] LABS: ANION GAP 9.6 MEQ/L (5-15)
--- NOTE | 2022-12-24 13:27 | ERPHSYRPT ---
- History of Present Illness Source: patient Exam Limitations: no limitations Patient Subjective Stated Complaint: pt here for dizziness today with headache , nausea and vomited x1. runny nose Triage Nursing Assessment: pt alert, resp easy,face mask in place, skin w/d/p, a bd soft , moves all ext well Prior Episodes: single episode today, remote history Timing/Duration: today, yesterday Precipitating Factors: none Context: sitting Loss of Consciousness: no loss of consciousness Hx Tetanus, Diphtheria Vaccination/Date Given: Yes Hx Influenza Vaccination/Date Given: No Hx Pneumococcal Vaccination/Date Given: No Immunizations Up to Date: Yes <LISA MOFFETT - Last Filed: 12/24/22 13:32> <ELISSA LÓPEZ - Last Filed: 12/24/22 14:10> - History of Present Illness Time Seen by Provider: 12/24/22 10:55 Physician History: This a 42-year-old patient with known history of, alcohol use, cardiomyopathy, hypertension on medication presenting to the ED with dizziness. -That the dizziness came on suddenly, thinks that she is been, some blurry vision, mild headache, is like she is on fire". -That she has been having postnasal drainage for the past few days along with a runny nose. -Denies any fever/chest pain -This chronic abdominal pain from celiac disease -That she has seen Dr. Meneses for flutters, has had a recent echo a month ago which was within normal limits -LMP- has had ablation done (LISA MOFFETT) Allergies/Adverse Reactions: acetaminophen [From Pamprin Max] Allergy (Verified 12/24/22 11:23) Hives aspirin [From Pamprin Max] Allergy (Verified 12/24/22 11:23) Hives caffeine [From Pamprin Max] Allergy (Verified 12/24/22 11:23) Hives coconut oil Allergy (Verified 12/24/22 11:23) Hives red (food color) Allergy (Verified 12/24/22 11:23) Hives uracil mustard Allergy (Verified 12/24/22 11:23) Hives Home Medications: Diltiazem HCl [Diltiazem 12Hr ER] 120 mg PO HS 07/23/22 [History] Testosterone 5 gm TD HS 07/23/22 [History] Lorazepam 0.5 mg [Ativan 0.5 MG] 0.5 mg PO BID 08/03/22 [History] Gabapentin [Neurontin ] 300 mg PO TID 12/24/22 [History] Trazodone HCl 50 mg [Desyrel 50 mg] 50 mg PO STAT 12/24/22 [History] terbinafine HCL [Terbinafine HCl] 250 mg PO DAILY 12/24/22 [History] Travel Risk - International Travel Have you traveled outside of the country in past 3 weeks: No - Coronavirus Screening Are you exhibiting any of the following symptoms?: No Close contact with a COVID-19 positive Pt in past 14-21 Days: No - Vaccine Status Have you recieved a Covid-19 vaccination: Yes Food And Beverage Order Clerk: Unknown - Vaccination Dates Dates if Unknown: na <LISA MOFFETT - Last Filed: 12/24/22 13:32> - Past Medical History Pertinent Past Medical History: Yes Neurological History: No Pertinent History ENT History: No Pertinent History Cardiac History: Other Respiratory History: Sleep Apnea Endocrine Medical History: No Pertinent History Musculoskeletal History: No Pertinent History GI Medical History: No Pertinent History History: No Pertinent History Psycho-Social History: Anxiety, Depression Female Reproductive Disorders: No Pertinent History Other Medical History: cardiomyopathy, leaky valve - Past Surgical History Past Surgical History: Yes Neuro Surgical History: No Pertinent History Cardiac: No Pertinent History Respiratory: No Pertinent History Gastrointestinal: Other Genitourinary: Other Musculoskeletal: No Pertinent History Female Surgical History: Section, Tubal Ligation Other Surgical History: breast augmentation, cystoscopy, kidney stone removal, uterine ablation, - Social History Smoking Status: Never smoker Exposure to second hand smoke: No Drug Use: none Patient Lives Alone: No - Female History Hx Last Menstrual Period: post Hx Now: No <LISA MOFFETT - Last Filed: 12/24/22 13:32> - Review of Systems Constitutional: No Symptoms Eyes: No Symptoms Ears, Nose, & Throat: No Symptoms, Nose Congestion, Sinus Drainage Respiratory: No Symptoms Cardiac: No Symptoms Abdominal/Gastrointestinal: No Symptoms, Abdominal Pain (chronic) Genitourinary Symptoms: No Symptoms Musculoskeletal: No Symptoms Skin: No Symptoms Neurological: No Symptoms All Other Systems: Reviewed and Negative <LISA MOFFETT - Last Filed: 12/24/22 13:32> Physical Exam - Carlo Coma Scale Best Eye Response ([place]): (4) open spontaneously Best Verbal Response (Carlo): (5) oriented Best Motor Response (Carlo): (6) obeys commands [place] Total: 15 - Physical Exam General Appearance: no apparent distress Eye Exam: bilateral eye: normal inspection, PERRL, EOMI Ears, Nose, Throat Exam: normal ENT inspection, TMs normal, pharynx normal Neck Exam: normal inspection, supple, full range of motion, No non-tender Respiratory: normal breath sounds, lungs clear, No chest tenderness, No respiratory distress, No accessory muscle use Cardiovascular: regular rate/rhythm, normal heart sounds, normal peripheral pulses Gastrointestinal: soft, normal bowel sounds Pelvic Exam: not done Rectal Exam: deferred Back Exam: normal inspection Extremity Exam: normal inspection, normal range of motion Peripheral Pulses: carotid (R): 4+, carotid (L): 4+, femoral (R): 4+, femoral (L): 4+, dorsalis-pedis (R): 4+, dorsalis-pedis (L): 4+ Mental Status: alert, 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, 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 Exam: normal hearing, normal speech, PERRL Coordination/Gait: normal gait, normal cerebellar function Motor/Sensory: no motor deficit DTR: bicep (R): 4+, bicep (L): 4+, tricep (R): 4+, tricep (L): 4+, knee (R): 4+, knee (L): 4+, ankle (R): 4+, ankle (L): 4+ Skin Exam: normal color SpO2: 97 <LISA MOFFETT - Last Filed: 12/24/22 13:32> - Nursing Vital Signs Nursing Vital Signs: Initial Vital Signs Pulse Rate 74 12/24/22 11:06 Respiratory Rate 18 12/24/22 11:06 Blood Pressure 113/75 12/24/22 11:06 O2 Sat by Pulse Oximetry 98 12/24/22 11:06 Pain Scale Pain Intensity 4 Ordered Tests: Active Orders 24 hr Category Date Time Status IV Insertion STAT Care 12/24/22 11:20 Active POCT Glucose Check STAT Care 12/24/22 11:20 Active HEAD WITHOUT CONTRAST [CT] Stat Exams 12/24/22 11:21 Completed Alcohol [ETHYL ALCOHOL] Stat Lab 12/24/22 11:30 Completed BMP Stat Lab 12/24/22 11:18 Completed CBC W DIFF Stat Lab 12/24/22 11:18 Completed CK (IN-HOUSE) [CK-Creatinine Phosphokinase] Stat Lab 12/24/22 11:27 Completed POCT GLUCOSE Stat Lab 12/24/22 11:52 Completed TROPONIN Q4H Lab 12/24/22 11:30 Completed TROPONIN Q4H Lab 12/24/22 15:30 Ordered TROPONIN Q4H Lab 12/24/22 19:30 Ordered TROPONIN Q4H Lab 12/24/22 23:30 Ordered UA W/RFX UR CULTURE Stat Lab 12/24/22 11:38 Completed Medication Summary Discontinued Medications Generic Name Dose Route Start Last Admin Trade Name Freq PRN Reason Stop Dose Admin Sodium Chloride 1,000 mls @ 999 mls/hr 12/24/22 11:20 12/24/22 13:17 Sodium Chloride 0.9% 1000 Ml IV 12/24/22 12:20 Infused .Q1H1M STA Infusion Sodium Chloride Confirm 12/24/22 11:41 Sodium Chloride 0.9% 1000 Ml Administered 12/24/22 11:42 Dose 1,000 mls @ ud .ROUTE .STK-MED ONE Meclizine HCl 25 mg 12/24/22 11:20 12/24/22 11:45 Meclizine Hcl 25 Mg Tablet PO 12/24/22 11:21 25 mg STAT ONE Administration Meclizine HCl Confirm 12/24/22 11:41 Meclizine Hcl 25 Mg Tablet Administered 12/24/22 11:42 Dose 25 mg .ROUTE .STK-MED ONE Ondansetron HCl 4 mg 12/24/22 11:20 12/24/22 11:45 Ondansetron Hcl 4 Mg/2 Ml Vial IV 12/24/22 11:21 4 mg STAT ONE Administration Ondansetron HCl Confirm 12/24/22 11:41 Ondansetron Hcl 4 Mg/2 Ml Vial Administered 12/24/22 11:42 Dose 4 mg .ROUTE .STK-MED ONE Lab/Rad Data: Laboratory Result Diagrams 12/24/22 11:18 12/24/22 11:18 Laboratory Results 03/17/23 03/17/23 03/17/23 Range/Units 11:52 11:38 11:30 WBC (4.0-10.5) x10^3/uL RBC (4.1-5.4) x10^6/uL Hgb (12.0-16.0) g/dL Hct (35-47) % MCV (78-100) fL MCH (26-32) pg MCHC (32-36) g/dL RDW (11.5-14.0) % Plt Count (150-450) x10^3/uL MPV (7.5-11.0) fL Gran % (36.0-66.0) % Immature Gran % (Auto) (0.00-0.4) % Nucleat RBC Rel Count (0.00-0.1) % Eos # (Auto) (0-0.5) x10^3/uL Immature Gran # (Auto) (0.00-0.03) x10^3u/L Absolute Lymphs (auto) (1.0-4.6) x10^3/uL Absolute Monos (auto) (0.0-1.3) x10^3/uL Absolute Nucleated RBC (0.00-0.01) x10^3u/L Lymphocytes % (24.0-44.0) % Monocytes % (0.0-12.0) % Eosinophils % (0.00-5.0) % Basophils % (0.0-0.4) % Absolute Granulocytes (1.4-6.9) x10^3/uL Basophils # (0-0.4) x10^3/uL Sodium (137-145) mmol/L Potassium (3.5-5.1) mmol/L Chloride (98-107) mmol/L Carbon Dioxide (22-30) mmol/L Anion Gap (5-15) MEQ/L BUN (7-17) mg/dL Creatinine (0.52-1.04) mg/dL Estimated GFR ML/MIN Glucose (74-106) mg/dL POC Glucometer 86 (74 to 106) mg/dL Calcium (8.4-10.2) mg/dL Creatine Kinase (30-135) U/L Troponin I < 0.012 (0.000-0.034) ng/mL Urine Color Yellow (Yellow) Urine Appearance Clear (Clear) Urine pH 5.5 (4.6-8.0) Ur Specific Indian <=1.005 (1.005-1.030) Urine Protein Negative (Negative) Urine Glucose (UA) Negative (Negative) mg/dL Urine Ketones Negative (Negative) Urine Blood Negative (Negative) Urine Nitrite Negative (Negative) Urine Bilirubin Negative (Negative) Urine Urobilinogen 0.2 (0.2) mg/dL Ur Leukocyte Esterase Negative (Negative) U Hyaline Cast (Auto) NONE SEEN (0-2) /LPF Urine Microscopic RBC 0-2 (0-5) /HPF Urine Microscopic WBC 0-2 (0-5) /HPF Ur Epithelial Cells None Seen (None Seen) /HPF Urine Bacteria None Seen (None Seen) /HPF Urine Culture Reflexed NO (NO) Ethyl Alcohol (0-10) mg/dL 12/24/22 12/24/22 12/24/22 Range/Units 11:30 11:27 11:18 WBC (4.0-10.5) x10^3/uL RBC (4.1-5.4) x10^6/uL Hgb (12.0-16.0) g/dL Hct (35-47) % MCV (78-100) fL MCH (26-32) pg MCHC (32-36) g/dL RDW (11.5-14.0) % Plt Count (150-450) x10^3/uL MPV (7.5-11.0) fL Gran % (36.0-66.0) % Immature Gran % (Auto) (0.00-0.4) % Nucleat RBC Rel Count (0.00-0.1) % Eos # (Auto) (0-0.5) x10^3/uL Immature Gran # (Auto) (0.00-0.03) x10^3u/L Absolute Lymphs (auto) (1.0-4.6) x10^3/uL Absolute Monos (auto) (0.0-1.3) x10^3/uL Absolute Nucleated RBC (0.00-0.01) x10^3u/L Lymphocytes % (24.0-44.0) % Monocytes % (0.0-12.0) % Eosinophils % (0.00-5.0) % Basophils % (0.0-0.4) % Absolute Granulocytes (1.4-6.9) x10^3/uL Basophils # (0-0.4) x10^3/uL Sodium 139 (137-145) mmol/L Potassium 3.6 (3.5-5.1) mmol/L Chloride 102 (98-107) mmol/L Carbon Dioxide 31 H (22-30) mmol/L Anion Gap 9.6 (5-15) MEQ/L BUN 10 (7-17) mg/dL Creatinine 0.72 (0.52-1.04) mg/dL Estimated GFR > 60.0 ML/MIN Glucose 94 (74-106) mg/dL POC Glucometer (74 to 106) mg/dL Calcium 9.2 (8.4-10.2) mg/dL Creatine Kinase 57 (30-135) U/L Troponin I (0.000-0.034) ng/mL Urine Color (Yellow) Urine Appearance (Clear) Urine pH (4.6-8.0) Ur Specific Indian (1.005-1.030) Urine Protein (Negative) Urine Glucose (UA) (Negative) mg/dL Urine Ketones (Negative) Urine Blood (Negative) Urine Nitrite (Negative) Urine Bilirubin (Negative) Urine Urobilinogen (0.2) mg/dL Ur Leukocyte Esterase (Negative) U Hyaline Cast (Auto) (0-2) /LPF Urine Microscopic RBC (0-5) /HPF Urine Microscopic WBC (0-5) /HPF Ur Epithelial Cells (None Seen) /HPF Urine Bacteria (None Seen) /HPF Urine Culture Reflexed (NO) Ethyl Alcohol < 10 (0-10) mg/dL 12/24/22 Range/Units 11:18 WBC 5.4 (4.0-10.5) x10^3/uL RBC 4.59 (4.1-5.4) x10^6/uL Hgb 12.8 (12.0-16.0) g/dL Hct 40.3 (35-47) % MCV 87.8 (78-100) fL MCH 27.9 (26-32) pg MCHC 31.8 L (32-36) g/dL RDW 13.5 (11.5-14.0) % Plt Count 228 (150-450) x10^3/uL MPV 10.8 (7.5-11.0) fL Gran % 56.4 (36.0-66.0) % Immature Gran % (Auto) 0.2 (0.00-0.4) % Nucleat RBC Rel Count 0.0 (0.00-0.1) % Eos # (Auto) 0.06 (0-0.5) x10^3/uL Immature Gran # (Auto) 0.01 (0.00-0.03) x10^3u/L Absolute Lymphs (auto) 1.62 (1.0-4.6) x10^3/uL Absolute Monos (auto) 0.61 (0.0-1.3) x10^3/uL Absolute Nucleated RBC 0.00 (0.00-0.01) x10^3u/L Lymphocytes % 30.3 (24.0-44.0) % Monocytes % 11.4 (0.0-12.0) % Eosinophils % 1.1 (0.00-5.0) % Basophils % 0.6 (0.0-0.4) % Absolute Granulocytes 3.02 (1.4-6.9) x10^3/uL Basophils # 0.03 (0-0.4) x10^3/uL Sodium (137-145) mmol/L Potassium (3.5-5.1) mmol/L Chloride (98-107) mmol/L Carbon Dioxide (22-30) mmol/L Anion Gap (5-15) MEQ/L BUN (7-17) mg/dL Creatinine (0.52-1.04) mg/dL Estimated GFR ML/MIN Glucose (74-106) mg/dL POC Glucometer (74 to 106) mg/dL Calcium (8.4-10.2) mg/dL Creatine Kinase (30-135) U/L Troponin I (0.000-0.034) ng/mL Urine Color (Yellow) Urine Appearance (Clear) Urine pH (4.6-8.0) Ur Specific Indian (1.005-1.030) Urine Protein (Negative) Urine Glucose (UA) (Negative) mg/dL Urine Ketones (Negative) Urine Blood (Negative) Urine Nitrite (Negative) Urine Bilirubin (Negative) Urine Urobilinogen (0.2) mg/dL Ur Leukocyte Esterase (Negative) U Hyaline Cast (Auto) (0-2) /LPF Urine Microscopic RBC (0-5) /HPF Urine Microscopic WBC (0-5) /HPF Ur Epithelial Cells (None Seen) /HPF Urine Bacteria (None Seen) /HPF Urine Culture Reflexed (NO) Ethyl Alcohol (0-10) mg/dL - Progress Discussed with DrFranklyn: Nataliya <SUSANLISA MOROCHO - Last Filed: 12/24/22 13:32> - Progress Counseled pt/family regarding: lab results, diagnosis, need for follow-up, rad results <ELISSA LÓPEZ - Last Filed: 12/24/22 14:10> - Progress Progress Note: 12/24/22 13:27 Pt. was given dose of meclizine Head Ct as independently reviewed by me shows no acute intracranial abnormality Crae handed over to at shift change ([facility]) Patient sxs improved after treatment. CT head, EKG, Troponin, cbc, cmp, UA, UDS neg. Will send home w/ Meclizine and f/u w/ PCP. 12/24/22 14:07 (ELISSA ÓLPEZ) Medical Desision Making - Risk of complications The pt has a mod risk of morbidity or mortality based on: Need for prescription drug management <ELISSA LÓPEZ - Last Filed: 12/24/22 14:10> <LISA MOFFETT - Last Filed: 12/24/22 13:32> - Departure Departure Disposition: Home Critical Care Time: No <ELISSA LÓPEZ - Last Filed: 12/24/22 14:10> - Departure Clinical Impression: Benign paroxysmal positional vertigo Condition: Good Referrals: DEVORA BARKER NP [Primary Care Provider] - Follow up/PCP as directed Instructions: Vertigo (a Type of Dizziness) (DC) Prescriptions: Meclizine HCl 25 mg [Antivert 25 mg] 25 mg PO DAILY 30 Days #30 tablet
[2022-12-24 14:10] VITALS: BP 111/76; PULSE 71; O2SAT 98
== END 2022-12-24 14:23 | disposition home or self-care (01) ==
LOC: ED 10:45
DX: H81.10 Benign paroxysmal vertigo, unspecified ear (principal); R51.9 Headache, unspecified; I10 Essential (primary) hypertension; Z79.899 Other long term (current) drug therapy
CPT/HCPCS: 36000; 36415; 70450; 80048; 81001; 82077; 82550; 82947; 84484; 85025; 96374; 99284; J2405; A9270-GY

== ENCOUNTER 2023-02-27 14:54 | Emergency (ER) | payer OTHER ==
--- NOTE | 2023-02-27 16:52 | ERPHSYRPT ---
- History of Present Illness Time Seen by Provider: 02/27/23 16:29 Source: patient Exam Limitations: no limitations Patient Subjective Stated Complaint: Pt reports she tested positive for influenza b on 02/21/23. Since 02/24/23 she has had sore throat and hurts to swallow. [facility]. Triage Nursing Assessment: Pt alert and oriented x3. No apparent respiratory distress. Ambulated to ED cot without difficulty. White patches to upper palate, tonsils, and tongue. Physician History: 43 years old female presented in the ER with chief complaint of sore throat for almost 1 week. She was tested positive for influenza and later on started to have sore throat, complaining of moderate intensity sharp pain, gets worse with swallowing. No fever or chills reported. Does have generalized body aches. Timing/Duration: gradual onset, days Severity: moderate ENT Location: throat Prearrival Treatment: over the counter meds Associated Symptoms: nasal congestion/drainage, poor solids intake, swollen glands, sore throat Allergies/Adverse Reactions: acetaminophen [From Pamprin Max] Allergy (Verified 02/27/23 16:34) Hives aspirin [From Pamprin Max] Allergy (Verified 02/27/23 16:34) Hives coconut oil Allergy (Verified 02/27/23 16:34) Hives red (food color) Allergy (Verified 02/27/23 16:34) Hives uracil mustard Allergy (Verified 02/27/23 16:34) Hives Home Medications: Diltiazem HCl [Diltiazem 12Hr ER] 120 mg PO HS 07/23/22 [History] Testosterone 5 gm TD HS 07/23/22 [History] Lorazepam 0.5 mg [Ativan 0.5 MG] 0.5 mg PO BID 08/03/22 [History] Gabapentin [Neurontin ] 300 mg PO TID 12/24/22 [History] Trazodone HCl 50 mg [Desyrel 50 mg] 50 mg PO STAT 12/24/22 [History] terbinafine HCL [Terbinafine HCl] 250 mg PO DAILY 12/24/22 [History] Hx Tetanus, Diphtheria Vaccination/Date Given: (unknown) Hx Influenza Vaccination/Date Given: No Hx Pneumococcal Vaccination/Date Given: No Travel Risk - International Travel Have you traveled outside of the country in past 3 weeks: No - Coronavirus Screening Are you exhibiting any of the following symptoms?: No Close contact with a COVID-19 positive Pt in past 14-21 Days: No - Vaccine Status Have you recieved a Covid-19 vaccination: Yes Inside Steward/Stewardess: Unknown - Vaccination Dates Dates if Unknown: na - Review of Systems Constitutional: No Symptoms Eyes: No Symptoms Ears, Nose, & Throat: Nose Congestion, Throat Pain Respiratory: No Symptoms Cardiac: No Symptoms Abdominal/Gastrointestinal: No Symptoms Genitourinary Symptoms: No Symptoms Musculoskeletal: No Symptoms Psychological: No Symptoms Hematologic/Lymphatic: No Symptoms - Past Medical History Pertinent Past Medical History: Yes Neurological History: No Pertinent History ENT History: No Pertinent History Cardiac History: Other Respiratory History: Sleep Apnea Endocrine Medical History: No Pertinent History Musculoskeletal History: No Pertinent History GI Medical History: No Pertinent History History: No Pertinent History Psycho-Social History: Anxiety, Depression Female Reproductive Disorders: No Pertinent History Other Medical History: cardiomyopathy, leaky valve - Past Surgical History Past Surgical History: Yes Neuro Surgical History: No Pertinent History Cardiac: No Pertinent History Respiratory: No Pertinent History Gastrointestinal: Other Genitourinary: Other Musculoskeletal: No Pertinent History Female Surgical History: Section, Tubal Ligation Other Surgical History: breast augmentation, cystoscopy, kidney stone removal, uterine ablation, - Social History Smoking Status: Never smoker Exposure to second hand smoke: No Drug Use: none Patient Lives Alone: No - Female History Hx Last Menstrual Period: 2020 Hx Now: No - Nursing Vital Signs Nursing Vital Signs: Initial Vital Signs Temperature 97.1 F 02/27/23 16:27 Pulse Rate 75 02/27/23 16:27 Respiratory Rate 16 02/27/23 16:27 Blood Pressure 127/72 02/27/23 16:27 O2 Sat by Pulse Oximetry 99 02/27/23 16:27 Pain Scale Pain Intensity 8 - Physical Exam General Appearance: no apparent distress, alert Eye Exam: bilateral eye: normal inspection, PERRL, EOMI Ear Exam: bilateral ear: auricle normal, canal normal, TM normal Nasal Exam: normal inspection Throat Exam: moist mucus membranes, pharynx swelling, pharynx tenderness Neck Exam: normal inspection, non-tender, supple, full range of motion, lymphadenopathy (R), lymphadenopathy (L) Cardiovascular/Respiratory Exam: normal breath sounds, regular rate/rhythm Neurologic Exam: alert, 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, cooperative, orange grower II-XII nml as tested Skin Exam: normal color SpO2 Interpretation: normal SpO2: 99 O2 Delivery: Room Air Ordered Tests: Medication Summary Discontinued Medications Generic Name Dose Route Start Last Admin Trade Name Mindy PRN Reason Stop Dose Admin Triamcinolone Acetonide 40 mg 02/27/23 17:02 02/27/23 17:30 Triamcinolone Acetonide 40 Mg/Ml Ml IM 02/27/23 17:03 40 mg 1XONLY ONE Administration Triamcinolone Acetonide Confirm 02/27/23 17:27 Triamcinolone Acetonide 40 Mg/Ml Ml Administered 02/27/23 17:28 Dose 40 mg .ROUTE .STK-MED ONE Lab/Rad Data: Laboratory Results 02/27/23 Range/Units 16:36 Influenza Type A Ag NEGATIVE (NEGATIVE) Influenza Type B Ag NEGATIVE (NEGATIVE) RSV (PCR) NEGATIVE (NEGATIVE) SARS-CoV-2 (PCR) NEGATIVE (NEGATIVE) Group A Strep Antibody NEGATIVE (NEGATIVE) - Progress Progress: improved Progress Note: 02/27/23 18:08 43 years old female presented in the ER with chief complaint of sore throat for almost 1 week. She was tested positive for influenza and later on started to have sore throat, complaining of moderate intensity sharp pain, gets worse with swallowing. No fever or chills reported. Does have generalized body aches. Patient has negative strep flu RSV and COVID. I believe she has viral pharyngitis, given a shot of Kenalog and continue with prednisone to go home. Discussed signs symptoms of worsening needing return to ER which she seems understanding. Stable for discharge. Counseled pt/family regarding: lab results, diagnosis, need for follow-up Medical Desision Making - Risk of complications The pt has a mod risk of morbidity or mortality based on: Need for prescription drug management - Departure Departure Disposition: Home Clinical Impression: Acute pharyngitis Condition: Stable Critical Care Time: No Referrals: DEVORA BARKER NP [Primary Care Provider] - Follow Up with PCP/3 days Instructions: Viral Pharyngitis (DC) Additional Instructions: Take Tylenol/ibuprofen as needed. Follow-up with primary care for reevaluation. Return to ER for any worsening. Prescriptions: Prednisone 20 mg [Deltasone 20 mg] 40 mg PO DAILY 5 Days #10 tablet
[2023-02-27] MEDS ORDERED: Kenalog-40 IM ONE (17:02)
[2023-02-27] MEDS ORDERED: Kenalog-40 ONE (17:27)
[2023-02-27 17:49] LABS: INFLUENZA A NEGATIVE (NEGATIVE); INFLUENZA B NEGATIVE (NEGATIVE); RESPIRATORY SYNCTIAL VIRUS NEGATIVE (NEGATIVE); SARS-CoV-2 Xpert Express NEGATIVE (NEGATIVE)
[2023-02-27 18:07] LABS: Group A Strep NEGATIVE (NEGATIVE)
[2023-02-27 18:39] VITALS: BP 120/83; PULSE 67; O2SAT 92
== END 2023-02-27 18:44 | disposition home or self-care (01) ==
LOC: ED 14:54
DX: J02.9 Acute pharyngitis, unspecified (principal); M79.10 Myalgia, unspecified site; Z79.52 Long term (current) use of systemic steroids; Z79.899 Other long term (current) drug therapy
CPT/HCPCS: 0241U; 87651; 96372; 99283; J3301

== ENCOUNTER 2023-06-27 17:26 | Emergency (ER) | payer OTHER ==
[2023-06-27] MEDS ORDERED: XYLOCAINE 1% HCL 20 ML MDV IJ ONE (17:27)
--- NOTE | 2023-06-27 17:36 | ERPHSYRPT ---
- History of Present Illness Time Seen by Provider: 06/27/23 17:35 Source: patient Exam Limitations: no limitations Physician History: This a 43-year-old white female patient who has had a sore throat for a week. She was diagnosed with viral illness approximately 1 week ago and was given a prescription for prednisone. Her last dose she took yesterday. She was not placed on any antibiotics. Her sore throat has persisted. She is having difficulty swallowing because of the pain in the back of her throat. Timing/Duration: week(s), worse (1) Cough Quality/Degree: no cough Possible Cause: occasional episodes Modifying Factors: Improves With: other (Swallowing makes it worse) Associated Symptoms: sore throat Allergies/Adverse Reactions: acetaminophen [From Pamprin Max] Allergy (Verified 06/27/23 18:06) Hives aspirin [From Pamprin Max] Allergy (Verified 06/27/23 18:06) Hives coconut oil Allergy (Verified 06/27/23 18:06) Hives red (food color) Allergy (Verified 06/27/23 18:06) Hives uracil mustard Allergy (Verified 06/27/23 18:06) Hives Home Medications: Diltiazem HCl [Diltiazem 12Hr ER] 120 mg PO HS 07/23/22 [History] Testosterone 5 gm TD HS 07/23/22 [History] Lorazepam 0.5 mg [Ativan 0.5 MG] 0.5 mg PO BID 08/03/22 [History] Trazodone HCl 50 mg [Desyrel 50 mg] 50 mg PO STAT 12/24/22 [History] terbinafine HCL [Terbinafine HCl] 250 mg PO DAILY 12/24/22 [History] Hx Tetanus, Diphtheria Vaccination/Date Given: (unknown) Hx Influenza Vaccination/Date Given: No Hx Pneumococcal Vaccination/Date Given: No Travel Risk - Coronavirus Screening Are you exhibiting any of the following symptoms?: Yes Symptoms: Cough: New Onset Close contact with a COVID-19 positive Pt in past 14-21 Days: No - Vaccine Status Have you recieved a Covid-19 vaccination: Yes 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 - Vaccination Dates Dates if Unknown: na - Review of Systems Constitutional: No Symptoms Eyes: No Symptoms Ears, Nose, & Throat: Throat Pain Respiratory: No Symptoms Cardiac: No Symptoms Abdominal/Gastrointestinal: No Symptoms Genitourinary Symptoms: No Symptoms Musculoskeletal: No Symptoms Skin: No Symptoms Neurological: No Symptoms Psychological: No Symptoms Endocrine: No Symptoms Hematologic/Lymphatic: No Symptoms Immunological/Allergic: No Symptoms All Other Systems: Reviewed and Negative - Past Medical History Pertinent Past Medical History: Yes Neurological History: No Pertinent History ENT History: No Pertinent History Cardiac History: Other Respiratory History: Sleep Apnea Endocrine Medical History: No Pertinent History Musculoskeletal History: No Pertinent History GI Medical History: No Pertinent History History: No Pertinent History Psycho-Social History: Anxiety, Depression Female Reproductive Disorders: No Pertinent History Other Medical History: cardiomyopathy, leaky valve - Past Surgical History Past Surgical History: Yes Neuro Surgical History: No Pertinent History Cardiac: No Pertinent History Respiratory: No Pertinent History Gastrointestinal: Other Genitourinary: Other Musculoskeletal: No Pertinent History Female Surgical History: Section, Tubal Ligation Other Surgical History: breast augmentation, cystoscopy, kidney stone removal, uterine ablation, - Social History Smoking Status: Never smoker Exposure to second hand smoke: No Drug Use: none Patient Lives Alone: No - Nursing Vital Signs Nursing Vital Signs: Initial Vital Signs Temperature 98.7 F 06/27/23 18:09 Pulse Rate 89 06/27/23 18:09 Respiratory Rate 18 06/27/23 18:09 Blood Pressure 124/81 06/27/23 18:09 O2 Sat by Pulse Oximetry 94 L 06/27/23 18:09 Pain Scale Pain Intensity 7 - Physical Exam General Appearance: no apparent distress, alert, anxiety Eye Exam: PERRL/EOMI, eyes nml inspection Ears, Nose, Throat Exam: moist mucous membranes, pharyngeal erythema (And pharyngeal fibrinous exudate) Neck Exam: normal inspection, non-tender, supple, full range of motion Respiratory Exam: normal breath sounds, lungs clear, airway intact, No chest tenderness, No respiratory distress Cardiovascular Exam: regular rate/rhythm, normal heart sounds, normal peripheral pulses Gastrointestinal/Abdomen Exam: soft, normal bowel sounds, No tenderness Pelvic Exam: not done Rectal Exam: not done Back Exam: normal inspection, normal range of motion, No CVA tenderness, No vertebral tenderness Extremity Exam: normal inspection, normal range of motion, pelvis stable Neurologic Exam: alert, 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, cooperative, hedis specialist II-XII nml as tested, normal mood/affect, nml cerebellar function, nml station & gait, sensation nml Skin Exam: normal color, warm, dry Lymphatic Exam: No adenopathy SpO2 Interpretation: normal O2 Delivery: Room Air - Course Nursing assessment & vital signs reviewed: Yes Ordered Tests: Medication Summary Discontinued Medications Generic Name Dose Route Start Last Admin Trade Name Mindy PRN Reason Stop Dose Admin Ceftriaxone Sodium 1,000 mg 06/27/23 18:47 06/27/23 19:12 Ceftriaxone Sodium 1000 Mg Inj Vial IM 06/27/23 18:48 1,000 mg STAT ONE Administration Ceftriaxone Sodium Confirm 06/27/23 19:08 Ceftriaxone Sodium 1000 Mg Inj Vial Administered 06/27/23 19:09 Dose 1,000 mg .ROUTE .STK-MED ONE Methylprednisolone Sodium 0 mg 06/27/23 18:48 06/27/23 19:12 Succinate 125 mg/ Sterile IM 06/27/23 18:49 125 mg Water 2 ml STAT ONE Administration Methylprednisolone Sodium Succinate Confirm 06/27/23 19:08 Methylprednis Sod Succ 125 Mg/2 Ml Vial Administered 06/27/23 19:09 Dose 125 mg .ROUTE .STK-MED ONE Sterile Water Confirm 06/27/23 19:08 Water For Injection,Sterile 10 Ml Vial Administered 06/27/23 19:09 Dose 10 ml IJ .STK-MED ONE Lab/Rad Data: Laboratory Results 06/27/23 06/27/23 Range/Units 17:45 17:45 Influenza Type A Ag NEGATIVE (NEGATIVE) Influenza Type B Ag NEGATIVE (NEGATIVE) RSV (PCR) NEGATIVE (NEGATIVE) SARS-CoV-2 (PCR) NEGATIVE (NEGATIVE) Group A Strep Antibody NOT DETECTED (NEGATIVE) - Progress Progress: improved, re-examined Air Movement: good Progress Note: 06/27/23 18:51 This patient's medical issue is 1 of low complexity. The level complex in the work-up performed is based on review of the patient's past medical history, review the patient's medication list, review of the patient's drug allergy list, history of present illness and physical findings on examination. The work-up in this patient includes viral swabs and group A strep test. Blood Culture(s) Obtained: No Antibiotics given: Yes Counseled pt/family regarding: lab results, diagnosis, need for follow-up Medical Desision Making - Diagnostic Testing Diagnostic test were ordered, analyzed, and reviewed by me: Yes - Risk of complications The pt has a mod risk of morbidity or mortality based on: Need for prescription drug management - Departure Departure Disposition: Home Clinical Impression: Pharyngitis, Inflammatory exudate Condition: Stable Critical Care Time: No Referrals: DEVORA BARKER NP [Primary Care Provider] - Follow up/PCP as directed Additional Instructions: Drink plenty of fluids. Take your antibiotics as prescribed. Take your prednisone as prescribed. Make sure that the cough medicine you have been prescribed does not have red dye in it. Make sure you do not take your cough/note medication within 3 hours of either your lorazepam or trazodone. Follow-up with your primary care provider for further evaluation management. Prescriptions: Prednisone 10 mg [Deltasone 10 mg] 10 mg PO TID #12 tablet Promethazine W Codeine Syr [Phenergan with Codeine Syrup] 5 ml PO Q6H PRN #80 ml MDD 20 ml PRN Reason: Moderate Pain Azithromycin 250 mg [Zithromax 250 MG TABLET] 250 mg PO ZPACK #6 tablet
[2023-06-27 18:10] VITALS: RESP 18; TEMP 98.7
[2023-06-27 18:31] LABS: INFLUENZA A NEGATIVE (NEGATIVE); INFLUENZA B NEGATIVE (NEGATIVE); RESPIRATORY SYNCTIAL VIRUS NEGATIVE (NEGATIVE); SARS-CoV-2 Xpert Express NEGATIVE (NEGATIVE)
[2023-06-27] MEDS ORDERED: Rocephin 1000 MG INJ IM ONE (18:47)
[2023-06-27] MEDS ORDERED: solu-MEDROL 125 MG, Sterile H2O 10 ml 2 ML IM ONE ×2 (18:48)
[2023-06-27] MEDS ORDERED: Sterile H2O 10 ml IJ ONE (19:08)
[2023-06-27] MEDS ORDERED: solu-MEDROL ONE (19:08)
[2023-06-27] MEDS ORDERED: Rocephin 1000 MG INJ ONE (19:08)
[2023-06-27 19:54] VITALS: BP 133/91; PULSE 86; O2SAT 98
== END 2023-06-27 20:02 | disposition home or self-care (01) ==
LOC: ED 17:26
DX: J02.9 Acute pharyngitis, unspecified (principal); Z79.52 Long term (current) use of systemic steroids; Z79.891 Long term (current) use of opiate analgesic; Z79.899 Other long term (current) drug therapy
CPT/HCPCS: 0241U; 87651; 96372; 99283; J0696; J2930

== ENCOUNTER 2023-09-01 13:08 | Emergency (ER) | payer OTHER ==
[2023-09-01 13:19] VITALS: TEMP 97.8
[2023-09-01] MEDS ORDERED: Augmentin 875-125 Tablet PO ONE (13:40)
--- NOTE | 2023-09-01 13:44 | ERPHSYRPT ---
- History of Present Illness Time Seen by Provider: 09/01/23 13:11 Source: patient Exam Limitations: no limitations Patient Subjective Stated Complaint: Pt c/o of left ear ache since yesterday Triage Nursing Assessment: Pt brought self to the ER, hypotensive, rates pain as 7/10 to the left ear and head, denies draining, denies any other issues Physician History: 43 years old female presented to the ER with chief complaint of heaviness in the left ear for the last couple of days and dull aching to sharp pain since yesterday moderate intensity without any ear discharge. Does have mild cough but no other URI symptoms. No fever or chills reported. No tenderness with movements of pinna. External canals bilateral normal. TM red on the left and mild erythematous on the right. No mastoid tenderness. Started on Augmentin, recommended Tylenol/ibuprofen for symptomatic relief and outpatient follow-up. Discussed signs symptoms of worsening needing return to ER which she seems understanding. Stable for discharge Allergies/Adverse Reactions: acetaminophen [From Pamprin Max] Allergy (Verified 09/01/23 13:20) Hives aspirin [From Pamprin Max] Allergy (Verified 09/01/23 13:20) Hives coconut oil Allergy (Verified 09/01/23 13:20) Hives red (food color) Allergy (Verified 09/01/23 13:20) Hives uracil mustard Allergy (Verified 09/01/23 13:20) Hives Home Medications: Diltiazem HCl [Diltiazem 12Hr ER] 120 mg PO HS 07/23/22 [History] Testosterone 5 gm TD HS 07/23/22 [History] Lorazepam 0.5 mg [Ativan 0.5 MG] 0.5 mg PO BID 08/03/22 [History] Trazodone HCl 50 mg [Desyrel 50 mg] 50 mg PO HS 12/24/22 [History] Adalimumab [Humira(Cf) Pen] 40 mg SQ UD 09/01/23 [History] Escitalopram Oxalate [Lexapro] 10 mg PO DAILY 09/01/23 [History] Gabapentin [Neurontin] 800 mg PO BID 09/01/23 [History] Lorazepam 1 mg [Ativan 1 MG] 1 mg PO BID 09/01/23 [History] Losartan Potassium 12.5 mg PO DAILY 09/01/23 [History] Lurasidone HCl [Latuda] 60 mg PO DAILY 09/01/23 [History] Rabeprazole Sodium 20 mg PO DAILY 09/01/23 [History] Hx Tetanus, Diphtheria Vaccination/Date Given: (unknown) Hx Influenza Vaccination/Date Given: No Hx Pneumococcal Vaccination/Date Given: No Travel Risk - International Travel Have you traveled outside of the country in past 3 weeks: No - Coronavirus Screening Are you exhibiting any of the following symptoms?: No Close contact with a COVID-19 positive Pt in past 14-21 Days: No - Vaccine Status Have you recieved a Covid-19 vaccination: Yes 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 - Vaccination Dates Dates if Unknown: na - Review of Systems Constitutional: No Symptoms Eyes: No Symptoms Ears, Nose, & Throat: Ear Pain, No Ear Discharge, No Hearing Changes Respiratory: Cough Cardiac: No Symptoms Abdominal/Gastrointestinal: No Symptoms Neurological: No Symptoms Hematologic/Lymphatic: No Symptoms - Past Medical History Pertinent Past Medical History: Yes Neurological History: No Pertinent History ENT History: No Pertinent History Cardiac History: Other Respiratory History: Sleep Apnea Endocrine Medical History: No Pertinent History Musculoskeletal History: No Pertinent History GI Medical History: No Pertinent History History: No Pertinent History Psycho-Social History: Anxiety, Depression Female Reproductive Disorders: No Pertinent History Other Medical History: cardiomyopathy, leaky valve - Past Surgical History Past Surgical History: Yes Neuro Surgical History: No Pertinent History Cardiac: No Pertinent History Respiratory: No Pertinent History Gastrointestinal: Other Genitourinary: Other Musculoskeletal: No Pertinent History Female Surgical History: Section, Tubal Ligation Other Surgical History: breast augmentation, cystoscopy, kidney stone removal, uterine ablation, - Social History Smoking Status: Never smoker Exposure to second hand smoke: No Drug Use: none Patient Lives Alone: Yes - Female History Hx Now: No (tubal and ablasion) - Nursing Vital Signs Nursing Vital Signs: Initial Vital Signs Temperature 97.8 F 09/01/23 13:13 Pulse Rate 91 H 09/01/23 13:13 Blood Pressure 94/64 09/01/23 13:13 O2 Sat by Pulse Oximetry 96 09/01/23 13:13 Pain Scale Pain Intensity 7 - Physical Exam General Appearance: no apparent distress Eye Exam: bilateral eye: normal inspection, PERRL, EOMI Ear Exam: right ear: erythema, left ear: TM dull, bilateral ear: auricle normal, canal normal Nasal Exam: normal inspection Throat Exam: normal, pharynx normal Neck Exam: normal inspection, non-tender, supple, full range of motion Cardiovascular/Respiratory Exam: normal breath sounds, regular rate/rhythm Neurologic Exam: alert, 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, spirits model II-XII nml as tested Skin Exam: normal color SpO2 Interpretation: normal SpO2: 96 O2 Delivery: Room Air - Progress Progress: unchanged Counseled pt/family regarding: diagnosis, need for follow-up Medical Desision Making - Risk of complications The pt has a mod risk of morbidity or mortality based on: Need for prescription drug management - Departure Departure Disposition: Home Clinical Impression: Otitis media Condition: Stable Critical Care Time: No Referrals: DEVORA BARKER NP [Primary Care Provider] - Follow up with PCP 2 days Instructions: Ear Infections in Adults (DC) Additional Instructions: Take Tylenol/ibuprofen as needed for symptomatic relief. Continue with antibiotics. Follow-up with primary care for reevaluation. Return to ER for any worsening. Prescriptions: Amox Tr/Potass Clav. 875 mg [Augmentin 875-125 Tablet] 875 mg PO BID #20 tablet
[2023-09-01] MEDS ORDERED: Augmentin 875-125 Tablet ONE (13:55)
[2023-09-01 14:03] VITALS: BP 101/66; PULSE 84; RESP 16; O2SAT 98
== END 2023-09-01 14:03 | disposition home or self-care (01) ==
LOC: ED 13:08
DX: H66.90 Otitis media, unspecified, unspecified ear (principal); H92.02 Otalgia, left ear; Z79.899 Other long term (current) drug therapy
CPT/HCPCS: 99281; A9270-GY

== ENCOUNTER 2023-09-06 18:18 | Emergency (ER) | payer OTHER ==
[2023-09-06 18:26] VITALS: TEMP 98.2
[2023-09-06 19:19] LABS: Absolute Neutrophil Ct (ANC) 2.57 x10^3/uL (1.4-6.9); BASOPHIL % 0.6 % (0.0-0.4); Basophil (Absolute #) 0.04 x10^3/uL (0-0.4); Eosinophil % 2.2 % (0.00-5.0); Eosinophil (Absolute #) 0.14 x10^3/uL (0-0.5); Hematocrit 41.1 % (35-47); Hemoglobin 13.2 g/dL (12.0-16.0); IMMATURE GRAN # 0.01 x10^3u/L (0.00-0.03); IMMATURE GRAN % 0.2 % (0.00-0.4); Lymphocyte (Absolute #) 2.68 x10^3/uL (1.0-4.6); Lymphocytes % 42.5 % (24.0-44.0); Mean Cell Volume 84.9 fL (78-100); Mean Corpuscular Hemoglobin 27.3 pg (26-32); Mean Corpuscular Hgb Concent. 32.1 g/dL (32-36); Mean Platelet Volume 10.5 fL (7.5-11.0); Monocyte (Absolute #) 0.87 x10^3/uL (0.0-1.3); Monocytes % 13.8 % (0.0-12.0); Neutrophil % 40.7 % (36.0-66.0); Platelet Count 249 x10^3/uL (150-450); Red Blood Count 4.84 x10^6/uL (4.1-5.4); Red Cell Distribution Width 13.1 % (11.5-14.0); White Blood Count 6.3 x10^3/uL (4.0-10.5)
[2023-09-06 19:31] LABS: ALBUMIN 3.6 g/dL (3.5-5.0); ANION GAP 7.9 MEQ/L (5-15); BILIRUBIN,TOTAL 0.2 mg/dL (0.2-1.3); Calcium 9.2 mg/dL (8.4-10.2); Creatinine 1 0.94 mg/dL (0.52-1.04); EST GLOMERULAR FILTRATION RATE 77.2 ML/MIN; Potassium 3.6 mmol/L (3.5-5.1); Total Protein 6.5 g/dL (6.3-8.2)
[2023-09-06 19:38] LABS: HCG SERUM TEST NEGATIVE (NEGATIVE)
[2023-09-06 19:48] VITALS: RESP 18
[2023-09-06 19:52] LABS: ACETAMINOPHEN < 10 ug/ml (10-30); ETHYL ALCOHOL < 10 mg/dL (0-10); SALICYLATE < 1.0 mg/dL (2-20)
[2023-09-06 19:56] LABS: Appearance Clear (Clear); Bacteria None Seen /HPF (None Seen); Bilirubin Negative (Negative); Blood Negative (Negative); Epithelial Cells None Seen /HPF (None Seen); Glucose, Urine Negative (Negative); Hyaline Casts NONE SEEN /LPF (0-2); Ketones Negative (Negative); Leukocyte Esterase Negative (Negative); Nitrite Negative (Negative); Protein,Urine Dip Negative (Negative); RBC 0-2 /HPF (0-5); Specific Gravity <=1.005 (1.005-1.030); Urobilinogen 0.2 mg/dL (0.2); WBC 0-2 /HPF (0-5)
[2023-09-06 20:01] LABS: ADD URINE CULTURE? NO (NO)
[2023-09-06 20:05] LABS: Amphetamine,Urine NEGATIVE (NEGATIVE); Barbiturate,Urine NEGATIVE (NEGATIVE); Cocaine,Urine NEGATIVE (NEGATIVE); Methadone,Urine NEGATIVE (NEGATIVE); Opiate,Urine NEGATIVE (NEGATIVE); PCP,Urine NEGATIVE (NEGATIVE); THC,Urine NEGATIVE (NEGATIVE)
[2023-09-06] MEDS ORDERED: TYLENOL EXTRA STRENGTH 500 MG PO STA (20:08)
[2023-09-06] MEDS ORDERED: TYLENOL EXTRA STRENGTH 500 MG ONE (20:10)
[2023-09-06 20:13] LABS: Benzodiazepine,Urine NEGATIVE (NEGATIVE)
--- NOTE | 2023-09-06 20:23 | ERPHSYRPT ---
- History of Present Illness Time Seen by Provider: 09/06/23 18:20 Source: patient Exam Limitations: no limitations Patient Subjective Stated Complaint: Pt states "I want to hurt myself by taking a bunch of pills." Triage Nursing Assessment: Pt presented to ed escorted by , officer jaja. PD stated pt was suicidal and she was willing to get help. Pt presented alert and oriented X 3, skin pwd. Pt ambulates with an upright steady gait, able to speak in clear full sentences. Physician History: Patient is a 43-year-old female presents to our ED escorted by PD. Per report patient told her preacher that she was planning on hurting herself. Patient plans on overdosing on pills. Patient states she attempted to kill herself in 2019 via overdose. Patient states that she is feels depressed. Patient states she recently broke up with her boyfriend of 10 years. The break-up occurred 2 months ago. Patient states she had an affair with a second person and her boyfriend of 10 years found out and broke up with her. Patient is from [place]. She has been here 10 years and came appear from [place] for her boyf josh. Patient denies pain. No nausea vomiting or diaphoresis. Patient denies taking any pills at this time. Patient is answering questions appropriately however appears upset. Patient voices no other complaints or concerns at this time. Portions of this note were created with voice recognition technology. There may be grammatical, spelling, punctuation or sound alike errors Timing/Duration: today Severity of Symptoms-Max: moderate Severity of Symptoms-Current: mild Context related to: significant other Suicidal thoughts: specific plan (Overdose) Associated Symptoms: depressed, No hallucinating Allergies/Adverse Reactions: acetaminophen [From Pamprin Max] Allergy (Verified 09/01/23 13:20) Hives aspirin [From Pamprin Max] Allergy (Verified 09/01/23 13:20) Hives coconut oil Allergy (Verified 09/01/23 13:20) Hives red (food color) Allergy (Verified 09/01/23 13:20) Hives uracil mustard Allergy (Verified 09/01/23 13:20) Hives Home Medications: Diltiazem HCl [Diltiazem 12Hr ER] 120 mg PO HS 07/23/22 [History] Testosterone 5 gm TD HS 07/23/22 [History] Lorazepam 0.5 mg [Ativan 0.5 MG] 0.5 mg PO BID 08/03/22 [History] Trazodone HCl 50 mg [Desyrel 50 mg] 50 mg PO HS 12/24/22 [History] Adalimumab [Humira(Cf) Pen] 40 mg SQ UD 09/01/23 [History] Escitalopram Oxalate [Lexapro] 10 mg PO DAILY 09/01/23 [History] Gabapentin [Neurontin] 800 mg PO BID 09/01/23 [History] Lorazepam 1 mg [Ativan 1 MG] 1 mg PO BID 09/01/23 [History] Losartan Potassium 12.5 mg PO DAILY 09/01/23 [History] Lurasidone HCl [Latuda] 60 mg PO DAILY 09/01/23 [History] Rabeprazole Sodium 20 mg PO DAILY 09/01/23 [History] Hx Tetanus, Diphtheria Vaccination/Date Given: No (unknown) Hx Influenza Vaccination/Date Given: No Hx Pneumococcal Vaccination/Date Given: No Immunizations Up to Date: No Travel Risk - International Travel Have you traveled outside of the country in past 3 weeks: No - Coronavirus Screening Are you exhibiting any of the following symptoms?: No Close contact with a COVID-19 positive Pt in past 14-21 Days: No - Vaccine Status Have you recieved a Covid-19 vaccination: Yes Casing Crew: Unknown - Vaccination Dates Dates if Unknown: na - Past Medical History Pertinent Past Medical History: Yes Neurological History: No Pertinent History ENT History: No Pertinent History Cardiac History: Other Respiratory History: Sleep Apnea Endocrine Medical History: No Pertinent History Musculoskeletal History: No Pertinent History GI Medical History: No Pertinent History History: No Pertinent History Psycho-Social History: Anxiety, Bipolar, Depression Female Reproductive Disorders: No Pertinent History Other Medical History: cardiomyopathy, leaky valve - Past Surgical History Past Surgical History: Yes Neuro Surgical History: No Pertinent History Cardiac: No Pertinent History Respiratory: No Pertinent History Gastrointestinal: Other Genitourinary: Other Musculoskeletal: No Pertinent History Female Surgical History: Section, Tubal Ligation Other Surgical History: breast augmentation, cystoscopy, kidney stone removal, uterine ablation, - Social History Smoking Status: Never smoker Exposure to second hand smoke: No Drug Use: none Patient Lives Alone: Yes - Female History Hx Last Menstrual Period: ablasion Hx Now: No - Review of Systems Constitutional: No Symptoms, No Fever, No Chills Eyes: No Symptoms Ears, Nose, & Throat: No Symptoms Respiratory: No Symptoms, No Cough, No Dyspnea Cardiac: No Symptoms, No Chest Pain, No Edema, No Syncope Abdominal/Gastrointestinal: No Symptoms, No Abdominal Pain, No Nausea, No Vomiting, No Diarrhea Genitourinary Symptoms: No Symptoms, No Dysuria Musculoskeletal: No Symptoms, No Back Pain, No Neck Pain Skin: No Symptoms, No Rash Neurological: No Symptoms, Other (Patient states she has a headache), No Dizziness, No Focal Weakness, No Sensory Changes Psychological: No Symptoms Endocrine: No Symptoms Hematologic/Lymphatic: No Symptoms Immunological/Allergic: No Symptoms All Other Systems: Reviewed and Negative - Nursing Vital Signs Nursing Vital Signs: Initial Vital Signs Temperature 98.2 F 09/06/23 18:19 Pulse Rate 88 09/06/23 18:19 Respiratory Rate 20 09/06/23 18:19 Blood Pressure 131/93 09/06/23 18:19 O2 Sat by Pulse Oximetry 99 09/06/23 18:19 Pain Scale Pain Intensity 5 - Physical Exam General Appearance: no apparent distress Eyes, Ears, Nose, Throat Exam: normal ENT inspection, moist mucous membranes Neck Exam: normal inspection, non-tender, supple Respiratory Exam: normal breath sounds, lungs clear, airway intact, No chest tenderness, No respiratory distress Cardiovascular Exam: regular rate/rhythm, normal heart sounds, normal peripheral pulses, No edema Gastrointestinal/Abdominal Exam: soft, No tenderness, No distention Extremities Exam: normal inspection, normal range of motion, No evidence of injury, No edema Peripheral Pulses: dorsalis-pedis (R): 2+, dorsalis-pedis (L): 2+ Current Suicidality: denies suicide plan Neurological Exam: alert, sewer II-XII nml as tested, 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, depressed af fect Appearance: appropriate appearance, appropriate insight, neat Behavior/Eye Contact/Speech: alert & cooperative, cooperative, good eye contact, normal speech Thoughts/Hallucinations: normal thought pattern, no apparent hallucination, auditory hallucinations Skin Exam: normal color, warm, dry, No rash SpO2 Interpretation: normal SpO2: 99 O2 Delivery: Room Air - Course Nursing assessment & vital signs reviewed: Yes Ordered Tests: Active Orders 24 hr Category Date Time Status Clean Catch Urine Specimen STAT Care 09/06/23 19:03 Active IV Insertion STAT Care 09/06/23 19:31 Active ACETAMINOPHEN Stat Lab 09/06/23 19:15 Completed CBC W DIFF Stat Lab 09/06/23 19:15 Completed CMP Stat Lab 09/06/23 19:15 Completed ETHYL ALCOHOL Stat Lab 09/06/23 19:15 Completed HCG QUALITATIVE, SERUM Stat Lab 09/06/23 19:15 Completed SALICYLATE Stat Lab 09/06/23 19:15 Completed UA W/RFX UR CULTURE Stat Lab 09/06/23 19:39 Completed Urine Triage Profile Stat Lab 09/06/23 19:39 Completed Medication Summary Discontinued Medications Generic Name Dose Route Start Last Admin Trade Name Mindy PRN Reason Stop Dose Admin Acetaminophen 1,000 mg 09/06/23 20:08 09/06/23 20:10 Acetaminophen 500 Mg Tablet PO 09/06/23 20:09 1,000 mg STAT STA Administration Acetaminophen Confirm 09/06/23 20:10 Acetaminophen 500 Mg Tablet Administered 09/06/23 20:11 Dose 1,000 mg .ROUTE .[employer] Lab/Rad Data: Laboratory Result Diagrams 09/06/23 19:15 09/06/23 19:15 Laboratory Results 09/06/23 09/06/23 09/06/23 Range/Units 20:43 19:39 19:39 WBC (4.0-10.5) x10^3/uL RBC (4.1-5.4) x10^6/uL Hgb (12.0-16.0) g/dL Hct (35-47) % MCV (78-100) fL MCH (26-32) pg MCHC (32-36) g/dL RDW (11.5-14.0) % Plt Count (150-450) x10^3/uL MPV (7.5-11.0) fL Gran % (36.0-66.0) % Immature Gran % (Auto) (0.00-0.4) % Nucleat RBC Rel Count (0.00-0.1) % Eos # (Auto) (0-0.5) x10^3/uL Immature Gran # (Auto) (0.00-0.03) x10^3u/L Absolute Lymphs (auto) (1.0-4.6) x10^3/uL Absolute Monos (auto) (0.0-1.3) x10^3/uL Absolute Nucleated RBC (0.00-0.01) x10^3u/L Lymphocytes % (24.0-44.0) % Monocytes % (0.0-12.0) % Eosinophils % (0.00-5.0) % Basophils % (0.0-0.4) % Absolute Granulocytes (1.4-6.9) x10^3/uL Basophils # (0-0.4) x10^3/uL Sodium (137-145) mmol/L Potassium (3.5-5.1) mmol/L Chloride (98-107) mmol/L Carbon Dioxide (22-30) mmol/L Anion Gap (5-15) MEQ/L BUN (7-17) mg/dL Creatinine (0.52-1.04) mg/dL Estimated GFR ML/MIN Glucose (74-106) mg/dL Calcium (8.4-10.2) mg/dL Total Bilirubin (0.2-1.3) mg/dL AST (14-36) U/L ALT (0-35) U/L Alkaline Phosphatase (38-126) U/L Serum Total Protein (6.3-8.2) g/dL Albumin (3.5-5.0) g/dL Serum HCG, Qual (NEGATIVE) Urine Color Yellow (Yellow) Urine Appearance Clear (Clear) Urine pH 7.0 (4.6-8.0) Ur Specific [place] <=1.005 (1.005-1.030) Urine Protein Negative (Negative) Urine Glucose (UA) Negative (Negative) mg/dL Urine Ketones Negative (Negative) Urine Blood Negative (Negative) Urine Nitrite Negative (Negative) Urine Bilirubin Negative (Negative) Urine Urobilinogen 0.2 (0.2) mg/dL Ur Leukocyte Esterase Negative (Negative) U Hyaline Cast (Auto) NONE SEEN (0-2) /LPF Urine Microscopic RBC 0-2 (0-5) /HPF Urine Microscopic WBC 0-2 (0-5) /HPF Ur Epithelial Cells None Seen (None Seen) /HPF Urine Bacteria None Seen (None Seen) /HPF Urine Culture Reflexed NO (NO) Salicylates (2-20) mg/dL Urine Opiates Level NEGATIVE (NEGATIVE) Ur Methadone NEGATIVE (NEGATIVE) Acetaminophen (10-30) ug/ml Urine Barbiturates NEGATIVE (NEGATIVE) Ur Phencyclidine (PCP) NEGATIVE (NEGATIVE) Urine Amphetamine NEGATIVE (NEGATIVE) U Benzodiazepine Level NEGATIVE (NEGATIVE) Urine Cocaine NEGATIVE (NEGATIVE) Urine Marijuana (THC) NEGATIVE (NEGATIVE) Ethyl Alcohol (0-10) mg/dL Influenza Type A Ag NEGATIVE (NEGATIVE) Influenza Type B Ag NEGATIVE (NEGATIVE) RSV (PCR) NEGATIVE (NEGATIVE) SARS-CoV-2 (PCR) NEGATIVE (NEGATIVE) 09/06/23 09/06/23 09/06/23 Range/Units 19:15 19:15 19:15 WBC (4.0-10.5) x10^3/uL RBC (4.1-5.4) x10^6/uL Hgb (12.0-16.0) g/dL Hct (35-47) % MCV (78-100) fL MCH (26-32) pg MCHC (32-36) g/dL RDW (11.5-14.0) % Plt Count (150-450) x10^3/uL MPV (7.5-11.0) fL Gran % (36.0-66.0) % Immature Gran % (Auto) (0.00-0.4) % Nucleat RBC Rel Count (0.00-0.1) % Eos # (Auto) (0-0.5) x10^3/uL Immature Gran # (Auto) (0.00-0.03) x10^3u/L Absolute Lymphs (auto) (1.0-4.6) x10^3/uL Absolute Monos (auto) (0.0-1.3) x10^3/uL Absolute Nucleated RBC (0.00-0.01) x10^3u/L Lymphocytes % (24.0-44.0) % Monocytes % (0.0-12.0) % Eosinophils % (0.00-5.0) % Basophils % (0.0-0.4) % Absolute Granulocytes (1.4-6.9) x10^3/uL Basophils # (0-0.4) x10^3/uL Sodium 136 L (137-145) mmol/L Potassium 3.6 (3.5-5.1) mmol/L Chloride 104 (98-107) mmol/L Carbon Dioxide 28 (22-30) mmol/L Anion Gap 7.9 (5-15) MEQ/L BUN 8 (7-17) mg/dL Creatinine 0.94 (0.52-1.04) mg/dL Estimated GFR 77.2 ML/MIN Glucose 105 (74-106) mg/dL Calcium 9.2 (8.4-10.2) mg/dL Total Bilirubin 0.20 (0.2-1.3) mg/dL AST 33 (14-36) U/L ALT 22 (0-35) U/L Alkaline Phosphatase 63 (38-126) U/L Serum Total Protein 6.5 (6.3-8.2) g/dL Albumin 3.6 (3.5-5.0) g/dL Serum HCG, Qual NEGATIVE (NEGATIVE) Urine Color (Yellow) Urine Appearance (Clear) Urine pH (4.6-8.0) Ur Specific [place] (1.005-1.030) Urine Protein (Negative) Urine Glucose (UA) (Negative) mg/dL Urine Ketones (Negative) Urine Blood (Negative) Urine Nitrite (Negative) Urine Bilirubin (Negative) Urine Urobilinogen (0.2) mg/dL Ur Leukocyte Esterase (Negative) U Hyaline Cast (Auto) (0-2) /LPF Urine Microscopic RBC (0-5) /HPF Urine Microscopic WBC (0-5) /HPF Ur Epithelial Cells (None Seen) /HPF Urine Bacteria (None Seen) /HPF Urine Culture Reflexed (NO) Salicylates < 1.0 L (2-20) mg/dL Urine Opiates Level (NEGATIVE) Ur Methadone (NEGATIVE) Acetaminophen < 10 L (10-30) ug/ml Urine Barbiturates (NEGATIVE) Ur Phencyclidine (PCP) (NEGATIVE) Urine Amphetamine (NEGATIVE) U Benzodiazepine Level (NEGATIVE) Urine Cocaine (NEGATIVE) Urine Marijuana (THC) (NEGATIVE) Ethyl Alcohol < 10 (0-10) mg/dL Influenza Type A Ag (NEGATIVE) Influenza Type B Ag (NEGATIVE) RSV (PCR) (NEGATIVE) SARS-CoV-2 (PCR) (NEGATIVE) 09/06/23 Range/Units 19:15 WBC 6.3 (4.0-10.5) x10^3/uL RBC 4.84 (4.1-5.4) x10^6/uL Hgb 13.2 (12.0-16.0) g/dL Hct 41.1 (35-47) % MCV 84.9 (78-100) fL MCH 27.3 (26-32) pg MCHC 32.1 (32-36) g/dL RDW 13.1 (11.5-14.0) % Plt Count 249 (150-450) x10^3/uL MPV 10.5 (7.5-11.0) fL Gran % 40.7 (36.0-66.0) % Immature Gran % (Auto) 0.2 (0.00-0.4) % Nucleat RBC Rel Count 0.0 (0.00-0.1) % Eos # (Auto) 0.14 (0-0.5) x10^3/uL Immature Gran # (Auto) 0.01 (0.00-0.03) x10^3u/L Absolute Lymphs (auto) 2.68 (1.0-4.6) x10^3/uL Absolute Monos (auto) 0.87 (0.0-1.3) x10^3/uL Absolute Nucleated RBC 0.00 (0.00-0.01) x10^3u/L Lymphocytes % 42.5 (24.0-44.0) % Monocytes % 13.8 H (0.0-12.0) % Eosinophils % 2.2 (0.00-5.0) % Basophils % 0.6 (0.0-0.4) % Absolute Granulocytes 2.57 (1.4-6.9) x10^3/uL Basophils # 0.04 (0-0.4) x10^3/uL Sodium (137-145) mmol/L Potassium (3.5-5.1) mmol/L Chloride (98-107) mmol/L Carbon Dioxide (22-30) mmol/L Anion Gap (5-15) MEQ/L BUN (7-17) mg/dL Creatinine (0.52-1.04) mg/dL Estimated GFR ML/MIN Glucose (74-106) mg/dL Calcium (8.4-10.2) mg/dL Total Bilirubin (0.2-1.3) mg/dL AST (14-36) U/L ALT (0-35) U/L Alkaline Phosphatase (38-126) U/L Serum Total Protein (6.3-8.2) g/dL Albumin (3.5-5.0) g/dL Serum HCG, Qual (NEGATIVE) Urine Color (Yellow) Urine Appearance (Clear) Urine pH (4.6-8.0) Ur Specific [place] (1.005-1.030) Urine Protein (Negative) Urine Glucose (UA) (Negative) mg/dL Urine Ketones (Negative) Urine Blood (Negative) Urine Nitrite (Negative) Urine Bilirubin (Negative) Urine Urobilinogen (0.2) mg/dL Ur Leukocyte Esterase (Negative) U Hyaline Cast (Auto) (0-2) /LPF Urine Microscopic RBC (0-5) /HPF Urine Microscopic WBC (0-5) /HPF Ur Epithelial Cells (None Seen) /HPF Urine Bacteria (None Seen) /HPF Urine Culture Reflexed (NO) Salicylates (2-20) mg/dL Urine Opiates Level (NEGATIVE) Ur Methadone (NEGATIVE) Acetaminophen (10-30) ug/ml Urine Barbiturates (NEGATIVE) Ur Phencyclidine (PCP) (NEGATIVE) Urine Amphetamine (NEGATIVE) U Benzodiazepine Level (NEGATIVE) Urine Cocaine (NEGATIVE) Urine Marijuana (THC) (NEGATIVE) Ethyl Alcohol (0-10) mg/dL Influenza Type A Ag (NEGATIVE) Influenza Type B Ag (NEGATIVE) RSV (PCR) (NEGATIVE) SARS-CoV-2 (PCR) (NEGATIVE) - Progress Progress: improved Progress Note: Patient is a 43-year-old female presents to our emergency department for psychiatric evaluation for suicidal ideation. Physical exam patient has a depressed mood. However she is cooperative. Laboratory workup is essentially nonremarkable. Acetaminophen level negative. CBC CMP nonremarkable. COVID test RSV influenza negative. Alcohol level negative. hCG negative. Salicylate negative. Urinalysis negative for urinary tract infection. Urine triage unre markable. Patient received a dose of oral Tylenol for headache. Throughout her stay in our ED patient has been cooperative and resting. Vitals have been stable. Patient accepted to [facility] under the care of Dr. Goff at [id number]. Portions of this note were created with voice recognition technology. There may be grammatical, spelling, punctuation or sound alike errors Complexity of problems addressed is moderate acute complicated No critical care time Complexity of data reviewed and analyzed is extensive. Test ordered test reviewed. Results analyzed and correlated clinically. Communication with Dr. Goff at 2111 who accepts transfer to [facility] Risk complication and or risk of morbidity/mortality of patient management is high. Patient requires hospitalization/higher level of care for further evaluation and treatment. Vital stable. Time spent to disposition patient is approximately 15 minutes. Plan of care established for shared decision making. Patient stated she wanted to speak to a professional regarding her feelings and suicidal ideation. 09/06/23 22:37 Will see patient in: other Counseled pt/family regarding: lab results, diagnosis - Departure Departure Disposition: Transfer Clinical Impression: Suicidal ideation, Has access to planned means of suicide, Depressed mood Condition: Stable Critical Care Time: No Referrals: DEVORA BARKER NP [Primary Care Provider] - Follow up/PCP as directed
[2023-09-06 21:22] LABS: INFLUENZA A NEGATIVE (NEGATIVE); INFLUENZA B NEGATIVE (NEGATIVE); RESPIRATORY SYNCTIAL VIRUS NEGATIVE (NEGATIVE); SARS-CoV-2 Xpert Express NEGATIVE (NEGATIVE)
[2023-09-06 22:05] VITALS: BP 123/81; PULSE 84
[2023-09-06 22:40] VITALS: O2SAT 99
== END 2023-09-06 22:30 ==
LOC: ED 18:18
DX: R45.851 Suicidal ideations (principal); F32.A Depression, unspecified; Z63.5 Disruption of family by separation and divorce; Z79.899 Other long term (current) drug therapy
CPT/HCPCS: 0241U; 36415; 80053; 80143; 80179; 80307; 81001; 82077; 84703; 85025; 99284; A9270-GY

== ENCOUNTER 2023-10-30 13:11 | Emergency (ER) | payer OTHER ==
[2023-10-30 13:32] VITALS: TEMP 98.7; O2SAT 97
[2023-10-30 13:51] LABS: Appearance Clear (Clear); Bacteria None Seen /HPF (None Seen); Bilirubin Negative (Negative); Blood Negative (Negative); Epithelial Cells Few /HPF (None Seen); Glucose, Urine Negative (Negative); Hyaline Casts NONE SEEN /LPF (0-2); Ketones Negative (Negative); Leukocyte Esterase Trace (Negative); Nitrite Negative (Negative); Protein,Urine Dip Negative (Negative); RBC 0-2 /HPF (0-5); Specific Gravity <=1.005 (1.005-1.030); Urobilinogen 0.2 mg/dL (0.2); WBC 0-2 /HPF (0-5)
[2023-10-30 14:00] LABS: ADD URINE CULTURE? NO (NO)
[2023-10-30 14:06] LABS: BASOPHIL % 0.6 % (0.0-0.4); Basophil (Absolute #) 0.04 x10^3/uL (0-0.4); Eosinophil % 3.4 % (0.00-5.0); Eosinophil (Absolute #) 0.21 x10^3/uL (0-0.5); Hematocrit 39.1 % (35-47); Hemoglobin 12.4 g/dL (12.0-16.0); IMMATURE GRAN # 0.02 x10^3u/L (0.00-0.03); IMMATURE GRAN % 0.3 % (0.00-0.4); Lymphocyte (Absolute #) 2.16 x10^3/uL (1.0-4.6); Mean Cell Volume 86.3 fL (78-100); Mean Corpuscular Hemoglobin 27.4 pg (26-32); Mean Corpuscular Hgb Concent. 31.7 g/dL (32-36); Mean Platelet Volume 10.7 fL (7.5-11.0); Monocyte (Absolute #) 0.74 x10^3/uL (0.0-1.3); Neutrophil % 48.7 % (36.0-66.0); Platelet Count 242 x10^3/uL (150-450); Red Blood Count 4.53 x10^6/uL (4.1-5.4); Red Cell Distribution Width 13.3 % (11.5-14.0); White Blood Count 6.2 x10^3/uL (4.0-10.5)
[2023-10-30 14:22] LABS: Erythrocyte Sedimentation Rate 4 mm/hr (0-20)
[2023-10-30 14:26] LABS: ALBUMIN 3.4 g/dL (3.5-5.0); ANION GAP 4.1 MEQ/L (5-15); BILIRUBIN,TOTAL 0.3 mg/dL (0.2-1.3); Calcium 8.6 mg/dL (8.4-10.2); Creatinine 1 0.75 mg/dL (0.52-1.04); EST GLOMERULAR FILTRATION RATE 101.2 ML/MIN; MAGNESIUM 1.7 mg/dL (1.6-2.3); Potassium 3.4 mmol/L (3.5-5.1); Total Protein 6.1 g/dL (6.3-8.2)
[2023-10-30 14:49] LABS: T4 (Thyroxine) 8.05 ug/dL (5.53-10.96); TSH, 3RD Generation 2.12 mIU/L (0.47-4.68)
[2023-10-30 15:19] VITALS: BP 128/94; PULSE 79
--- NOTE | 2023-10-30 15:20 | ERPHSYRPT ---
- History of Present Illness Time Seen by Provider: 10/30/23 14:10 Source: patient Exam Limitations: no limitations Patient Subjective Stated Complaint: amber feet were swollen when she got off work last night and they are still swollen today and has right knee pain Triage Nursing Assessment: Pt brought self to the ER, vitals wnl, rates knee and feet pain as 04/18, amber feet has pitting edema, pain just below the right knee, pulses normal, skin n/w/d, denies ever having swollen feet before, started a new bipolar med approx 3 days ago and ended her old one on the same day, denies difficulty breathing, denies chest pain, doesn't appear to be in any distress Physician History: Patient is a 43-year-old white female who presents with swelling in both legs which has not gone down overnight. She works at [employer] for 3 years stands on concrete all day. She denies any change in urination or shortness of breath. She does have some complaint of slight pain in the anterior part of the knees and the patellar area. Allergies/Adverse Reactions: coconut oil Allergy (Verified 10/30/23 13:40) Hives red (food color) Allergy (Verified 10/30/23 13:40) Hives uracil mustard Allergy (Verified 10/30/23 13:40) Hives Home Medications: Diltiazem HCl [Diltiazem 12Hr ER] 120 mg PO HS 07/23/22 [History] Testosterone 5 gm TD HS 07/23/22 [History] Trazodone HCl 50 mg [Desyrel 50 mg] 100 mg PO HS 12/24/22 [History] Adalimumab [Humira(Cf) Pen] 40 mg SQ UD 09/01/23 [History] Escitalopram Oxalate [Lexapro] 10 mg PO DAILY 09/01/23 [History] Gabapentin [Neurontin] 800 mg PO TID 09/01/23 [History] Lorazepam 1 mg [Ativan 1 MG] 1 mg PO BID 09/01/23 [History] Losartan Potassium 12.5 mg PO DAILY 09/01/23 [History] Rabeprazole Sodium 20 mg PO DAILY 09/01/23 [History] Duloxetine HCl [Cymbalta] 60 mg PO DAILY 10/30/23 [History] Olanzapine/Samidorphan Malate [Lybalvi 5-10 mg Tablet] 1 tab PO DAILY 10/30/23 [History] Phentermine HCl 37.5 mg PO DAILY 10/30/23 [History] Hx Tetanus, Diphtheria Vaccination/Date Given: No (unknown) Hx Influenza Vaccination/Date Given: No Hx Pneumococcal Vaccination/Date Given: No Travel Risk - International Travel Have you traveled outside of the country in past 3 weeks: No - Coronavirus Screening Are you exhibiting any of the following symptoms?: No Close contact with a COVID-19 positive Pt in past 14-21 Days: No - Vaccine Status Have you recieved a Covid-19 vaccination: Yes 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 - Vaccination Dates Dates if Unknown: na - Review of Systems Constitutional: No Fever, No Chills Eyes: No Symptoms Ears, Nose, & Throat: No Symptoms Respiratory: No Cough, No Dyspnea Cardiac: No Chest Pain, No Edema, No Syncope Abdominal/Gastrointestinal: No Abdominal Pain, No Nausea, No Vomiting, No Diarrhea Genitourinary Symptoms: No Dysuria Musculoskeletal: Joint Swelling, No Back Pain, No Neck Pain Skin: No Rash Neurological: No Dizziness, No Focal Weakness, No Sensory Changes Psychological: No Symptoms Endocrine: No Symptoms All Other Systems: Reviewed and Negative - Past Medical History Pertinent Past Medical History: Yes Neurological History: No Pertinent History ENT History: No Pertinent History Cardiac History: Other Respiratory History: Sleep Apnea Endocrine Medical History: No Pertinent History Musculoskeletal History: No Pertinent History GI Medical History: No Pertinent History History: No Pertinent History Psycho-Social History: Anxiety, Bipolar, Depression Female Reproductive Disorders: No Pertinent History Other Medical History: cardiomyopathy, leaky valve - Past Surgical History Past Surgical History: Yes Neuro Surgical History: No Pertinent History Cardiac: No Pertinent History Respiratory: No Pertinent History Gastrointestinal: Other Genitourinary: Other Musculoskeletal: No Pertinent History Female Surgical History: Section, Tubal Ligation Other Surgical History: breast augmentation, cystoscopy, kidney stone removal, uterine ablation, - Social History Smoking Status: Never smoker Exposure to second hand smoke: No Drug Use: none Patient Lives Alone: Yes - Female History Hx Now: No (ablasion) - Nursing Vital Signs Nursing Vital Signs: Initial Vital Signs Temperature 98.7 F 10/30/23 13:16 Pulse Rate 86 10/30/23 13:16 Blood Pressure 135/83 10/30/23 13:16 O2 Sat by Pulse Oximetry 97 10/30/23 13:16 Pain Scale Pain Intensity 7 - Physical Exam General Appearance: alert Eyes, Ears, Nose, Throat Exam: moist mucous membranes Neck Exam: non-tender, supple Cardiovascular/Respiratory Exam: chest non-tender, normal breath sounds, regular rate/rhythm, no respiratory distress Gastrointestinal/Abdominal Exam: non-tender, guarding Back Exam: normal inspection, No vertebral tenderness Hips Exam: bilateral: non-tender, normal inspection, normal range of motion Legs Exam: bilateral leg: pain, soft tissue tenderness, swelling Knees Exam: bilateral knee: non-tender, normal inspection, normal range of motion, bone tenderness Ankle Exam: bilateral ankle: non-tender, normal inspection, normal range of motion Foot Exam: bilateral foot: non-tender, normal inspection, normal range of motion Neuro/Tendon Exam: normal sensation, normal motor functions Mental Status Exam: alert, 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, cooperative Skin Exam: normal color, warm, dry SpO2 Interpretation: normal SpO2: 97 O2 Delivery: Room Air - Course Nursing assessment & vital signs reviewed: Yes Ordered Tests: Active Orders 24 hr Category Date Time Status IV Insertion STAT Care 10/30/23 13:24 Active CBC W DIFF Stat Lab 10/30/23 13:45 Completed CMP Stat Lab 10/30/23 13:45 Completed D-DIMER QUANTITATIVE Stat Lab 10/30/23 13:45 Completed Erythrocyte Sedimentation Rate Stat Lab 10/30/23 13:45 Completed Lactic Acid Stat Lab 10/30/23 13:45 Completed MAGNESIUM Stat Lab 10/30/23 13:45 Completed NT PRO BNPII Stat Lab 10/30/23 13:45 Completed T4 (Thyroxine) Stat Lab 10/30/23 13:28 Completed TSH [TSH, 3RD Generation] Stat Lab 10/30/23 13:28 Completed UA W/RFX UR CULTURE Stat Lab 10/30/23 13:41 Completed Lab/Rad Data: Laboratory Result Diagrams 10/30/23 13:45 10/30/23 13:45 Laboratory Results 10/30/23 10/30/23 10/30/23 Range/Units 13:45 13:45 13:45 WBC (4.0-10.5) x10^3/uL RBC (4.1-5.4) x10^6/uL Hgb (12.0-16.0) g/dL Hct (35-47) % MCV (78-100) fL MCH (26-32) pg MCHC (32-36) g/dL RDW (11.5-14.0) % Plt Count (150-450) x10^3/uL MPV (7.5-11.0) fL Gran % (36.0-66.0) % Immature Gran % (Auto) (0.00-0.4) % Nucleat RBC Rel Count (0.00-0.1) % Eos # (Auto) (0-0.5) x10^3/uL Immature Gran # (Auto) (0.00-0.03) x10^3u/L Absolute Lymphs (auto) (1.0-4.6) x10^3/uL Absolute Monos (auto) (0.0-1.3) x10^3/uL Absolute Nucleated RBC (0.00-0.01) x10^3u/L Lymphocytes % (24.0-44.0) % Monocytes % (0.0-12.0) % Eosinophils % (0.00-5.0) % Basophils % (0.0-0.4) % Absolute Granulocytes (1.4-6.9) x10^3/uL Basophils # (0-0.4) x10^3/uL ESR (0-20) mm/hr D-Dimer 0.66 H* (0.0-0.50) mg/L Sodium 134 L (137-145) mmol/L Potassium 3.4 L (3.5-5.1) mmol/L Chloride 103 (98-107) mmol/L Carbon Dioxide 30 (22-30) mmol/L Anion Gap 4.1 L (5-15) MEQ/L BUN 6 L (7-17) mg/dL Creatinine 0.75 (0.52-1.04) mg/dL Estimated GFR 101.2 ML/MIN Glucose 102 (74-106) mg/dL Lactic Acid 0.8 (0.4-2.0) Calcium 8.6 (8.4-10.2) mg/dL Magnesium 1.7 (1.6-2.3) mg/dL Total Bilirubin 0.30 (0.2-1.3) mg/dL AST 35 (14-36) U/L ALT 25 (0-35) U/L Alkaline Phosphatase 65 (38-126) U/L NT-Pro-B Natriuret Pep 221 (<300) pg/mL Serum Total Protein 6.1 L (6.3-8.2) g/dL Albumin 3.4 L (3.5-5.0) g/dL Thyroxine (T4) (5.53-10.96) ug/dL TSH 3rd Generation (0.47-4.68) mIU/L Urine Color (Yellow) Urine Appearance (Clear) Urine pH (4.6-8.0) Ur Specific Bruce (1.005-1.030) Urine Protein (Negative) Urine Glucose (UA) (Negative) mg/dL Urine Ketones (Negative) Urine Blood (Negative) Urine Nitrite (Negative) Urine Bilirubin (Negative) Urine Urobilinogen (0.2) mg/dL Ur Leukocyte Esterase (Negative) U Hyaline Cast (Auto) (0-2) /LPF Urine Microscopic RBC (0-5) /HPF Urine Microscopic WBC (0-5) /HPF Ur Epithelial Cells (None Seen) /HPF Urine Bacteria (None Seen) /HPF Urine Culture Reflexed (NO) 10/30/23 10/30/23 10/30/23 Range/Units 13:45 13:41 13:28 WBC 6.2 (4.0-10.5) x10^3/uL RBC 4.53 (4.1-5.4) x10^6/uL Hgb 12.4 (12.0-16.0) g/dL Hct 39.1 (35-47) % MCV 86.3 (78-100) fL MCH 27.4 (26-32) pg MCHC 31.7 L (32-36) g/dL RDW 13.3 (11.5-14.0) % Plt Count 242 (150-450) x10^3/uL MPV 10.7 (7.5-11.0) fL Gran % 48.7 (36.0-66.0) % Immature Gran % (Auto) 0.3 (0.00-0.4) % Nucleat RBC Rel Count 0.0 (0.00-0.1) % Eos # (Auto) 0.21 (0-0.5) x10^3/uL Immature Gran # (Auto) 0.02 (0.00-0.03) x10^3u/L Absolute Lymphs (auto) 2.16 (1.0-4.6) x10^3/uL Absolute Monos (auto) 0.74 (0.0-1.3) x10^3/uL Absolute Nucleated RBC 0.00 (0.00-0.01) x10^3u/L Lymphocytes % 35.0 (24.0-44.0) % Monocytes % 12.0 (0.0-12.0) % Eosinophils % 3.4 (0.00-5.0) % Basophils % 0.6 (0.0-0.4) % Absolute Granulocytes 3.00 (1.4-6.9) x10^3/uL Basophils # 0.04 (0-0.4) x10^3/uL ESR 4 (0-20) mm/hr D-Dimer (0.0-0.50) mg/L Sodium (137-145) mmol/L Potassium (3.5-5.1) mmol/L Chloride (98-107) mmol/L Carbon Dioxide (22-30) mmol/L Anion Gap (5-15) MEQ/L BUN (7-17) mg/dL Creatinine (0.52-1.04) mg/dL Estimated GFR ML/MIN Glucose (74-106) mg/dL Lactic Acid (0.4-2.0) Calcium (8.4-10.2) mg/dL Magnesium (1.6-2.3) mg/dL Total Bilirubin (0.2-1.3) mg/dL AST (14-36) U/L ALT (0-35) U/L Alkaline Phosphatase (38-126) U/L NT-Pro-B Natriuret Pep (<300) pg/mL Serum Total Protein (6.3-8.2) g/dL Albumin (3.5-5.0) g/dL Thyroxine (T4) 8.05 (5.53-10.96) ug/dL TSH 3rd Generation 2.120 (0.47-4.68) mIU/L Urine Color Yellow (Yellow) Urine Appearance Clear (Clear) Urine pH 6.0 (4.6-8.0) Ur Specific Bruce <=1.005 (1.005-1.030) Urine Protein Negative (Negative) Urine Glucose (UA) Negative (Negative) mg/dL Urine Ketones Negative (Negative) Urine Blood Negative (Negative) Urine Nitrite Negative (Negative) Urine Bilirubin Negative (Negative) Urine Urobilinogen 0.2 (0.2) mg/dL Ur Leukocyte Esterase Trace A (Negative) U Hyaline Cast (Auto) NONE SEEN (0-2) /LPF Urine Microscopic RBC 0-2 (0-5) /HPF Urine Microscopic WBC 0-2 (0-5) /HPF Ur Epithelial Cells Few (None Seen) /HPF Urine Bacteria None Seen (None Seen) /HPF Urine Culture Reflexed NO (NO) - Progress Progress: unchanged Medical Desision Making - Diagnostic Testing Diagnostic test were ordered, analyzed, and reviewed by me: Yes - Risk of complications Minimal Risk: Minimal risk of morbidity - Departure Departure Disposition: Home Clinical Impression: Edema Condition: Stable Critical Care Time: No Referrals: DEVORA BARKER NP [Primary Care Provider] - Follow up/PCP as directed Instructions: Dependent Edema (DC) Prescriptions: Furosemide 20 mg [Lasix 20 mg] 20 mg PO BID #10 tablet
== END 2023-10-30 15:28 | disposition home or self-care (01) ==
LOC: ED 13:11
DX: R60.0 Localized edema (principal); M25.561 Pain in right knee; M25.562 Pain in left knee; Z79.899 Other long term (current) drug therapy
CPT/HCPCS: 36000; 36415; 80053; 81001; 83605; 83735; 83880; 84436; 84443; 85025; 85379; 85652; 99283

== ENCOUNTER 2024-03-26 13:55 | Emergency (ER) | payer OTHER ==
[2024-03-26 14:06] VITALS: TEMP 98.2
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
[2024-03-26] MEDS ORDERED: TYLENOL 325 MG ONE (14:27)
[2024-03-26] MEDS: TYLENOL 325 MG PO STA (14:27)
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
[2024-03-26] MEDS ORDERED: TORAdol 30 mg Injection ONE (15:46)
[2024-03-26] MEDS ORDERED: Norflex 60 MG/2 ML ONE (15:46)
[2024-03-26] MEDS: Norflex 60 MG/2 ML IV ONE (15:50)
[2024-03-26] MEDS: TORAdol 30 mg Injection IV ONE (15:50)
[2024-03-26 16:40] VITALS: BP 130/80; PULSE 80; RESP 18; O2SAT 96
== END 2024-03-26 16:50 | disposition home or self-care (01) ==
LOC: ED 13:55
DX: S22.080A Wedge compression fracture of T11-T12 vertebra, initial encounter for closed fracture (principal); V86.59XA Driver of other special all-terrain or other off-road motor vehicle injured in nontraffic accident, initial encounter; R10.9 Unspecified abdominal pain; R10.2 Pelvic and perineal pain; M54.50 Low back pain, unspecified; I10 Essential (primary) hypertension; Z79.899 Other long term (current) drug therapy
CPT/HCPCS: 36000; 70450; 72125; 72128; 74176; 76376; 96374; 96375; 99285; J1885; J2360; A9270-GY

== ENCOUNTER 2024-10-12 06:28 | Day surgery (SDC) | payer OTHER ==
[2024-10-12 06:42] VITALS: RESP 16; TEMP 98.3
[2024-10-12 06:47] LABS: HCG URINE TEST NEGATIVE (NEGATIVE)
[2024-10-12 07:24] LABS: ALBUMIN 3.1 g/dL (3.5-5.0); BILIRUBIN,TOTAL 0.3 mg/dL (0.2-1.3); Calcium 8.6 mg/dL (8.4-10.2); Creatinine 1 0.87 mg/dL (0.52-1.04); EST GLOMERULAR FILTRATION RATE 84.2 ML/MIN; Total Protein 5.8 g/dL (6.3-8.2)
[2024-10-12 07:32] LABS: Potassium 2.9 mmol/L (3.5-5.1)
[2024-10-12] MEDS: POTASSIUM CHLORIDE 20 mEq IN WATER 100ML 20 MEQ/100 ML BAG IV ONE (07:46)
[2024-10-12] MEDS ORDERED: propofoL IV ONE ×2 (08:08→08:22)
[2024-10-12] MEDS ORDERED: Lactated Ringers 1,000 ML IV ONE (08:22)
--- NOTE | 2024-10-12 08:37 | PCM.DCORD ---
- Discharge Disposition: Home, Self-Care Condition: Stable Prescriptions: New PANTOPRAZOLE 40 mg Tablet [Protonix 40MG Tablet] 40 mg PO QPM #30 tab Continue dilTIAZem HCL [Diltiazem 12Hr ER] 120 mg PO HS Trazodone HCl 50 mg [Desyrel 50 mg] 200 mg PO HS Lorazepam 1 mg [Ativan 1 MG] 1 mg PO BID Duloxetine HCl [Cymbalta] 60 mg PO DAILY Pregabalin [Lyrica 100Mg] 100 mg PO DAILY Ixekizumab [Taltz Autoinjector] 80 mg SQ UD Phentermine HCl 37.5 mg PO UD Solifenacin Succinate 10 mg PO UD Potassium Chloride 20 meq PO UD Metoprolol Tartrate 25 mg PO UD Olanzapine/Samidorphan Malate [Lybalvi 5-10 mg Tablet] 1 each PO UD Losartan Potassium 25 mg PO UD Fluticasone Propionate 50 mcg NEB UD EPINEPHrine [Auvi-Q] 0.1 mg SQ UD Sodium Fluoride/Potassium Nit [Denta 5000 Plus Sensitiv Paste] 1 each PO UD Albuterol Sulfate [Proair Respiclick] 90 mcg NEB UD Olanzapine/Samidorphan Malate [Lybalvi 5-10 mg Tablet] 1 each PO DAILY Discontinued Rabeprazole Sodium 20 mg PO DAILY Follow up with: DEVORA BARKER NP [Primary Care Provider] -
[2024-10-12] MEDS: NON-FORMULARY ITEM PO SCH (09:50)
[2024-10-12 10:23] VITALS: BP 109/75; PULSE 65; O2SAT 97
--- NOTE | 2024-10-13 00:04 | OP ---
SURGERY DATE/TIME: 10/12/2024 [id number] PREOPERATIVE DIAGNOSIS: Persistent gastroesophageal reflux disease. POSTOPERATIVE DIAGNOSES: 1) Mild gastritis. 2) Distal esophagitis. PROCEDURE: Esophagogastroduodenoscopy. SURGEON: Joe Chauhan MD. ANESTHESIA: MAC, by Pepito Jeter CRNA. ESTIMATED BLOOD LOSS: Minimal. SPECIMENS: Cold forceps biopsy of gastric antrum x2 and cold forceps biopsy of distal esophagus x2. DESCRIPTION OF PROCEDURE AND FINDINGS: After informed written consent was obtained, the patient was taken to the endoscopy suite. She was placed in the left lateral decubitus position, and anesthesia was titrated to the desired level of consciousness after a bite block was inserted. The endoscope was inserted in the posterior oropharynx. Under direct visualization, the esophagus was traversed. The stomach had normal rugated gastric mucosa. In the area of the gastric antrum, there were some mild gastritis-type changes but no focal ulcerations or active bleeding. Pylorus was traversed, and the duodenum had a normal mucosal appearance. Two cold forceps biopsies were taken from the gastric antrum and sent for H pylori testing. The remainder of the gastric cavity showed no obvious abnormalities. Upon withdrawal, the gastroesophageal junction had a normal mucosal appearance. The distal esophagus had some mild gastritis-type changes with a thin white mucoid film concerning for possible fungal etiology. Two cold forceps biopsies were taken from event marketing representative areas and sent for testing to evaluate for possible esophagitis. There was mild blood loss, no active bleeding after removal. The scope was withdrawn. The patient was transferred to the recovery room in good condition. She has had persistent symptoms despite Prevacid 20 mg daily. Therefore, I have advised that she discontinue that and plan to start her on Protonix 40 mg daily upon discharge. She will follow up in a week for pathology report.
== END 2024-10-12 10:23 | disposition home or self-care (01) ==
LOC: SDC 06:28
PROVIDERS: ATTEND Family Medicine
DX: K29.70 Gastritis, unspecified, without bleeding (principal); K21.9 Gastro-esophageal reflux disease without esophagitis; K20.90 Esophagitis, unspecified without bleeding
CPT/HCPCS: 36415; 80053; 81025; 88305; 88312; 88342; 93005; 93041; J2704; J3480

== ENCOUNTER 2024-10-23 14:54 | Emergency (ER) | payer OTHER ==
[2024-10-23 15:41] VITALS: TEMP 96.7
[2024-10-23] MEDS ORDERED: Sodium Chloride 0.9% 1000 ML 1,000 ML ONE ×2 (15:46→16:57)
[2024-10-23] MEDS ORDERED: Compazine 10 MG/2 ML ONE (15:46)
[2024-10-23] MEDS: Sodium Chloride 0.9% 1000 ML 1,000 ML IV STA (15:47)
[2024-10-23] MEDS: Compazine 10 MG/2 ML IV ONE (15:47)
[2024-10-23 15:53] LABS: Absolute Neutrophil Ct (ANC) 6.87 x10^3/uL (1.56-6.13); BASOPHIL % 0.1 % (0.1-1.2); Basophil (Absolute #) 0.01 x10^3/uL (0.01-0.08); Eosinophil % 0.6 % (0.7-5.8); Eosinophil (Absolute #) 0.06 x10^3/uL (0.04-0.36); Hematocrit 40.8 % (34.1-44.9); Hemoglobin 13.6 g/dL (11.2-15.7); IMMATURE GRAN # 0.04 x10^3u/L (0.001-0.031); IMMATURE GRAN % 0.4 % (0.001-0.429); Lymphocyte (Absolute #) 1.99 x10^3/uL (1.18-3.74); Lymphocytes % 19.9 % (19.3-51.7); Mean Cell Volume 83.4 fL (79.4-94.8); Mean Corpuscular Hemoglobin 27.8 pg (25.6-32.2); Mean Corpuscular Hgb Concent. 33.3 g/dL (32.2-35.5); Mean Platelet Volume 11.2 fL (9.4-12.3); Monocyte (Absolute #) 1.05 x10^3/uL (0.24-0.86); Monocytes % 10.5 % (4.7-12.5); Neutrophil % 68.5 % (34.0-71.1); Platelet Count 260 x10^3/uL (182-369); Red Blood Count 4.89 x10^6/uL (3.93-5.22); Red Cell Distribution Width 13.6 % (11.7-14.4)
[2024-10-23 15:57] LABS: ANION GAP 6.4 MEQ/L (5-15); BILIRUBIN,TOTAL 0.6 mg/dL (0.2-1.3); Calcium 8.9 mg/dL (8.4-10.2); Creatinine 1 0.87 mg/dL (0.52-1.04); EST GLOMERULAR FILTRATION RATE 84.2 ML/MIN; Total Protein 7.3 g/dL (6.3-8.2)
[2024-10-23 16:00] LABS: Potassium 2.9 mmol/L (3.5-5.1)
[2024-10-23] MEDS ORDERED: Magnesium 1 Gm / 100 Ml D5W*** 100 ML IV ONE ×2 (16:07→16:49)
[2024-10-23] MEDS ORDERED: Klor Con ONE (16:07)
[2024-10-23] MEDS ORDERED: POTASSIUM CHLORIDE 20 mEq IN WATER 100ML 100 ML IV ONE ×2 (16:08→18:18)
[2024-10-23] MEDS: POTASSIUM CHLORIDE 20 mEq IN WATER 100ML 20 MEQ/100 ML BAG IV SCH (16:09)
[2024-10-23] MEDS: Magnesium 1 Gm / 100 Ml D5W*** 100 ML IV SCH (16:09)
[2024-10-23] MEDS: Klor Con PO ONE (16:09)
--- NOTE | 2024-10-23 16:26 | ERPHSYRPT ---
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 Symptoms started Tuesday 3 days ago. Symptoms have been constant. Patient states she is unable to tolerate p.o. No abdominal pain. No diarrhea no rash no fever. Symptoms are mild to moderate in intensity. No specific worsening improving factors. Patient otherwise feels well. She voices no other complaints or concerns at this time. Portions of this note were created with voice recognition technology. There may be grammatical, spelling, punctuation or sound alike errors Timing/Duration: day(s) (3 days ago) Severity: moderate Modifying Factors: Improves With: nothing Associated Symptoms: headaches Allergies/Adverse Reactions: acetaminophen [From Excedrin Extra Strength] Allergy (Verified 10/23/24 15:28) Anaphylactic Reaction aspirin [From Excedrin Extra Strength] Allergy (Verified 10/23/24 15:28) Anaphylactic Reaction caffeine [From Excedrin Extra Strength] Allergy (Verified 10/23/24 15:28) Anaphylactic Reaction coconut oil Allergy (Verified 10/23/24 15:28) Hives red (food color) Allergy (Verified 10/23/24 15:28) Hives uracil mustard Allergy (Verified 10/23/24 15:28) Hives Home Medications: dilTIAZem HCL [Diltiazem 12Hr ER] 120 mg PO HS 07/23/22 [History] Trazodone HCl 50 mg [Desyrel 50 mg] 100 mg PO HS 12/24/22 [History] Lorazepam 1 mg [Ativan 1 MG] 1 mg PO BID 09/01/23 [History] Duloxetine HCl [Cymbalta] 60 mg PO DAILY 10/30/23 [History] Ixekizumab [Taltz Autoinjector] 80 mg SQ UD 08/16/24 [History] Albuterol Sulfate [Proair Respiclick] 90 mcg NEB UD 09/14/24 [History] EPINEPHrine [Auvi-Q] 0.1 mg SQ UD 09/14/24 [History] Fluticasone Propionate 50 mcg NEB UD 09/14/24 [History] Losartan Potassium 12.5 mg PO DAILY 09/14/24 [History] Metoprolol Tartrate 25 mg PO UD 09/14/24 [History] Phentermine HCl 37.5 mg PO UD 09/14/24 [History] Potassium Chloride 20 meq PO UD 09/14/24 [History] Sodium Fluoride/Potassium Nit [Denta 5000 Plus Sensitiv Paste] 1 each PO UD 09/14/24 [History] Solifenacin Succinate 10 mg PO UD 09/14/24 [History] Olanzapine/Samidorphan Malate [Lybalvi 5-10 mg Tablet] 1 each PO DAILY 10/12/24 [History] Hx Tetanus, Diphtheria Vaccination/Date Given: No Hx Influenza Vaccination/Date Given: Yes Hx Pneumococcal Vaccination/Date Given: No Travel Risk - International Travel Have you traveled outside of the country in past 3 weeks: No - Emerging Infectious Disease Are you exhibiting symptoms associated with any current EIDs: Yes Symptoms: Headaches/Body Aches/, Vomitting - Review of Systems Constitutional: No Symptoms, No Fever, No Chills Eyes: No Symptoms Ears, Nose, & Throat: No Symptoms Respiratory: No Symptoms, No Cough, No Dyspnea Cardiac: No Symptoms, No Chest Pain, No Edema, No Syncope Abdominal/Gastrointestinal: No Symptoms, No Abdominal Pain, No Nausea, No Vomiting, No Diarrhea Genitourinary Symptoms: No Symptoms, No Dysuria Musculoskeletal: No Symptoms, No Back Pain, No Neck Pain Skin: No Symptoms, No Rash Neurological: No Symptoms, No Dizziness, No Focal Weakness, No Sensory Changes Psychological: No Symptoms Endocrine: No Symptoms Hematologic/Lymphatic: No Symptoms Immunological/Allergic: No Symptoms All Other Systems: Reviewed and Negative - Past Medical History Pertinent Past Medical History: Yes Neurological History: No Pertinent History ENT History: No Pertinent History Cardiac History: Hypertension, Other Respiratory History: No Pertinent History Endocrine Medical History: No Pertinent History Musculoskeletal History: Osteoarthritis GI Medical History: No Pertinent History History: No Pertinent History Psycho-Social History: Anxiety, Bipolar, Depression Female Reproductive Disorders: No Pertinent History Other Medical History: 2 LEAKY HEART VALVES. R TENNIS ELBOW. Heart valve disorder. PA, psoriasis, gluten allergy - Past Surgical History Past Surgical History: Yes Neuro Surgical History: No Pertinent History Cardiac: No Pertinent History Respiratory: No Pertinent History Gastrointestinal: Other Genitourinary: Other Musculoskeletal: No Pertinent History Female Surgical History: Section, Tubal Ligation Other Surgical History: breast augmentation, cystoscopy, kidney stone removal, uterine ablation, - Female History Hx Last Menstrual Period: 12/02 Hx Now: No - Social History Smoking Status: Never smoker Exposure to second hand smoke: No Drug Use: none Patient Lives Alone: Yes - Social Determinants of Health Will the patient participate in the screening: Declined to provide - Nursing Vital Signs Nursing Vital Signs: Initial Vital Signs Temperature 96.7 F 10/23/24 15:34 Pulse Rate 85 10/23/24 15:34 Respiratory Rate 18 10/23/24 15:34 Blood Pressure 106/76 10/23/24 15:34 O2 Sat by Pulse Oximetry 98 10/23/24 15:34 Pain Scale Pain Intensity 7 - Physical Exam General Appearance: no apparent distress, alert Eye Exam: PERRL/EOMI, eyes nml inspection Ears, Nose, Throat Exam: normal ENT inspection, moist mucous membranes, other (Mildly erythematous oropharynx) Neck Exam: normal inspection, non-tender, supple, full range of motion Respiratory Exam: normal breath sounds, lungs clear, airway intact, No respiratory distress Cardiovascular Exam: regular rate/rhythm, normal heart sounds, normal peripheral pulses Gastrointestinal/Abdomen Exam: soft, normal bowel sounds, No tenderness, No mass Back Exam: normal inspection, normal range of motion, No CVA tenderness, No vertebral tenderness Extremity Exam: normal inspection, normal range of motion, pelvis stable Neurologic Exam: alert, 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, cooperative, normal mood/affect, sensation nml, No motor deficits Skin Exam: normal color, warm, dry, No rash Lymphatic Exam: No adenopathy SpO2 Interpretation: normal SpO2: 99 O2 Delivery: Room Air - Course Nursing assessment & vital signs reviewed: Yes Ordered Tests: Active Orders 24 hr Category Date Time Status Pediatric Immunologist STAT Care 10/23/24 15:41 Active IV Insertion STAT Care 10/23/24 15:41 Active Telemetry q4h Care 10/23/24 16:02 Active CBC W DIFF Stat Lab 10/23/24 Completed CMP Stat Lab 10/23/24 15:41 Completed HCG QUALITATIVE, URINE Stat Lab 10/23/24 17:37 Completed UA W/RFX UR CULTURE Stat Lab 10/23/24 17:37 Completed Medication Summary Generic Name Dose Route Start Last Admin Trade Name Mindy PRN Reason Stop Dose Admin Magnesium Sulfate/Dextrose 100 mls @ 100 mls/hr 10/23/24 16:15 10/23/24 16:57 Magnesium 1 Gm / 100 Ml D5w IV 10/23/24 18:14 100 mls/hr Q1H TAMMY Administration Potassium Chloride 20 meq in 100 mls @ 50 mls/hr 10/23/24 16:15 10/23/24 18:19 Potassium Chloride 20 Meq In Water 100ml IV 10/23/24 20:14 50 mls/hr Q2H TAMMY Administration Sodium Chloride 1,000 mls @ 100 mls/hr 10/23/24 17:00 10/23/24 17:54 Sodium Chloride 0.9% 1000 Ml IV 11/22/24 16:59 150 mls/hr .Q10H TAMMY Infusion Discontinued Medications Generic Name Dose Route Start Last Admin Trade Name Mindy PRN Reason Stop Dose Admin Sodium Chloride 1,000 mls @ 999 mls/hr 10/23/24 15:41 10/23/24 17:53 Sodium Chloride 0.9% 1000 Ml IV 10/23/24 16:41 Infused .Q1H1M STA Infusion Sodium Chloride Confirm 10/23/24 15:46 Sodium Chloride 0.9% 1000 Ml Administered 10/23/24 15:47 Dose 1,000 mls @ ud .ROUTE .STK-MED ONE Sodium Chloride Confirm 10/23/24 16:57 Sodium Chloride 0.9% 1000 Ml Administered 10/23/24 16:58 Dose 1,000 mls @ ud .ROUTE .STK-MED ONE Potassium Chloride 40 meq 10/23/24 16:02 10/23/24 16:09 Potassium Chloride Tab 10 Meq Tab PO 10/23/24 16:03 40 meq STAT ONE Administration Potassium Chloride Confirm 10/23/24 16:07 Potassium Chloride Tab 10 Meq Tab Administered 10/23/24 16:08 Dose 40 meq .ROUTE .STK-MED ONE Prochlorperazine Edisylate 10 mg 10/23/24 15:42 10/23/24 15:47 Prochlorperazine Edisylate 10 Mg/2 Ml Vial IV 10/23/24 15:43 10 mg STAT ONE Administration Prochlorperazine Edisylate Confirm 10/23/24 15:46 Prochlorperazine Edisylate 10 Mg/2 Ml Vial Administered 10/23/24 15:47 Dose 10 mg .ROUTE .[facility]-MED ONE Lab/Rad Data: Laboratory Result Diagrams 10/23/24 Unknown 10/23/24 15:41 Laboratory Results 10/23/24 10/23/24 10/23/24 Range/Units Unknown Unknown 17:37 WBC 10.0 (3.98-10.04) x10^3/uL RBC 4.89 (3.93-5.22) x10^6/uL Hgb 13.6 (11.2-15.7) g/dL Hct 40.8 (34.1-44.9) % MCV 83.4 (79.4-94.8) fL MCH 27.8 (25.6-32.2) pg MCHC 33.3 (32.2-35.5) g/dL RDW 13.6 (11.7-14.4) % Plt Count 260 (182-369) x10^3/uL MPV 11.2 (9.4-12.3) fL Gran % 68.5 (34.0-71.1) % Immature Gran % (Auto) 0.4 (0.001-0.429) % Nucleat RBC Rel Count 0.0 (0.00-0.2) % Eos # (Auto) 0.06 (0.04-0.36) x10^3/uL Immature Gran # (Auto) 0.04 H (0.001-0.031) x10^3u/L Absolute Lymphs (auto) 1.99 (1.18-3.74) x10^3/uL Absolute Monos (auto) 1.05 H (0.24-0.86) x10^3/uL Absolute Nucleated RBC 0.00 (0.00-0.012) x10^3u/L Lymphocytes % 19.9 (19.3-51.7) % Monocytes % 10.5 (4.7-12.5) % Eosinophils % 0.6 L (0.7-5.8) % Basophils % 0.1 (0.1-1.2) % Absolute Granulocytes 6.87 H (1.56-6.13) x10^3/uL Basophils # 0.01 (0.01-0.08) x10^3/uL Sodium (135-145) mmol/L Potassium (3.5-5.1) mmol/L Chloride (98-107) mmol/L Carbon Dioxide (22-30) mmol/L Anion Gap (5-15) MEQ/L BUN (7-17) mg/dL Creatinine (0.52-1.04) mg/dL Estimated GFR ML/MIN Glucose (74-106) mg/dL Calcium (8.4-10.2) mg/dL Total Bilirubin (0.2-1.3) mg/dL AST (14-36) U/L ALT (0-35) U/L Alkaline Phosphatase (38-126) U/L Serum Total Protein (6.3-8.2) g/dL Albumin (3.5-5.0) g/dL Urine Color (Yellow) Urine Appearance (Clear) Urine pH (4.6-8.0) Ur Specific [place] (1.005-1.030) Urine Protein (Negative) Urine Glucose (UA) (Negative) mg/dL Urine Ketones (Negative) Urine Blood (Negative) Urine Nitrite (Negative) Urine Bilirubin (Negative) Urine Urobilinogen (0.2) mg/dL Ur Leukocyte Esterase (Negative) U Hyaline Cast (Auto) (0-2) /LPF Urine Microscopic RBC (0-5) /HPF Urine Microscopic WBC (0-5) /HPF Ur Epithelial Cells (None Seen) /HPF Urine Bacteria (None Seen) /HPF Urine Culture Reflexed (NO) Urine HCG, Qual NEGATIVE (NEGATIVE) Influenza Type A Ag NEGATIVE (NEGATIVE) Influenza Type B Ag NEGATIVE (NEGATIVE) RSV (PCR) NEGATIVE (NEGATIVE) SARS-CoV-2 (PCR) NEGATIVE (NEGATIVE) Group A Strep Antibody (NEGATIVE) 10/23/24 10/23/24 10/23/24 Range/Units 17:37 16:45 15:41 WBC (3.98-10.04) x10^3/uL RBC (3.93-5.22) x10^6/uL Hgb (11.2-15.7) g/dL Hct (34.1-44.9) % MCV (79.4-94.8) fL MCH (25.6-32.2) pg MCHC (32.2-35.5) g/dL RDW (11.7-14.4) % Plt Count (182-369) x10^3/uL MPV (9.4-12.3) fL Gran % (34.0-71.1) % Immature Gran % (Auto) (0.001-0.429) % Nucleat RBC Rel Count (0.00-0.2) % Eos # (Auto) (0.04-0.36) x10^3/uL Immature Gran # (Auto) (0.001-0.031) x10^3u/L Absolute Lymphs (auto) (1.18-3.74) x10^3/uL Absolute Monos (auto) (0.24-0.86) x10^3/uL Absolute Nucleated RBC (0.00-0.012) x10^3u/L Lymphocytes % (19.3-51.7) % Monocytes % (4.7-12.5) % Eosinophils % (0.7-5.8) % Basophils % (0.1-1.2) % Absolute Granulocytes (1.56-6.13) x10^3/uL Basophils # (0.01-0.08) x10^3/uL Sodium 137 (135-145) mmol/L Potassium 2.9 L* (3.5-5.1) mmol/L Chloride 104 (98-107) mmol/L Carbon Dioxide 30 (22-30) mmol/L Anion Gap 6.4 (5-15) MEQ/L BUN 6 L (7-17) mg/dL Creatinine 0.87 (0.52-1.04) mg/dL Estimated GFR 84.2 ML/MIN Glucose 110 H (74-106) mg/dL Calcium 8.9 (8.4-10.2) mg/dL Total Bilirubin 0.60 (0.2-1.3) mg/dL AST 34 (14-36) U/L ALT 26 (0-35) U/L Alkaline Phosphatase 78 (38-126) U/L Serum Total Protein 7.3 (6.3-8.2) g/dL Albumin 4.0 (3.5-5.0) g/dL Urine Color Yellow (Yellow) Urine Appearance Clear (Clear) Urine pH 7.0 (4.6-8.0) Ur Specific [place] <=1.005 (1.005-1.030) Urine Protein Negative (Negative) Urine Glucose (UA) Negative (Negative) mg/dL Urine Ketones Negative (Negative) Urine Blood Negative (Negative) Urine Nitrite Negative (Negative) Urine Bilirubin Negative (Negative) Urine Urobilinogen 0.2 (0.2) mg/dL Ur Leukocyte Esterase Negative (Negative) U Hyaline Cast (Auto) NONE SEEN (0-2) /LPF Urine Microscopic RBC 0-2 (0-5) /HPF Urine Microscopic WBC 0-2 (0-5) /HPF Ur Epithelial Cells Many A (None Seen) /HPF Urine Bacteria Rare A (None Seen) /HPF Urine Culture Reflexed NO (NO) Urine HCG, Qual (NEGATIVE) Influenza Type A Ag (NEGATIVE) Influenza Type B Ag (NEGATIVE) RSV (PCR) (NEGATIVE) SARS-CoV-2 (PCR) (NEGATIVE) Group A Strep Antibody NOT DETECTED (NEGATIVE) - Progress Progress: improved Progress Note: 44-year-old female presents to our ED with nausea vomiting headache sore throat. RSV COVID influenza negative. Rapid strep negative. Laboratory workup reveals a hypokalemia likely secondary to nausea vomiting. IV fluids initiated. Patient received 2 g magnesium 40 mEq potassium IV. 40 mEq potassium p.o. Pat ient reassessed. Symptoms resolved. Headache resolved. Sore throat resolved. Patient tolerated p.o. Patient feels well states he is ready for discharge. Vital stable. Patient agrees to follow-up with her primary care doctor within 48 hours for reevaluation. She voices no other complaints or concerns at this time. Portions of this note were created with voice recognition technology. There may be grammatical, spelling, punctuation or sound alike errors Complexity of problem addressed is moderate acute complicated. No critical care time. Complexity of data reviewed and analyzed is moderate. Test ordered test reviewed results analyzed and correlated clinically with history and physical exam. Risk of complication and or risk of morbidity/mortality of patient management is moderate. A prescription for Zofran forwarded to patient's pharmacy.. Vital stable. Time spent to discharge patient is approximately 20 minutes. Plan of care established for shared decision making. No social determinants of health present to impede follow-up. Portions of this note were created with voice recognition technology. There may be grammatical, spelling, punctuation or sound alike errors 10/23/24 20:32 Counseled pt/family regarding: lab results, diagnosis, need for follow-up - Departure Departure Disposition: Home Clinical Impression: Headache, Sore throat, Nausea and vomiting, Hypokalemia Condition: Stable Critical Care Time: No Referrals: DEVORA BARKER TELECOMMUNICATION ENGINEER [Primary Care Provider] - Follow up/PCP as directed Additional Instructions: Discharge/Care Plan CARL AGUILARELLE was seen on 10/23/24 in the Emergency Room. The patient was counseled regarding Diagnosis,Lab results, Imaging studies, need for follow up and when to return to the Emergency Room. Prescriptions given: Discharge Note I have spoken with the patient and/or caregivers. I have explained the patient's condition, diagnosis and treatment plan based on the information available to me at this time. I have answered the patient's and/or caregiver's questions and addressed any concerns. The patient and/or caregivers have as good understanding of the patient's diagnosis, condition and treatment plan as can be expected at this point. The vital signs have been stable. The patient's condition is stable and appropriate for discharge from the emergency department. The patient will pursue further outpatient evaluation with the primary care physician or other designated or consulting physician as outlined in the discharge instructions. The patient and/or caregivers are agreeable to this plan of care and follow-up instructions have been explained in detail. The patient and/or caregivers have received these instruction. The patient/and or caregivers are aware that any significant change in condition or worsening of symptoms should prompt an immediate return to this or the closest emergency department or call 911. Prescriptions: Ondansetron ODT 4 MG [Zofran Odt 4 mg] 4 mg PO Q6H PRN PRN #10 tablet PRN Reason: Vomiting
[2024-10-23 16:31] LABS: INFLUENZA A NEGATIVE (NEGATIVE); INFLUENZA B NEGATIVE (NEGATIVE); RESPIRATORY SYNCTIAL VIRUS NEGATIVE (NEGATIVE); SARS-CoV-2 Xpert Express NEGATIVE (NEGATIVE)
[2024-10-23] MEDS: Sodium Chloride 0.9% 1000 ML 1,000 ML IV SCH (17:01)
[2024-10-23 18:07] LABS: HCG URINE TEST NEGATIVE (NEGATIVE)
[2024-10-23 18:11] LABS: Appearance Clear (Clear); Bacteria Rare /HPF (None Seen); Bilirubin Negative (Negative); Blood Negative (Negative); Epithelial Cells Many /HPF (None Seen); Glucose, Urine Negative (Negative); Hyaline Casts NONE SEEN /LPF (0-2); Ketones Negative (Negative); Leukocyte Esterase Negative (Negative); Nitrite Negative (Negative); Protein,Urine Dip Negative (Negative); RBC 0-2 /HPF (0-5); Specific Gravity <=1.005 (1.005-1.030); Urobilinogen 0.2 mg/dL (0.2); WBC 0-2 /HPF (0-5)
[2024-10-23 20:31] VITALS: BP 104/65; PULSE 82; RESP 16; O2SAT 99
== END 2024-10-23 20:36 | disposition home or self-care (01) ==
LOC: ED 14:54
DX: R11.2 Nausea with vomiting, unspecified (principal); R51.9 Headache, unspecified; J02.9 Acute pharyngitis, unspecified; E87.6 Hypokalemia; I10 Essential (primary) hypertension; Z79.899 Other long term (current) drug therapy
CPT/HCPCS: 0241U; 36415; 80053; 81001; 81025; 85025; 87651; 93041; 96360; 96361; 96365; 96366; 96374; 99285; 99284; J3475; J3480; A9270-GY